=== PATIENT | female | born 1985 | race Caucasian/White ===

== ENCOUNTER 2017-12-04 23:39 | Emergency (ER) | payer OTHER ==
[2017-12-04 23:50] VITALS: PULSE 82; TEMP 98.1; BMI 34.3
[2017-12-05] MEDS ORDERED: ACETAMINOPHEN 500 MG TABLET (FP) PO ONE (00:28)
--- NOTE | 2017-12-05 00:33 | PDOC ---
History of Present Illness - General Chief Complaint: Vaginal Bleeding Stated Complaint: , BLEEDING History Source: Patient Exam Limitations: No Limitations - History of Present Illness Initial Comments: 12/05/17 00:29 Patient is a 15-year-old female LMP 10/05/17 ectopic 2 complaining off lower abdominal pain mostly on the left side radiating to the back with vaginal bleeding CONFIGURATION MANAGEMENT SPECIALIST. Patient states that she had a little bit of cramping in her back tonight but when the bleeding started decided to come to the emergency room for evaluation. States she has been having 48 hour beta check last beta on 12/02/17 was 237. PMD: [facility] DESPATCH CLERK: Dr Mcmullen at [facility] PMHX: as above PSOCHX: neg etoh, drug, cig ALL: NKDA GENERAL/CONSTITUTIONAL: [No fever or chills. No weakness. No weight change.] HEAD, EYES, EARS, NOSE AND THROAT: [No change in vision. No ear pain or discharge. No sore throat.] CARDIOVASCULAR: [No chest pain or shortness of breath.] RESPIRATORY: [No cough, wheezing, or hemoptysis.] GASTROINTESTINAL: [No nausea, vomiting, diarrhea or constipation. No rectal bleeding.] GENITOURINARY: [No dysuria, frequency, or change in urination.] MUSCULOSKELETAL: [No joint or muscle swelling or pain. No neck or back pain.] SKIN AND BREASTS: [No rash or easy bruising.] NEUROLOGIC: [No headache, vertigo, loss of consciousness, or loss of sensation.] PSYCHIATRIC: [No depression or anxiety.] ENDOCRINE: [No increased thirst. No abnormal weight change.] HEMATOLOGIC/LYMPHATIC: [No anemia, easy bleeding, or history of blood clots.] ALLERGIC/IMMUNOLOGIC: [No hives or skin allergy. No latex allergy.] GENERAL: [The patient is awake, alert, and fully oriented, in mild distress.] HEAD: [Normal with no signs of trauma.] EYES: [Pupils equal, round and reactive to light, extraocular movements intact, sclera anicteric, conjunctiva clear.] ENT: [Ears normal, nares patent, oropharynx clear without exudates. Moist mucous membranes.] NECK: [Normal range of motion, supple without lymphadenopathy, JVD, or masses.] LUNGS: [Breath sounds equal, clear to auscultation bilaterally. No wheezes, and no crackles.] HEART: [Regular rate and rhythm, normal S1 and S2 without murmur, rub.] ABDOMEN: [Soft, (+) mild tenderness to the lower abd, normoactive bowel sounds. No guarding, no rebound. No masses.] EXTREMITIES: [Normal range of motion, no edema. No clubbing or cyanosis. No cords, erythema, or tenderness.] PELVIC: drak blood in the vault, no bleeding external os finger tip, NEUROLOGICAL: [Cranial nerves II through XII grossly intact. Normal speech, normal gait.] PSYCH: [Normal mood, normal affect.] SKIN: [Warm, Dry, normal turgor, no rashes or lesions noted.] Past History - Past Medical History Allergies/Adverse Reactions: Allergies Allergy/AdvReac Type Severity Reaction Status Date / Time No Known Allergies Allergy Verified 12/04/17 23:50 Home Medications: Ambulatory Orders Pnv,Calcium 72/Iron/Folic Acid [ Plus Tablet] 1 each PO DAILY 12/18/13 Montelukast Na [Singulair -] 10 mg PO HS 03/08/14 Albuterol Sulfate Inhaler - [Ventolin HFA Inhaler -] 1 - 2 inh PO DAILY Asthma: Yes Cancer: No Cardiac Disorders: No COPD: No Diabetes: No GI Disorders: Yes (GASTRITIS) HTN: No Seizures: No Thyroid Disease: No - Immunization History Immunization Up to Date: Yes - Suicide/Smoking/Psychosocial Hx Smoking History: Never smoked Have you smoked in the past 12 months: No Hx Alcohol Use: No Drug/Substance Use Hx: No Substance Use Type: None Hx Substance Use Treatment: No *Physical Exam - Vital Signs Last Vital Signs Temp Pulse Resp BP Pulse Ox 98.1 F 82 18 116/68 98 12/04/17 23:48 12/04/17 23:48 12/04/17 23:48 12/04/17 23:48 12/04/17 23:48 ED Treatment Course - LABORATORY CBC & Chemistry Diagram: 12/05/17 00:00 12/05/17 00:00 - RADIOLOGY Radiology Studies Ordered: Category Date Time Status <14WKS US [US] Stat Ultrasound 12/05/17 00:27 Ordered Medical Decision Making - Medical Decision Making 12/05/17 00:29 Patient is a 32-year-old female LMP 10/05/17 ectopic 2 complaining off lower abdominal pain mostly on the left side radiating to the back with vaginal bleeding CONFIGURATION MANAGEMENT SPECIALIST. Laboratory Tests 12/05/17 00:00 Blood Type O POSITIVE No acute findings on lab work HCG Quant 260 INTERPRETING RADIOLOGIST: Flora Riley MD Electronically Signed: Dec 05, 2017 01:35AM EDT 12/05/17 02:46 Patient Full Name: CLYDE KRUGER Patient Accession No: [id number] Patient : 1985 Reason for Exam: vag bleeding r/o ectopic Referring Physician: Patient Name: SASKIA TANG THIS IS A PRELIMINARY REPORT FROM IMAGING BUILDING SERVICE WORKER DATE OF SERVICE: 2017-12-05 00:46:08 IMAGES: 28 EXAM: OB Ultrasound < 14 wks single fetus and Duplex scan pelvis, complete No visible intrauterine gestational sac, possibly due to early gestation or spontaneous . Endometrial stripe thickness 10 mm. No adnexal masses appreciated. Advise correlation with quantitative serial beta-hCG and follow-up ultrasound as clinically indicated to exclude possibility of nonvisualized ectopic . No ovarian torsion. Color flow on the left and bilateral arterial and venous waveforms. 1.8 cm corpus luteum left ovary. No free fluid. THIS DOCUMENT HAS BEEN ELECTRONICALLY SIGNED Flora Riley M.D. 12/05/2017 01:34 HUGH Bacon Please call Imaging Automotive Diagnostic Technician [phone] ([phone]) with questions. INTERPRETING RADIOLOGIST: Flora Riley MD Electronically Signed: Dec 05, 2017 01:35AM EDT 12/05/17 03:02 Findings discussed with the patient she is aware that this could still be an ectopic . States she will follow-up with her DESPATCH CLERK today. 12/05/17 03:07 *DC/Admit/Observation/Transfer Diagnosis at time of Disposition: Vaginal bleeding during - Discharge Dispostion Disposition: HOME Condition at time of disposition: Stable - Referrals Referrals: Collette Friedman MD [Primary Care Provider] - - Patient Instructions Printed Discharge Instructions: DI for Vaginal Bleeding During , DI for Ectopic Additional Instructions: Your Discharge Instructions: You must call primary care physician within 24 hours to arrange follow-up. Return to the Emergency Department with any new, persistent or worsening symptoms, for fever, chills, SOB, dizziness or any other concerning changes that may occur. You must follow-up with her DESPATCH CLERK today for repeat blood testing and further evaluation. - Post Discharge Activity
[2017-12-05 01:09] LABS: BASO % 0.6 % (0-2.0); EOS % 2.8 % (0-4.5); HEMATOCRIT 36.2 % (32.4-45.2); HEMOGLOBIN 12.2 GM/dL (10.7-15.3); LYMPH % 31.3 % (8-40); MCHC 33.6 g/dl (32.0-36.0); MEAN CELL VOLUME 86.5 fl (80-96); MEAN PLT VOLUME 8.6 fl (7.5-11.1); MONO % 5.1 % (3.8-10.2); NEUT % 60.2 % (42.8-82.8); PLATELET COUNT 319 K/MM3 (134-434); RBC 4.19 M/mm3 (3.60-5.2); RDW 13.9 % (11.6-15.6)
[2017-12-05] MEDS ORDERED: ACETAMINOPHEN 325 MG TABLET (FP) ONE (01:25)
[2017-12-05 01:33] LABS: ALBUMIN 3.9 g/dl (3.4-5.0); ALK PHOS 76 U/L (45-117); ANION GAP 6 MMOL/L (8-16); BILIRUBIN,TOTAL 0.2 mg/dL (0.2-1); BLOOD UREA NITROGEN 8 mg/dL (7-18); CALCIUM 8.9 mg/dL (8.5-10.1); CHLORIDE 104 mmol/L (98-107); CO2 27 mmol/L (21-32); CREATININE 0.8 mg/dL (0.55-1.3); GLUCOSE,RANDOM 98 mg/dL (74-106); POTASSIUM 3.7 mmol/L (3.5-5.1); SGOT/AST 14 U/L (15-37); SGPT/ALT 25 U/L (13-61); SODIUM 138 mmol/L (136-145); TOT PROT 7.4 g/dl (6.4-8.2)
[2017-12-05 03:10] VITALS: BP 106/73
== END 2017-12-05 03:22 | disposition home or self-care (01) ==
LOC: JER 23:39
DX: O26.891 Other specified pregnancy related conditions, first trimester (principal); O20.8 Other hemorrhage in early pregnancy; Z3A.00 Weeks of gestation of pregnancy not specified
CPT/HCPCS: 36415; 76817-TC; 80053; 84702; 85025; 86850; 86900; 86901; 99282-25

== ENCOUNTER 2017-12-23 22:11 | Emergency (ER) | payer OTHER ==
[2017-12-23 22:19] VITALS: BP 108/66; PULSE 72; TEMP 97.9; BMI 35.2
--- NOTE | 2017-12-23 22:36 | PDOC ---
History of Present Illness - General History Source: Patient Exam Limitations: No Limitations - History of Present Illness Initial Comments: 12/23/17 23:49 The patient is a 32 year old female () with a significant PMH of asthma and gastritis who presents to the emergency department from her OB for evaluation of possible ectopic . The patient report sthat she has had a history of several ectopics in the past by which her right tube was removed. The patient reports some associated abdominal cramping , lightheadedness . the patient was concerned for possible rupture of left ectopic. The patient denies any other symptoms. She denies any fever, chills, nausea, vomiting, diarrhea, constipation or urinary symptoms. She denies any chest pain, shortness of breath , headache or dizziness. The patient denies any other complaints. <Nishant Zendejas - Last Filed: 12/23/17 23:49> <Maggy Lebron - Last Filed: 12/24/17 01:20> - General Chief Complaint: Vaginal Sxs Stated Complaint: ECTOPIC Time Seen by Provider: 12/23/17 22:24 Past History <Nishant Zendejas - Last Filed: 12/23/17 23:49> - Past Medical History Asthma: Yes Cancer: No Cardiac Disorders: No COPD: No Diabetes: No GI Disorders: Yes (GASTRITIS) HTN: No Seizures: No Thyroid Disease: No - Reproductive History (#): 4 Para: 1 Ectopic : Yes (X2) - Immunization History Immunization Up to Date: Yes - Suicide/Smoking/Psychosocial Hx Smoking History: Never smoked Have you smoked in the past 12 months: No Hx Alcohol Use: No Drug/Substance Use Hx: No Substance Use Type: None Hx Substance Use Treatment: No <Maggy Lebron - Last Filed: 12/24/17 01:20> - Past Medical History Allergies/Adverse Reactions: Allergies Allergy/AdvReac Type Severity Reaction Status Date / Time No Known Allergies Allergy Verified 12/23/17 22:19 Home Medications: Ambulatory Orders Montelukast Na [Singulair -] 10 mg PO HS 03/08/14 Albuterol Sulfate Inhaler - [Ventolin HFA Inhaler -] 1 - 2 inh PO DAILY PRN 12/12 metFORMIN HCL [Metformin HCl] 500 mg PO BID 12/05/17 Review of Systems - Review of Systems Able to Perform ROS?: Yes Comments:: 12/23/17 23:49 GENERAL/CONSTITUTIONAL: No fever or chills. No weakness. HEAD, EYES, EARS, NOSE AND THROAT: No change in vision. No ear pain or discharge. No sore throat. CARDIOVASCULAR: No chest pain or shortness of breath. RESPIRATORY: No cough, wheezing, or hemoptysis. GASTROINTESTINAL: No nausea, vomiting, diarrhea or constipation. GENITOURINARY: (+)abdominal cramping. No dysuria, frequency, or change in urination. MUSCULOSKELETAL: No joint or muscle swelling or pain. No neck or back pain. SKIN: No rash NEUROLOGIC: (+)lightheaded. No headache, vertigo, loss of consciousness, or change in strength/sensation. ENDOCRINE: No increased thirst. No abnormal weight change. HEMATOLOGIC/LYMPHATIC: No anemia, easy bleeding, or history of blood clots. ALLERGIC/IMMUNOLOGIC: No hives or skin allergy. <Nishant Zendejas - Last Filed: 12/23/17 23:49> *Physical Exam - Vital Signs Last Vital Signs Temp Pulse Resp BP Pulse Ox 97.9 F 72 18 108/66 98 12/23/17 22:17 12/23/17 22:17 12/23/17 22:17 12/23/17 22:17 12/23/17 22:17 - Physical Exam Comments: 12/23/17 23:49 GENERAL: Awake, alert, and fully oriented, in no acute distress HEAD: No signs of trauma EYES: PERRLA, EOMI, sclera anicteric, conjunctiva clear ENT: Auricles normal inspection, hearing grossly normal, nares patent, oropharynx clear without exudates. Moist mucosa NECK: Normal ROM, supple, no lymphadenopathy, JVD, or masses LUNGS: Breath sounds equal, clear to auscultation bilaterally. No wheezes, and no crackles HEART: Regular rate and rhythm, normal S1 and S2, no murmurs, rubs or gallops ABDOMEN: Soft, nontender, normoactive bowel sounds. No guarding, no rebound. No masses. No free fluid on bedside US. EXTREMITIES: Normal range of motion, no edema. No clubbing or cyanosis. No cords, erythema, or tenderness NEUROLOGICAL: Cranial nerves II through XII grossly intact. Normal speech, normal gait SKIN: Warm, Dry, normal turgor, no rashes or lesions noted. <Nishant Zendejas - Last Filed: 12/23/17 23:49> - Vital Signs Last Vital Signs Temp Pulse Resp BP Pulse Ox 97.9 F 72 18 108/66 98 12/23/17 22:17 12/23/17 22:17 12/23/17 22:17 12/23/17 22:17 12/23/17 22:17 <Maggy Lebron - Last Filed: 12/24/17 01:20> ED Treatment Course - LABORATORY CBC & Chemistry Diagram: 12/23/17 22:52 12/23/17 22:52 - ADDITIONAL ORDERS Additional order review: Laboratory Results 12/23/17 12/23/17 22:52 22:52 Sodium 141 Potassium 3.8 Chloride 107 Carbon Dioxide 24 Anion Gap 10 BUN 10 Creatinine 0.7 Creat Clearance w eGFR > 60 Random Glucose 105 Calcium 8.5 Total Bilirubin 0.3 AST 13 L ALT 33 Alkaline Phosphatase 80 Total Protein 7.0 Albumin 3.5 Beta HCG, Quant 742.6 Urine Color Yellow Urine Appearance Slcloudy Urine pH 5.0 Ur Specific [place] 1.013 Urine Protein Negative Urine Glucose (UA) Negative Urine Ketones Negative Urine Blood 3+ H Urine Nitrite Negative Urine Bilirubin Negative Urine Urobilinogen Negative Ur Leukocyte Esterase 1+ H Urine WBC (Auto) 10 Urine RBC (Auto) 1 Ur Epithelial Cells Few Urine Bacteria Rare Urine Mucus Rare 12/23/17 22:52 RBC 4.17 MCV 86.9 MCHC 33.4 RDW 14.1 MPV 8.1 Neutrophils % 57.1 Lymphocytes % 30.1 Monocytes % 5.9 D Eosinophils % 6.4 H Basophils % 0.5 <Nishant Zendejas - Last Filed: 12/23/17 23:49> - LABORATORY CBC & Chemistry Diagram: 12/23/17 22:52 12/23/17 22:52 <Maggy Lebron - Last Filed: 12/24/17 01:20> Medical Decision Making - Medical Decision Making 12/23/17 22:44 a/p: 32yo with 2 prior ectopic pregnancies - one with ruptured R fallopian tube presents with concern for poss rupture of her L ectopic -known ectopic - given methotrexate x two doses -pt states she is concerned she has ruptured -pt walks in NAD -abd is soft, nt, nd -bedside ultrasound is negative for FF -will send labs, beta, type and screen, and TVUS -case discussed with Dr. Chantelle Carroll [phone] who agrees with the plan and requests call with results 12/24/17 00:06 outpt beta 880 yesterday beta 742 today 12/24/17 00:07 12/24/17 01:10 pt without adnexal mass, no ff, no iup on ultrasound case again discussed with Dr. Carroll beta is decreasing stable for d/c to home 12/24/17 01:11 O+ on labs <Maggy Lebron - Last Filed: 12/24/17 01:20> *DC/Admit/Observation/Transfer - Attestations Scribe Attestion: 12/23/17 23:51 Documentation prepared by Nishant Zendejas, acting as medical radiation therapist for Maggy Lebron MD. <Nishant Zendejas - Last Filed: 12/23/17 23:49> - Discharge Dispostion Decision to Admit order: No - Attestations Physician Attestion: 12/24/17 01:19 I, Dr. Maggy Lebron, DO, attest that this document has been prepared under my direction and personally reviewed by me in its entirety. I further attest, that it accurately reflects all work, treatment, procedures and medical decision -making performed by me. <Maggy Lebron - Last Filed: 12/24/17 01:20> Diagnosis at time of Disposition: Ectopic - Discharge Dispostion Disposition: HOME Condition at time of disposition: Stable - Referrals Referrals: Collette Friedman MD [Primary Care Provider] - Yousif Sagastume MD [Staff Physician] - - Patient Instructions Printed Discharge Instructions: DI for Ectopic Additional Instructions: Please follow up with your SOFTWARE SALES REPRESENTATIVE as discussed. Please drink plenty of fluids. Please return to the ED with any further concerns or complaints.
[2017-12-23 23:13] LABS: BASO % 0.5 % (0-2.0); EOS % 6.4 % (0-4.5); HEMATOCRIT 36.3 % (32.4-45.2); HEMOGLOBIN 12.1 GM/dL (10.7-15.3); LYMPH % 30.1 % (8-40); MCHC 33.4 g/dl (32.0-36.0); MEAN CELL VOLUME 86.9 fl (80-96); MEAN PLT VOLUME 8.1 fl (7.5-11.1); MONO % 5.9 % (3.8-10.2); NEUT % 57.1 % (42.8-82.8); PLATELET COUNT 302 K/MM3 (134-434); RBC 4.17 M/mm3 (3.60-5.2); RDW 14.1 % (11.6-15.6); URINE APPEARANCE SLCLOUDY; URINE BILIRUBIN NEGATIVE (<2.0 mg/dL); URINE COLOR YELLOW; URINE GLUCOSE (UA) NEGATIVE (NEGATIVE); URINE KETONE NEGATIVE (NEGATIVE); URINE LEUK ESTERASE 1+ (NEGATIVE); URINE NITRITE NEGATIVE (NEGATIVE); URINE PROTEIN NEGATIVE (NEGATIVE); URINE UROBILINOGEN NEGATIVE mg/dL (0.2-1.0); WHITE BLOOD COUNT 9.2 K/mm3 (4.0-10.0)
[2017-12-23 23:18] LABS: EPI CELLS FEW /HPF (FEW); URINE BACTERIA RARE /hpf (NONE SEEN); URINE MUCUS RARE
[2017-12-23] MEDS ORDERED: SODIUM CHLORIDE 0.9% 1000 ML INFUS.BAG IV ONE (23:36)
[2017-12-23 23:47] LABS: ALBUMIN 3.5 g/dl (3.4-5.0); ALK PHOS 80 U/L (45-117); ANION GAP 10 MMOL/L (8-16); BILIRUBIN,TOTAL 0.3 mg/dL (0.2-1); BLOOD UREA NITROGEN 10 mg/dL (7-18); CALCIUM 8.5 mg/dL (8.5-10.1); CHLORIDE 107 mmol/L (98-107); CO2 24 mmol/L (21-32); CREATININE 0.7 mg/dL (0.55-1.3); GLUCOSE,RANDOM 105 mg/dL (74-106); POTASSIUM 3.8 mmol/L (3.5-5.1); SGOT/AST 13 U/L (15-37); SGPT/ALT 33 U/L (13-61); SODIUM 141 mmol/L (136-145)
[2017-12-23] MEDS ORDERED: ONDANSETRON 4 MG/2 ML VIAL ONE (23:58)
[2017-12-24] MEDS ORDERED: ONDANSETRON 4 MG/2 ML VIAL IVPUSH ONE (00:02)
[2017-12-24] MEDS ORDERED: METOCLOPRAMIDE HCL INJECTION 10 MG/2 ML VIAL IVPUSH ONE (01:11)
[2017-12-24] MEDS ORDERED: METOCLOPRAMIDE HCL INJECTION 10 MG/2 ML VIAL ONE (01:21)
== END 2017-12-24 01:57 | disposition home or self-care (01) ==
LOC: JER 22:11
PROC: 3E033GC Introduction of Other Therapeutic Substance into Peripheral Vein, Percutaneous Approach (ICD-10-PCS; principal; 2017-12-23)
PROC: 3E033GC Introduction of Other Therapeutic Substance into Peripheral Vein, Percutaneous Approach (ICD-10-PCS; 2017-12-23)
DX: O00.90 Unspecified ectopic pregnancy without intrauterine pregnancy (principal); Z3A.00 Weeks of gestation of pregnancy not specified
CPT/HCPCS: 36415; 76817-TC; 80053; 81003; 81015; 84702; 85025; 86850; 86900; 86901; 87086; 99281-25; J7030

== ENCOUNTER 2017-12-31 07:29 | Day surgery (SDC) | payer OTHER ==
[2017-12-31 07:32] VITALS: BMI 35.2
--- NOTE | 2017-12-31 07:34 | PDOC ---
Attending Attestation - Resident Resident Name: Arben Josue - HPI HPI: 12/31/17 12:26 Pt presents to the ED complaining of the acute onset of severe left lower abdominal pain that started last night. History of known ectopic in the L adnexa--treated with methotrexate. Followed by Dr. Dale. Patient was refusing surgery and bHCG was declining after surgery, but today complains of severely worsening pain. Patient is extremely uncomfortable and unable to give complete history. - Physicial Exam PE: 12/31/17 12:31 Agree with resident exam. Patient is extremly uncomfortable, tearful and writhing on the stretcher. Abdomen is soft, non distended and without localizing tenderness. Normotensive. - Critical Care Time Total Critical Care Time: 30 Critical Care Statement: The care of this patient involved high complexity decision making to prevent further life threatening deterioration of the patient 's condition and/or to evaluate & treat vital organ system(s) failure or risk of failure. - Medical Decision Making 12/31/17 12:32 Pt presents to the ED complaining of severe pain. Pt has known history of ectopic. Concern for ruptured ectopic. Bedside FAST negative. patient requiring multiple doses of fentynyl for pain control. Official US shows persistent ectopic. Dr. Dale at the bedside, will take patient to the OR.
[2017-12-31 07:52] LABS: BASO % 1.3 % (0-2.0); EOS % 7.9 % (0-4.5); HEMOGLOBIN 13.1 GM/dL (10.7-15.3); LYMPH % 39.8 % (8-40); MCH 29.9 pg (25.7-33.7); MCHC 34.4 g/dl (32.0-36.0); MEAN CELL VOLUME 86.8 fl (80-96); MEAN PLT VOLUME 8.2 fl (7.5-11.1); MONO % 5.9 % (3.8-10.2); NEUT % 45.1 % (42.8-82.8); PLATELET COUNT 363 K/MM3 (134-434); RBC 4.38 M/mm3 (3.60-5.2); RDW 14.3 % (11.6-15.6); WHITE BLOOD COUNT 7.2 K/mm3 (4.0-10.0)
[2017-12-31 08:06] LABS: INR 0.97 (0.83-1.09); PROTHROMBIN TIME (PATIENT) 11.4 SEC (9.7-13.0)
[2017-12-31 08:09] LABS: ACTIVATED PTT 29.1 SECONDS (25.2-36.5)
[2017-12-31 08:18] LABS: ALBUMIN 3.7 g/dl (3.4-5.0); ALK PHOS 90 U/L (45-117); ANION GAP 7 MMOL/L (8-16); BILIRUBIN,TOTAL 0.2 mg/dL (0.2-1); BLOOD UREA NITROGEN 10 mg/dL (7-18); CALCIUM 8.8 mg/dL (8.5-10.1); CHLORIDE 104 mmol/L (98-107); CO2 26 mmol/L (21-32); CREATININE 0.8 mg/dL (0.55-1.3); GLUCOSE,RANDOM 107 mg/dL (74-106); POTASSIUM 4.1 mmol/L (3.5-5.1); SGOT/AST 12 U/L (15-37); SGPT/ALT 22 U/L (13-61); SODIUM 137 mmol/L (136-145); TOT PROT 7.3 g/dl (6.4-8.2)
--- NOTE | 2017-12-31 09:53 | PDOC ---
History of Present Illness - General Chief Complaint: Pain, Acute Stated Complaint: PAIN Time Seen by Provider: 12/31/17 07:34 History Source: Patient Exam Limitations: No Limitations - History of Present Illness Initial Comments: 12/31/17 09:44 32 yo female PMH of ectopic and also current known ectopic non responsive to methotrexate presents to the ED with severe abdominal pain. States the pain started 10:30 pm last night and has progressively worsened over the course of the night. Dr. Dale (OB drafter electronic) is aware of the patient and is on route to the hospital. Past History - Past Medical History Allergies/Adverse Reactions: Allergies Allergy/AdvReac Type Severity Reaction Status Date / Time No Known Allergies Allergy Verified 12/23/17 22:19 Home Medications: Ambulatory Orders Montelukast Na [Singulair -] 10 mg PO HS 03/08/14 Albuterol Sulfate Inhaler - [Ventolin HFA Inhaler -] 1 - 2 inh PO DAILY PRN 12/12 metFORMIN HCL [Metformin HCl] 500 mg PO BID 12/05/17 Asthma: Yes Cancer: No Cardiac Disorders: No COPD: No Diabetes: No GI Disorders: Yes (GASTRITIS) HTN: No Seizures: No Thyroid Disease: No Other medical history: ectopic 01/15 - Reproductive History (#): 4 Para: 1 Ectopic : Yes (X2) - Immunization History Immunization Up to Date: Yes - Suicide/Smoking/Psychosocial Hx Smoking History: Unknown if ever smoked Have you smoked in the past 12 months: No Hx Alcohol Use: No Drug/Substance Use Hx: No Substance Use Type: None Hx Substance Use Treatment: No *Physical Exam - Vital Signs Last Vital Signs Temp Pulse Resp BP Pulse Ox 105 H 22 H 111/88 98 12/31/17 07:29 12/31/17 07:29 12/31/17 07:29 12/31/17 07:29 ED Treatment Course - LABORATORY CBC & Chemistry Diagram: 12/31/17 07:40 12/31/17 07:40 - ADDITIONAL ORDERS Additional order review: Laboratory Results 12/31/17 12/31/17 12/31/17 07:42 07:40 07:40 PT with INR 11.40 INR 0.97 PTT (Actin FS) 29.1 Sodium 137 Potassium 4.1 Chloride 104 Carbon Dioxide 26 Anion Gap 7 L BUN 10 Creatinine 0.8 Creat Clearance w eGFR > 60 Random Glucose 107 H Calcium 8.8 Total Bilirubin 0.2 AST 12 L ALT 22 Alkaline Phosphatase 90 Total Protein 7.3 Albumin 3.7 Beta HCG, Quant 417.7 12/31/17 07:40 RBC 4.38 MCV 86.8 MCHC 34.4 RDW 14.3 MPV 8.2 Neutrophils % 45.1 D Lymphocytes % 39.8 D Monocytes % 5.9 Eosinophils % 7.9 H Basophils % 1.3 - RADIOLOGY Radiology Studies Ordered: Category Date Time Status TRANSVAGINAL US PREG [US] Stat Ultrasound 12/31/17 07:44 Taken - Medications Given in the ED: ED Medications Discontinued Medications Generic Name Dose Route Start Last Admin Trade Name Freq PRN Reason Stop Dose Admin Fentanyl 50 mcg 12/31/17 07:35 12/31/17 07:34 Sublimaze Injection - IVPUSH 12/31/17 07:36 50 mcg ONCE ONE Administration Fentanyl 50 mcg 12/31/17 08:44 12/31/17 08:53 Sublimaze Injection - IVPUSH 12/31/17 08:45 50 mcg ONCE ONE Administration *DC/Admit/Observation/Transfer Diagnosis at time of Disposition: Ectopic , tubal Qualifiers: Intrauterine status: unspecified Laterality: unspecified laterality Qualified Code(s): O00.109 - Unspecified tubal without intrauterine - Discharge Dispostion Condition at time of disposition: Stable - Referrals - Patient Instructions - Post Discharge Activity
[2017-12-31] MEDS ORDERED: BUPIVACAINE HCL/PF 0.5% (5MG/ML) 10 ML VIAL ONE (11:09)
[2017-12-31] MEDS ORDERED: ONDANSETRON 4 MG/2 ML VIAL IVPUSH PRN (11:37)
[2017-12-31] MEDS ORDERED: PROMETHAZINE HCL 25 MG/1 ML VIAL IVPUSH PRN (11:37)
[2017-12-31] MEDS ORDERED: LACTATED RINGERS SOLUTION 1,000 ML IV SCH ×2 (11:45→13:45)
[2017-12-31] MEDS ORDERED: GLYCOPYRROLATE 0.2 MG/1 ML VIAL ONE (11:49)
[2017-12-31] MEDS ORDERED: fentaNYL CITRATE 250 MCG/5 ML VIAL ONE (11:49)
[2017-12-31] MEDS ORDERED: DEXAMETHASONE SOD PHOSPHATE 4 MG/1 ML VIAL ONE (11:49)
[2017-12-31] MEDS ORDERED: KETOROLAC TROMETHAMINE 30 MG/1 ML VIAL ONE (11:49)
[2017-12-31] MEDS ORDERED: ceFAZolin SODIUM 1 GM VIAL ONE (11:49)
[2017-12-31] MEDS ORDERED: ROCURONIUM BROMIDE 50 MG/5 ML VIAL ONE (11:50)
[2017-12-31] MEDS ORDERED: PROPOFOL 20 ML ONE ×2 (11:50)
[2017-12-31] MEDS ORDERED: LIDOCAINE HCL/PF 2% SDV 5ML VIAL ONE (11:50)
[2017-12-31] MEDS ORDERED: MIDAZOLAM HCL 2 MG/2 ML SINGLE DOSE VIAL ONE ×2 (11:50→12:22)
[2017-12-31] MEDS ORDERED: SUCCINYLCHOLINE CHLORIDE 200 MG/10 ML VIAL ONE (11:50)
[2017-12-31] MEDS ORDERED: NEOSTIGMINE METHYLSULFATE 0.5 MG/ML - 10 ML MDV ONE (11:50)
[2017-12-31] MEDS ORDERED: ALBUTEROL SO4 8 GM HFA INHALER IH ONE (11:57)
[2017-12-31] MEDS ORDERED: ACETAMINOPHEN INJECTION 100 ML IVPB ONE (12:13)
[2017-12-31] MEDS ORDERED: methylPREDNISolone ACET (DEPO) 80 MG/1 ML VIAL ONE (12:13)
[2017-12-31] MEDS ORDERED: KETAMINE HCL 200 MG/20 ML VIAL ONE (12:19)
--- NOTE | 2017-12-31 12:30 | EKG ---
Test Reason : Blood Pressure : / mmHG Vent. Rate : 080 BPM Atrial Rate : 080 BPM P-R Int : 136 ms QRS Dur : 076 ms QT Int : 382 ms P-R-T Axes : 058 083 039 degrees QTc Int : 440 ms NORMAL SINUS RHYTHM NORMAL ECG WHEN COMPARED WITH ECG OF 18-DEC-2017 17:55, NO SIGNIFICANT CHANGE WAS FOUND Confirmed by JE HUMMEL MD ([id number]) on 12/31/2017 12:29:30 PM Referred By: Confirmed By:JE HUMMEL MD
[2017-12-31] MEDS ORDERED: ceFAZolin SODIUM 1 GM VIAL IVPB ONE (12:37)
[2017-12-31] MEDS ORDERED: LIDOCAINE HCL 2% JELLY (5 ML/TUBE) ONE (13:07)
[2017-12-31] MEDS ORDERED: BUPIVACAINE HCL/PF (5 MG/ML) 30 ML VIAL IJ ONE (13:14)
--- NOTE | 2017-12-31 13:36 | HP ---
Admitting History and Physical - Admission History of Present Illness: 32 yo with hx/o known ectopic s/p methotrexate x 2, declining bHCGs in severe pain she was counseled previously regarding sugical intervention in the past, but declined surgery. She presents with chief complaint of severe abdominal and back pain, feeling "like the last time my tube ruptured" course of treatment: 11/28 bHCG 45.4 11/30 bHCG 102.1 12/02 bHCG 237.30 12/05 bHCG 179.6 12/07 bHCG 273.80 12/08 bHCG 335; MTX [facility] 12/16 MTX 100mg given 12/19 [facility] 927.6 12/26 bHCG 740.40 12/29 [facility] 496.30 Limitations to Obtaining History: No Limitations - Past Medical History Pulmonary: Yes: Asthma Gastrointestinal: Yes: GERD, Other (Fatty Liver Disease) ...LMP: 10/05/17 Psych: Yes: Other (nervous tic) - Past Surgical History Additional Past Surgical History: Sinus surgery LS Right salpingectomy - Smoking History Smoking history: Unknown if ever smoked Have you smoked in the past 12 months: No - Alcohol/Substance Use Hx Alcohol Use: No Home Medications - Allergies Allergies/Adverse Reactions: Allergies Allergy/AdvReac Type Severity Reaction Status Date / Time No Known Allergies Allergy Verified 12/23/17 22:19 - Home Medications Home Medications: Ambulatory Orders Montelukast Na [Singulair -] 10 mg PO HS 03/08/14 Albuterol Sulfate Inhaler - [Ventolin HFA Inhaler -] 1 - 2 inh PO DAILY PRN 12/12 metFORMIN HCL [Metformin HCl] 500 mg PO BID 12/05/17 Acetaminophen W/ Codeine #3 [Tylenol # 3 -] 1 tab PO Q6H #10 tablet MDD 4 Review of Systems - Review of Systems Constitutional: reports: No Symptoms Cardiovascular: reports: No Symptoms Respiratory: reports: No Symptoms Gastrointestinal: reports: No Symptoms Genitourinary: reports: No Symptoms Integumentary: reports: No Symptoms Endocrine: reports: No Symptoms Psychiatric: reports: No Symptoms Physical Examination Vital Signs: Vital Signs Temperature 99.5 F 12/31/17 11:05 Pulse Rate 98 H 12/31/17 11:05 Respiratory Rate 16 11/03/18 11:05 Blood Pressure 110/71 12/31/17 11:05 O2 Sat by Pulse Oximetry (%) 96 12/31/17 11:05 Constitutional: Yes: Well Nourished, No Distress, Calm Cardiovascular: Yes: Regular Rate and Rhythm Respiratory: Yes: Regular, CTA Bilaterally Gastrointestinal: Yes: Normal Bowel Sounds, Soft Neurological: Yes: Alert, Oriented Psychiatric: Yes: Alert, Oriented Labs: CBC, BMP 12/31/17 07:40 12/31/17 07:40 Assessment/Plan 32 yo with known left ectopic pregnacy, s/p MTX x 2, withs evere pain, complex fluid in cul de sac, suspect rupture 1. Patient counseled regarding medical and surgical management, plan for laparoscopic left salpingostomy, possible salpingectomy. She desires to retain fertility if possible. Reviewed risk of infection, bleeding, damage to surrounding organs such as bowel, bladder, need for laprotomy She expressed understanding, written consent obtained 2. Notiied anesthesia nd OR staff 3. Will proceed to OR
--- NOTE | 2017-12-31 13:39 | OP ---
Operative Note - Note: Operative Date: 12/31/17 Pre-Operative Diagnosis: left ectopic Operation: laparoscopic left salpingectomy Findings: ruptured left ectopic , approximately 100 cc hemoperitoneum, normal ovaries bilaterally, partial right tube Surgeon: Joslyn Dale Office Nurse: Moncho Mcmullen Anesthesiologist/ETCHER ELECTROLYTIC: Leonel Page Anesthesia: General Specimens Removed: left fallopian tube and Estimated Blood Loss (mls): 5 Drains, Volume Out (mls): 250 Fluid Volume Replaced (mls): 1,500 Operative Report Dictated: Yes
[2017-12-31] MEDS ORDERED: IBUPROFEN 600 MG TABLET (FP) PO PRN (13:43)
[2017-12-31] MEDS ORDERED: oxyCODONE HCL 5 MG TABLET PO PRN (13:44)
[2017-12-31] MEDS: IBUPROFEN 800 MG/8 ML IJ IVPB PRN ×2 (16:30→23:39)
[2017-12-31] MEDS: ACETAMINOPHEN 325 MG TABLET (FP) PO PRN (17:13)
[2018-01-01] MEDS: ACETAMINOPHEN 325 MG TABLET (FP) PO PRN ×2 (01:20→08:37)
--- NOTE | 2018-01-01 08:00 | PN ---
Progress Note (SOAP) - Subjective History of Present Illness: Patient without acute complaitns Reports pain, moderately controlled with PO meds No N/V Tolerating PO No fevers or chils No Chest pain or shortness of breath - Current Medications Current Medications: Active Medications Acetaminophen (Tylenol -) 650 mg PO Q4H PRN PRN Reason: PAIN Last Admin: 01/01/18 01:20 EST Dose: 650 mg Lactated Ringer's (Lactated Ringers Solution) 1,000 mls @ 125 mls/hr IV ASDIR GILDA Last Admin: 12/31/17 15:35 Dose: 0 mls Lactated Ringer's (Lactated Ringers Solution) 1,000 mls @ 125 mls/hr IV ASDIR GILDA Ibuprofen (Motrin -) 600 mg PO Q6H PRN PRN Reason: FEVER Ibuprofen (Caldolor Injection -) 800 mg IVPB Q8H PRN PRN Reason: Fever - If PO not effective Last Admin: 12/31/17 23:39 Dose: 800 mg Ondansetron HCl (Zofran Injection) 4 mg IVPUSH Q6H PRN PRN Reason: NAUSEA AND/OR VOMITING Oxycodone HCl (Roxicodone -) 5 mg PO Q4H PRN PRN Reason: PAIN - Objective Vital Signs: Vital Signs Temperature 97.8 F 01/01/18 06:25 Pulse Rate 90 01/01/18 06:25 Respiratory Rate 20 01/01/18 06:25 Blood Pressure 108/63 01/01/18 06:25 O2 Sat by Pulse Oximetry (%) 98 01/01/18 06:25 Constitutional: Yes: Well Nourished, No Distress Respiratory: Yes: Regular, CTA Bilaterally Gastrointestinal: Yes: Normal Bowel Sounds, Soft Extremities: Yes: WNL Edema: No Wound/Incision: Yes: Clean/Dry, Well Approximated ...Motor Strength: Yes: WNL Psychiatric: Yes: Alert, Oriented Labs Lab Results: CBC, BMP 12/31/17 07:40 12/31/17 07:40 Assessment/Plan 32 yo POD # 1 s/p LS left salpingectomy, afebrile, vital signs stable, stable for discharge home today. 1. Patient stable for discharge home today. 2. Patient encouraged to contact MD for: - Severe pain not controlled by oral pain medication - Fevers or chills - Nausea or vomiting, intolerance of oral intake - Incision redness, tenderness or discharge 3. Patient to follow up in office in 1-2 weeks for incision check
--- NOTE | 2018-01-01 08:01 | PN ---
Progress Note (short form) - Note Progress Note: ANESTHESIOLOGY POST-OP CHECK 32F s/p laparoscopic left salpingectomy under general anesthesia, POD #1: No acute complaints. Denies N/V. Pain 12/07 to 7 with pain meds and tolerable. Vital Signs Temperature 97.8 F 01/01/18 06:25 Pulse Rate 90 01/01/18 06:25 Respiratory Rate 20 01/01/18 06:25 Blood Pressure 108/63 01/01/18 06:25 O2 Sat by Pulse Oximetry (%) 98 01/01/18 06:25 Active Medications Acetaminophen (Tylenol -) 650 mg PO Q4H PRN PRN Reason: PAIN Last Admin: 01/01/18 01:20 EST Dose: 650 mg Lactated Ringer's (Lactated Ringers Solution) 1,000 mls @ 125 mls/hr IV ASDIR GILDA Last Admin: 12/31/17 15:35 Dose: 0 mls Lactated Ringer's (Lactated Ringers Solution) 1,000 mls @ 125 mls/hr IV ASDIR GILDA Ibuprofen (Motrin -) 600 mg PO Q6H PRN PRN Reason: FEVER Ibuprofen (Caldolor Injection -) 800 mg IVPB Q8H PRN PRN Reason: Fever - If PO not effective Last Admin: 12/31/17 23:39 Dose: 800 mg Ondansetron HCl (Zofran Injection) 4 mg IVPUSH Q6H PRN PRN Reason: NAUSEA AND/OR VOMITING Oxycodone HCl (Roxicodone -) 5 mg PO Q4H PRN PRN Reason: PAIN Gen: awake, alert, NAD, smiling while conversing No apparent anesthesia complications. Pain controlled. Continue management as per primary team.
[2018-01-01 08:08] VITALS: BP 106/67; PULSE 78; TEMP 98.7
--- NOTE | 2018-01-01 17:08 | OP ---
DATE OF OPERATION: 12/31/2017 PREOPERATIVE DIAGNOSIS: Left ectopic . POSTOPERATIVE DIAGNOSIS: Ruptured left ectopic . SURGEON: Meli Mcgee MD ELECTROMEDICAL EQUIPMENT REPAIRER: Moncho Mcmuleln MD ANESTHESIA: Dr. Page; general anesthesia. SPECIMENS REMOVED: Left fallopian tube and . SURGERY: Laparoscopic left salpingectomy. FINDINGS: Ruptured left ectopic with approximately 100 mL of hemoperitoneum. Normal ovaries bilaterally. Partial right tube remnant noted. ESTIMATED BLOOD LOSS: 5 from the procedure. FLUIDS GIVEN: 1500. URINE OUTPUT: 250. INDICATION: The patient is a 32-year-old with known history of ectopic which failed medical management of methotrexate, presenting with severe abdominal pain. Ultrasound showed a left adnexal mass with possible complex fluid in the cul-de-sac with suspicion of blood. She was counseled regarding medical and surgical management. She was counseled regarding risks, benefits, alternatives, complications of the procedure, including infection, bleeding, damage to surrounding organs, removal of the tube, possible laparotomy. She expressed understanding and was brought to the operating room. When anesthesia was found to be adequate, the patient was prepped and draped in normal sterile fashion in the dorsal lithotomy position using Gustavo stirrups. A weighted speculum was placed in the patient's vagina, a HUMI uterine manipulator placed in the uterus, and a Matthew was placed to gravity. Attention was brought to the abdomen. A 5-mm incision made in the umbilicus and a Veress needle was used to insufflate the abdomen to an operative pressure of 16 mmHg of carbon dioxide gas. A 5-mm laparoscope was placed under direct visualization. Evaluation of the abdominal cavity revealed a hemoperitoneum and a left fallopian tube mass. A 5-mm trocar was placed in the right lower quadrant and a 10-mm trocar was placed in the left lower quadrant under direct visualization. The left fallopian tube was identified, was followed out to fimbriated end. A ruptured ectopic was noted and the decision was made to proceed with salpingectomy. A Harmonic electrosurgical scalpel was used to ligate the fallopian tube and the specimen was removed and sent to pathology. Copious irrigation was performed. Good hemostasis was noted. The 10-mm trocar was closed using the Matty-Sharp inlet closure device with a 0 Vicryl and pneumoperitoneum was released and all instruments removed from the patient's abdomen. The skin was reapproximated using 4-0 Monocryl and the patient was awoken from anesthesia, brought to the recovery room in stable condition. MELI MCGEE M.D. ALMA [id number]
--- NOTE | 2018-01-03 17:38 | PATH ---
Surgical Pathology Report Patient Name: SASKIA COKER [facility]. Rec. #: [id number] /Age/Gender: 1985 (Age: 32) / F Account: [id number] Location: AMBULATORY SURG Taken: 12/31/2017 Received: 01/02/2018 Reported: 01/03/2018 Physicians: Joslyn Dale PHYSICIAN EMERGENCY DEPT Specimen(s) Received LEFT FALLOPIAN TUBE Clinical History Ectopic Final Diagnosis FALLOPIAN TUBE, LEFT, LAPAROSCOPIC SALPINGECTOMY: CHORIONIC VILLI IN A BACKGROUND OF HEMORRHAGE PRESENT WITHIN THE FALLOPIAN TUBE, CONSISTENT WITH ECTOPIC . Electronically Signed Ruma Sharma M.D. Gross Description Received in formalin labeled "left fallopian tube," is a 4 cm in length dilated appearing portion of fallopian tube. The outer surface is green victoria with focal defects. Sectioning reveals a dilated lumen containing red-brown blood clot. The fimbria are separately received within the same container. No definite villous tissue or somatic tissue is identified. Also received within the same container is a 2.3 x 2.0 x 0.4 cm aggregate of red brown blood clot. Sales Promoter sections are submitted in 4 cassettes as follows: 1-fimbria; 2-3-cross sections of fallopian tube; 4-separately received blood clot. 01/02/201801/02/2018
== END 2018-01-01 10:15 | disposition home or self-care (01) ==
LOC: JER 07:29 → JASUSAT 09:51 → J3W 15:52 → JASUSAT 01-01 10:15
PROVIDERS: ATTEND Obstetrics & Gynecology
PROC: 0UT64ZZ Resection of Left Fallopian Tube, Percutaneous Endoscopic Approach (ICD-10-PCS; 2017-12-31)
PROC: 10T24ZZ Resection of Products of Conception, Ectopic, Percutaneous Endoscopic Approach (ICD-10-PCS; principal; 2017-12-31 12:00)
DX: O00.102 Left tubal pregnancy without intrauterine pregnancy (principal)
CPT/HCPCS: 36415; 76817-TC; 80053; 84702; 85025; 85610; 85730; 86850; 86900; 86901; 88305-TC; 93005; 93010; 94760; 99285-25; J0131

== ENCOUNTER 2018-07-29 02:16 | Emergency (ER) | payer OTHER | END 2018-07-29 07:07 | disposition home or self-care (01) | LOC: JER 02:16 ==

== ENCOUNTER 2018-09-09 19:57 | Emergency (ER) | payer OTHER ==
[2018-09-09 20:16] VITALS: BP 104/79; PULSE 68; TEMP 98.1; BMI 34.3
--- NOTE | 2018-09-09 20:25 | PDOC ---
History of Present Illness <NatashaSanketRegina - Last Filed: 09/09/18 23:30> - General History Source: Patient Exam Limitations: No Limitations <CarolcalixtoOrin mastersecca - Last Filed: 09/10/18 14:30> - General Chief Complaint: Pain Stated Complaint: SENT BY URGENT CARE Time Seen by Provider: 09/09/18 20:24 Past History <JohnsonWillRegina - Last Filed: 09/09/18 23:30> - Travel Traveled outside of the country in the last 30 days: No Close contact w/someone who was outside of country & ill: No - Past Medical History Anemia: No Asthma: Yes Cancer: No Cardiac Disorders: No COPD: No Diabetes: No GI Disorders: Yes (GASTRITIS) HTN: No Seizures: No Thyroid Disease: No - Reproductive History (#): 4 Para: 1 Ectopic : Yes (X2) - Immunization History Td Vaccination: Yes TDAP Vaccination: Yes Immunization Up to Date: Yes - Suicide/Smoking/Psychosocial Hx Smoking History: Never smoked Have you smoked in the past 12 months: No Hx Alcohol Use: No Drug/Substance Use Hx: No Substance Use Type: None Hx Substance Use Treatment: No <CarolcalixtoOrin mastersecca - Last Filed: 09/10/18 14:30> - Past Medical History Allergies/Adverse Reactions: Allergies Allergy/AdvReac Type Severity Reaction Status Date / Time No Known Allergies Allergy Verified 07/29/18 02:30 Home Medications: Ambulatory Orders Montelukast Na [Singulair -] 10 mg PO HS 03/08/14 Albuterol Sulfate Inhaler - [Ventolin HFA Inhaler -] 1 - 2 inh PO DAILY PRN 12/12 metFORMIN HCL [Metformin HCl] 1,000 mg PO BID 12/05/17 Budesonide/Formeterol Fumarate [SYMBICORT 160/4.5mcg -] 1 inh IH DAILY 07/29/18 Cyclobenzaprine HCl [Flexeril -] 10 mg PO HS #10 tablet 09/09/18 Ondansetron [Zofran Odt -] 4 mg SL TID #10 od.tablet 09/09/18 Oxycodone HCl/Acetaminophen [Percocet 5-325 mg Tablet] 1 tab PO Q6H #12 tablet MDD 4 09/09/18 Review of Systems - Review of Systems Able to Perform ROS?: Yes Comments:: 09/09/18 22:32 CONSTITUTIONAL: Absent: fever, chills, diaphoresis, generalized weakness, malaise, loss of appetite HEENT: Absent: rhinorrhea, nasal congestion, throat pain, throat swelling, difficulty swallowing, mouth swelling, ear pain, eye pain, visual Changes CARDIOVASCULAR: Absent: chest pain, loss of consciousness, palpitations, irregular heart rate, peripheral edema RESPIRATORY: Absent: cough, shortness of breath, dyspnea with exertion, orthopnea, wheezing, stridor, hemoptysis GASTROINTESTINAL: Absent: abdominal pain, abdominal distension, nausea, vomiting, diarrhea, constipation, melena, hematochezia GENITOURINARY: Absent: dysuria, frequency, urgency, hesitancy, hematuria, flank pain, genital pain MUSCULOSKELETAL: Present: L arm pain, back pain Absent: myalgia, arthralgia, joint swelling SKIN: Absent: rash, itching, pallor NEUROLOGIC: Absent: headache, focal weakness or paresthesias, dizziness, unsteady gait, seizure, mental status changes, bladder or bowel incontinence PSYCHIATRIC: Absent: anxiety, depression, suicidal or homicidal ideation, hallucinations. Is the patient limited Guatemalan proficient: No <Bethany Sosa - Last Filed: 09/10/18 14:30> *Physical Exam - Vital Signs Last Vital Signs Temp Pulse Resp BP Pulse Ox 98.1 F 68 20 104/79 97 09/09/18 20:14 09/09/18 20:14 09/09/18 20:14 09/09/18 20:14 09/09/18 20:14 <Regina Krishnan - Last Filed: 09/09/18 23:30> - Vital Signs Last Vital Signs Temp Pulse Resp BP Pulse Ox 98.1 F 68 20 104/79 97 09/09/18 20:14 09/09/18 20:14 09/09/18 20:14 09/09/18 20:14 09/09/18 20:14 - Physical Exam Comments: 09/09/18 22:36 GENERAL: Well developed, well nourished. Awake and alert. No acute distress. HEENT: Normocephalic, atraumatic. PERRLA, EOMI. No conjunctival pallor. Sclera are non- icteric. Moist mucous membranes. Oropharynx is clear. NECK: Supple. Full ROM. No JVD. Carotid pulses 2+ and symmetric, without bruits. No thyromegaly. No lymphadenopathy. MUSCULOSKELETAL TTP of the L paraspinsous muscles L1-L4 and T4-T10. No midline tenderness. (-) straight leg raise testing Normal range of motion at all joints. No bony deformities or tenderness. No CVA tenderness. EXTREMITIES: PMS intact in the LUE. Pt in soft volar long splint to the LUE. No cyanosis. No clubbing. No edema. No calf tenderness. SKIN: Warm and dry. Normal capillary refill. No rashes. No jaundice. NEUROLOGICAL: Alert, awake, appropriate. Cranial nerves 2-12 intact. No deficits to light touch and temperature in face, upper extremities and lower extremities. No motor deficits in the in face, upper extremities and lower extremities. Normoreflexic in the upper and lower extremities. Normal speech. Toes are down- going bilaterally. Gait is normal without ataxia. PSYCHIATRIC: Cooperative. Good eye contact. Appropriate mood and affect. <Bethany Sosa - Last Filed: 09/10/18 14:30> ED Treatment Course - Medications Given in the ED: ED Medications Discontinued Medications Generic Name Dose Route Start Last Admin Trade Name Freq PRN Reason Stop Dose Admin Cyclobenzaprine HCl 10 mg 09/09/18 20:40 09/09/18 20:53 Flexeril - PO 09/09/18 20:41 10 mg ONCE ONE Administration Ketorolac Tromethamine 60 mg 09/09/18 20:40 09/09/18 20:53 Toradol Injection - IM 09/09/18 20:41 60 mg ONCE ONE Administration Ondansetron HCl 4 mg 09/09/18 22:53 09/09/18 23:06 Zofran Odt - SL 09/09/18 22:54 4 mg ONCE ONE Administration Oxycodone/Acetaminophen 1 combo 09/09/18 22:53 09/09/18 23:05 Percocet 5/325 - PO 09/09/18 22:54 1 combo ONCE ONE Administration <Regina Krishnan - Last Filed: 09/09/18 23:30> Medical Decision Making - Medical Decision Making 09/09/18 22:40 patient is a 33-year-old female who presents here today for evaluation of her left upper extremity injury. She states that she was seen in urgent care earlier today. Yesterday she fell down 10 stairs on her left arm. She denies hitting her head or losing consciousness. She was diagnosed with a radial head fracture at Urgent care today. she was placed in a volar long-arm splint and told to come to the ER for a CAT scan of her elbow to see if she may need surgery. Patient is also complaining of low back pain at this time and muscle spasm. Denies numbness and tingling to the affected extremity, saddle anesthesia, bladder or bowel incontinence, gait changes. A/P: Left arm injury On exam patient in a volar long-arm splint and sling. PMS is currently intact. arm is not removed from the the sling or splint at this time. Tender to palpation of the paraspinous muscles L1-L5, T4-T10 Given mechanism of injury we will also order a CAT scan of the thoracic and lumbar spine. Patient has no head injury, no neck pain Flexeril, Toradol given for pain Patient returns from CAT scan, complaining of more pain now asking for Percocet. 1 tab with Zofran given Patient signed out to ELIOT Johnson, pending CT reads. Anticipate discharge <Bethany Sosa - Last Filed: 09/10/18 14:30> *DC/Admit/Observation/Transfer <Regina Krishnan - Last Filed: 09/09/18 23:30> - Discharge Dispostion Decision to Admit order: No <Bethany Sosa - Last Filed: 09/10/18 14:30> Diagnosis at time of Disposition: Elbow fracture Qualifiers: Encounter type: initial encounter Fracture type: closed Laterality: left Qualified Code(s): S42.402A - Unspecified fracture of lower end of left humerus , initial encounter for closed fracture Low back pain Qualifiers: Chronicity: acute Back pain laterality: left Sciatica presence: without sciatica Qualified Code(s): M54.5 - Low back pain - Discharge Dispostion Disposition: HOME Condition at time of disposition: Stable - Prescriptions Prescriptions: Cyclobenzaprine HCl [Flexeril -] 10 mg PO HS #10 tablet Ondansetron [Zofran Odt -] 4 mg SL TID #10 od.tablet Oxycodone HCl/Acetaminophen [Percocet 5-325 mg Tablet] 1 tab PO Q6H #12 tablet MDD 4 - Referrals Referrals: Amanuel Mcdonald MD [Staff Physician] - Elliot Ruiz MD [Staff Physician] - Cesar Baeza DO [Staff Physician] - - Patient Instructions Printed Discharge Instructions: DI for Elbow Fracture Additional Instructions: You have an elbow fracture as seen on both x-ray and CT Take the Percocet as directed for pain; do not drink or drive after taking this medication as it may make you sleepy You may take the zofran every 8 hours for nausea You may also take Ibuprofen 800mg every 6 hours to help with inflammation You have back spasms as well Take the flexeril at night before bed Please call orthopedics on Tuesday. Three referrals have been provided to you Return to the ER for worsening pain, fever, numbness, or if you have any changes in your symptoms - Post Discharge Activity Forms/Work/School Notes: Back to Work
[2018-09-09] MEDS ORDERED: KETOROLAC TROMETHAMINE 60 MG/2 ML VIAL IM ONE (20:40)
[2018-09-09] MEDS ORDERED: CYCLOBENZAPRINE HCL 10 MG TABLET (FP) PO ONE (20:40)
[2018-09-09] MEDS ORDERED: CYCLOBENZAPRINE HCL 10 MG TABLET (FP) ONE (20:47)
[2018-09-09] MEDS ORDERED: KETOROLAC TROMETHAMINE 60 MG/2 ML VIAL ONE (20:47)
[2018-09-09] MEDS ORDERED: ONDANSETRON *ODT* 4 MG TABLET SL ONE (22:53)
[2018-09-09] MEDS ORDERED: ONDANSETRON *ODT* 4 MG TABLET ONE (23:00)
--- NOTE | 2018-09-09 23:05 | PDOC ---
*Physical Exam - Vital Signs Last Vital Signs Temp Pulse Resp BP Pulse Ox 98.1 F 68 20 104/79 97 09/09/18 20:14 09/09/18 20:14 09/09/18 20:14 09/09/18 20:14 09/09/18 20:14 ED Treatment Course - Medications Given in the ED: ED Medications Discontinued Medications Generic Name Dose Route Start Last Admin Trade Name Freq PRN Reason Stop Dose Admin Cyclobenzaprine HCl 10 mg 09/09/18 20:40 09/09/18 20:53 Flexeril - PO 09/09/18 20:41 10 mg ONCE ONE Administration Ketorolac Tromethamine 60 mg 09/09/18 20:40 09/09/18 20:53 Toradol Injection - IM 09/09/18 20:41 60 mg ONCE ONE Administration Medical Decision Making - Medical Decision Making 09/09/18 23:03 Endorsed to me to review CT scan and disposition patient Patient Full Name: SHEELA KRUGER Patient Accession No: [id number] Patient : 1985 Reason for Exam: s/p fall Referring Physician: JENNIFER OSPINA Patient Name: SASKIA COKER THIS IS A PRELIMINARY REPORT FROM [facility] DATE OF SERVICE: 2018-09-09 21:29:45 IMAGES: [id number] EXAM: Exam: CT thoracolumbar spine without IV contrast. Clinical indication: Status post fall. Technique: Axial unenhanced CT images through the thoracic and lumbar spines were obtained followed by coronal and sagittal reformats. There are no prior studies available for comparison. Findings: The alignment of the thoracic spine is within normal limits. There is no evidence of thoracic spinal fracture. There is some minimal degenerative changes. The visualized portions of the ribs are intact. There is no spinal stenosis or neural foraminal narrowing throughout the thoracic spine. The visualized portions of the pulmonary parenchyma and mediastinal structures are unremarkable. There are 5 [id number] lumbar vertebra. The alignment of the lumbar vertebra are within normal limits. There is no evidence of lumbar vertebral body fracture. Visualized portions of the bony pelvis are intact. There is no evidence of spinal stenosis or neural foraminal narrowing throughout the lumbar spine. Visualized soft tissues of the abdomen are grossly unremarkable. Impression: Unremarkable CT of the thoracic and lumbar spines. One or more of the following dose reduction techniques were used: automated exposure control, adjustment of the mA and/or kV according to patient size, use of iterative reconstructive technique. THIS DOCUMENT HAS BEEN ELECTRONICALLY SIGNED Joaquim Liz MD 09/09/2018 21:51 SOCIAL SCIENTIST Ana. Please call [facility] Manager [phone] with questions. INTERPRETING RADIOLOGIST: Joaquim Liz MD Electronically Signed: Sep 09, 2018 10:53PM EDT 09/09/18 23:27 Patient Full Name: SHEELA KRUGER Patient Accession No: [id number] Patient : 1985 Reason for Exam: evaluate LT ELBOW FX Referring Physician: JENNIFER OSPINA Patient Name: SASKIA COKER THIS IS A PRELIMINARY REPORT FROM [facility] DATE OF SERVICE: 2018-09-09 21:44:10 IMAGES: [id number] EXAM: CT left upper extremity without IV contrast. Clinical indication: Evaluate left elbow fracture. There are no prior studies available for comparison. Technique: Axial unenhanced CT images from the proximal left humerus through to the mid left radius and ulna followed by coronal and sagittal reformats. Findings: The visualized portions of the distal left humerus are intact. There is no definite left elbow effusion. There is some slight overhang lipping on the radial head which is likely degenerative, but a very subtle undisplaced radial head fracture cannot be excluded. There is an olecranon fracture, but the fracture ends are well corticated consistent with a chronic nonunion. The remainder of the ulna is unremarkable. Impression: 1. Slight overhanging lip on the radial head which is likely degenerative, but a very subtle undisplaced radial head fracture cannot be excluded. 2. Chronic nonunion of olecranon fracture. One or more of the following dose reduction techniques were used: automated exposure control, adjustment of the mA and/or kV according to patient size, use of iterative reconstructive technique. THIS DOCUMENT HAS BEEN ELECTRONICALLY SIGNED Joaquim Liz MD 09/09/2018 22:18 SOCIAL SCIENTIST Ana. Please call [facility] [phone] with questions. INTERPRETING RADIOLOGIST: Joaquim Liz MD Electronically Signed: Sep 09, 2018 11:19PM EDT *DC/Admit/Observation/Transfer Diagnosis at time of Disposition: Elbow fracture Qualifiers: Encounter type: initial encounter Fracture type: closed Laterality: left Qualified Code(s): S42.402A - Unspecified fracture of lower end of left humerus , initial encounter for closed fracture Low back pain Qualifiers: Chronicity: acute Back pain laterality: left Sciatica presence: without sciatica Qualified Code(s): M54.5 - Low back pain - Discharge Dispostion Disposition: HOME Condition at time of disposition: Stable - Prescriptions Prescriptions: Cyclobenzaprine HCl [Flexeril -] 10 mg PO HS #10 tablet Ondansetron [Zofran Odt -] 4 mg SL TID #10 od.tablet Oxycodone HCl/Acetaminophen [Percocet 5-325 mg Tablet] 1 tab PO Q6H #12 tablet MDD 4 - Referrals Referrals: Elliot Ruiz MD [Staff Physician] - Cesar Baeza DO [Staff Physician] - Amanuel Mcdonald MD [Staff Physician] - - Patient Instructions Printed Discharge Instructions: DI for Elbow Fracture Additional Instructions: You have an elbow fracture as seen on both x-ray and CT Take the Percocet as directed for pain; do not drink or drive after taking this medication as it may make you sleepy You may take the zofran every 8 hours for nausea You may also take Ibuprofen 800mg every 6 hours to help with inflammation You have back spasms as well Take the flexeril at night before bed Please call orthopedics on Tuesday. Three referrals have been provided to you Return to the ER for worsening pain, fever, numbness, or if you have any changes in your symptoms - Post Discharge Activity Forms/Work/School Notes: Back to Work
== END 2018-09-10 00:35 | disposition home or self-care (01) ==
LOC: JER 19:57 → JERFT 19:57 → JER 09-10 00:35
DX: W10.8XXD Fall (on) (from) other stairs and steps, subsequent encounter (principal); S42.402D Unspecified fracture of lower end of left humerus, subsequent encounter for fracture with routine healing; Y93.89 Activity, other specified; Y92.89 Other specified places as the place of occurrence of the external cause; Y99.8 Other external cause status
CPT/HCPCS: 72128-TC; 72131-TC; 73200-TC-RT; 99281-25; Q0162

== ENCOUNTER 2019-01-03 09:38 | Day surgery (SDC) | payer OTHER ==
[2019-01-01 11:05] VITALS: BMI 33.7
[2019-01-03] MEDS ORDERED: ROPIVACAINE HCL 0.5% 30ML VIAL ONE (11:08)
[2019-01-03] MEDS ORDERED: MIDAZOLAM HCL 2 MG/2 ML SINGLE DOSE VIAL ONE ×2 (11:10)
[2019-01-03] MEDS ORDERED: BUPIVACAINE HCL/PF 0.5% (5 MG/ML) 30 ML VIAL IJ ONE (11:16)
[2019-01-03] MEDS ORDERED: SCOPOLAMINE HYDROBROMIDE 1 PATCH PATCH.TD72 ONE (11:16)
[2019-01-03] MEDS ORDERED: LIDOCAINE HCL 2% (20ML MULTI-DOSE VIAL) NR ONE (11:17)
[2019-01-03] MEDS ORDERED: ALBUTEROL SO4 8 GM HFA INHALER IH ONE (11:26)
[2019-01-03] MEDS ORDERED: MIDAZOLAM HCL 5 MG/1 ML Single Dose Vial ONE (11:27)
--- NOTE | 2019-01-03 11:50 | HP ---
Satellite [facility] - Chief Complaint Chief Complaint: left shoulder pain History of Present Illness: left shoulder impingement syndrome, labral tear History Source: Patient Limitations to Obtaining History: No Limitations - Past Medical History Allergies/Adverse Reactions: Allergies Allergy/AdvReac Type Severity Reaction Status Date / Time No Known Allergies Allergy Verified 01/03/19 10:36 Pulmonary: Yes: Asthma Gastrointestinal: Yes: GERD, Other (Fatty Liver Disease) ...LMP: 12/30/18 - Current Medications Current Medications: Home Medications Medication Instructions Recorded Montelukast Na [Singulair -] 10 mg PO HS 03/08/14 Albuterol Sulfate Inhaler - 1 - 2 inh PO DAILY PRN 03/09/14 [Ventolin HFA Inhaler -] metFORMIN HCL [Metformin HCl] 1,000 mg PO BID 12/05/17 Budesonide/Formeterol Fumarate 1 inh PO DAILY 01/01/19 [SYMBICORT 160/4.5mcg -] Satellite Physical Exam - Physical Examination Vital Signs: Vital Signs Period Temp Pulse Resp BP Sys/Stokes Pulse Ox Last 24 Hr 97.7 F-97.7 F 75-75 20-20 100-100/69-69 98 General Appearance: Well Nourished ENT: Clear Lung: Clear to auscultation Heart: Regular rate & rhythm Breasts: Soft Abdomen: Soft Extremities: No edema Satellite Impression/Plan - Impression/Plan Impression: left shoulder impingement syndrome, labral tear Operative Procedure: left shoulder arthroscopy, subacromial decompression, manipulation under anesthesia, mini open RTC repair Date to be Performed: 01/03/19
[2019-01-03] MEDS ORDERED: ceFAZolin SODIUM 1 GM VIAL IVPB ONE (12:42)
[2019-01-03] MEDS ORDERED: PROPOFOL 20 ML ONE ×2 (12:58→15:41)
--- NOTE | 2019-01-03 13:49 | OP ---
Operative Note - Note: Operative Date: 01/03/19 Pre-Operative Diagnosis: left shoulder pain, impingement syndrome, possible labral tear Operation: left shoulder arthroscopy, subacromial decompression, manipulation under anesthesia Post-Operative Diagnosis: Same as Pre-op Surgeon: Amanuel Mcdonald Analytical Chemist: Jabari Santa Anesthesiologist/PACKING SUPERVISOR: Cici Mendosa Anesthesia: General, Local Specimens Removed: shavings Estimated Blood Loss (mls): 100 Drains, Volume Out (mls): 0 Blood Volume Replaced (mls): 0 Fluid Volume Replaced (mls): 1,000 Operative Report Dictated: Yes
[2019-01-03] MEDS ORDERED: ONDANSETRON 4 MG/2 ML VIAL IVPUSH PRN (14:11)
[2019-01-03] MEDS ORDERED: PROMETHAZINE HCL 25 MG/1 ML VIAL IVPB PRN (14:11)
[2019-01-03] MEDS ORDERED: LACTATED RINGERS SOLUTION 1,000 ML IV SCH (14:15)
[2019-01-03] MEDS ORDERED: oxyCODONE HCL 5 MG TABLET ONE (15:58)
[2019-01-03] MEDS ORDERED: oxyCODONE HCL 5 MG TABLET PO PRN ×2 (17:12)
[2019-01-03 17:21] VITALS: TEMP 97.8
[2019-01-03 17:50] VITALS: BP 105/65; PULSE 100
--- NOTE | 2019-01-04 12:03 | OP ---
DATE OF OPERATION: 01/03/2019 PREOPERATIVE DIAGNOSES: Left shoulder stiffness, subacromial impingement, possible labral tear. POSTOPERATIVE DIAGNOSES: Left shoulder stiffness and subacromial impingement. PROCEDURE: Left shoulder arthroscopy, subacromial decompression, and manipulation under anesthesia. ANESTHESIA: A left interscalene block with LMA anesthesia, Cicijamar Lynn, REF-CRN. SURGEON: Yuliana Jacobson MD BREWERY TECHNICIAN: ELIOT Conner BLOOD LOSS: 100 mL. BLOOD GIVEN: None. SPECIMENS: Arthroscopic shavings. FLUID REPLACEMENT: Plasma-Lyte 1000 mL. INDICATION FOR PROCEDURE: This patient is a 33-year-old female with the preoperative diagnosis of recurrent left shoulder pain, subacromial impingement, stiffness, and a possible labral tear. After understanding the potential risks, complications, alternatives, and benefits of surgery versus nonsurgical treatment, the patient elected to undergo this procedure. The patient understands she may not get complete relief of her symptoms. DESCRIPTION OF PROCEDURE: The patient was brought to the operating room. Peripheral IV placed. IV sedation given. Two grams of IV Ancef were given. Left interscalene block was performed. LMA anesthesia was induced. She was placed in the beach chair position with ample padding throughout. Once she was in the beach chair position, I did a manipulation under anesthesia, and actually, I was able to stretch her and regain about 30 degrees of forward flexion and abduction. I did at 1 point feel a gentle stretch going into full forward flexion. The left upper extremity was prepped and draped in sterile fashion. The bony landmarks were marked out with a marking pen. A posterior portal was established, and a diagnostic arthroscopy was performed. Inside the patient's shoulder joint, everything looked pristine. There was no osteoarthritis of the glenohumeral head. The biceps tendon looked good. The biceps anchor looked good. The labrum looked absolutely perfect circumferentially. The patient had a normal undersurface of her rotator cuff. There was no synovitis. No blood. There were no signs of any acute trauma. The patient did have a drive-through sign, however, and I was able to easily push the arthroscope between the glenoid and the humerus, but there was absolutely no intraarticular pathology. I did a full inspection of the labrum, and it all looked perfect and intact. Next, our attention was turned to the subacromial space. The patient had a tremendous amount of inflammatory bursitis. A lateral portal was established under direct visualization using a spinal needle. Portal was made with a number-15 scalpel blade. A green cannula was introduced into this area, and an ArthroCare wand used to do a soft tissue bursectomy/extensive soft tissue debridement. The patient did have a tremendous amount of inflammatory bursitis. This revealed a moderate-size subacromial spur and a very small distal clavicular spur. Both were taken down with a 5.5-mm oval karlene and fine tuned in reverse and with a straight shaver. The bursa was removed from the top of the rotator cuff. The arm was put through a full range of motion. There were no points of impingement. The top of the rotator cuff was directly visualized and the arm put through a full range of motion. There were no points of impingement, compression, or tear. The top surface of the rotator cuff looked excellent. The rest of the examination was normal. The area was copiously irrigated and washed out. All instrumentation, debris, and excess saline removed. The arthroscopy portals closed with 3-0 nylon sutures. The area was then washed and dried, covered with Aquacel dressing. Patient was placed just into a sling. Total operative time was about 40 minutes. There were no complications during the case. The patient tolerated the procedure quite well and was brought to the ambulatory recovery room in stable condition. YULIANA JACOBSON M.D. [id number]
--- NOTE | 2019-01-05 18:33 | PATH ---
Surgical Pathology Report Patient Name: SASKIA COKER [facility]. Rec. #: [id number] /Age/Gender: 1985 (Age: 33) / F Account: [id number] Location: [facility] Taken: 01/03/2019 Received: 01/04/2019 Reported: 01/05/2019 Physicians: Amanuel Mcdonald M.D. Specimen(s) Received SHAVINGS Clinical History Left shoulder impingement syndrome Final Diagnosis LEFT SHOULDER SHAVINGS: FRAGMENTS OF FIBROSYNOVIAL TISSUE WITH FOCAL FIBROSIS. SEPARATE FRAGMENTS OF BONE AND SKELETAL MUSCLE WITH NO SIGNIFICANT PATHOLOGIC CHANGE. Electronically Signed Le Solorio M.D. Gross Description Received in formalin, labeled "left shoulder shavings," is a 4.0 x 4.0 x 0.5 cm. aggregate of green-yellow soft tissue fragments. A manufacturing sales representative portion is submitted in one cassette. /01/04/201901/04/2019
== END 2019-01-03 17:20 | disposition home or self-care (01) ==
LOC: JASU-SURG 09:38
PROVIDERS: ATTEND Orthopaedic Surgery
PROC: 0RNK4ZZ Release Left Shoulder Joint, Percutaneous Endoscopic Approach (ICD-10-PCS; principal; 2019-01-03 11:00)
DX: M75.42 Impingement syndrome of left shoulder (principal); M25.612 Stiffness of left shoulder, not elsewhere classified
CPT/HCPCS: 84703; 88304-TC; 94760

== ENCOUNTER 2019-01-12 14:38 | Emergency (ER) | payer OTHER ==
--- NOTE | 2019-01-12 14:56 | PDOC ---
Rapid Medical Evaluation Chief Complaint: Lightheaded Time Seen by Provider: 01/12/19 14:50 Medical Evaluation: Allergies Allergy/AdvReac Type Severity Reaction Status Date / Time No Known Allergies Allergy Verified 01/12/19 14:46 01/12/19 14:50 33 year old female c/o dizziness and weakness x 3 days, cold symptoms. seen at urgent care 5 days ago given Augmentin for sinusitis, patient reports that she stopped augmentin after taking it for 2 days when the dizziness started./ . s/p left shoulder surgery (01/03/2019) patient seen by ortho dr. Mcdonald today sent to the ER for evaluation . Patient reports negative flu in urgent care. A: dizziness likely viral illness P: Influenza swab cbc cmp ua urine Discharge Disposition - Diagnosis Dizziness and giddiness - Referrals - Patient Instructions - Post Discharge Activity
[2019-01-12 14:58] VITALS: TEMP 97.3; BMI 34.5
[2019-01-12 16:00] LABS: BASO % 0.5 % (0-2.0); EOS % 4.6 % (0-4.5); HEMOGLOBIN 12.9 GM/dL (10.7-15.3); LYMPH % 27.5 % (8-40); MCH 28.9 pg (25.7-33.7); MCHC 33.2 g/dl (32.0-36.0); MEAN CELL VOLUME 86.8 fl (80-96); MEAN PLT VOLUME 8.1 fl (7.5-11.1); MONO % 5.3 % (3.8-10.2); NEUT % 62.1 % (42.8-82.8); PLATELET COUNT 288 K/MM3 (134-434); RBC 4.49 M/mm3 (3.60-5.2); RDW 13.8 % (11.6-15.6); WHITE BLOOD COUNT 8.5 K/mm3 (4.0-10.0)
[2019-01-12 16:28] LABS: EPI CELLS 6.6 /HPF (0-5/HPF); HYALINE CASTS 9 /lpf (0-8); URINE APPEARANCE CLEAR; URINE BACTERIA 150.9 /hpf (NEGATIVE); URINE BILIRUBIN NEGATIVE (NEGATIVE); URINE COLOR YELLOW; URINE GLUCOSE (UA) NEGATIVE (NEGATIVE); URINE KETONE TRACE (NEGATIVE); URINE LEUK ESTERASE 1+ (NEGATIVE); URINE NITRITE NEGATIVE (NEGATIVE); URINE PROTEIN NEGATIVE (NEGATIVE); URINE UROBILINOGEN 0.2 mg/dL (0.2-1.0); URINE WBC 10 /hpf (0-5)
[2019-01-12 16:29] LABS: ALBUMIN 3.5 g/dl (3.4-5.0); BILIRUBIN,TOTAL 0.2 mg/dL (0.2-1); BLOOD UREA NITROGEN 10.2 mg/dL (7-18); CALCIUM 8.7 mg/dL (8.5-10.1); CREATININE 0.8 mg/dL (0.55-1.3); POTASSIUM 3.7 mmol/L (3.5-5.1); TOT PROT 6.8 g/dl (6.4-8.2)
[2019-01-12] MEDS ORDERED: ACETAMINOPHEN 1000 MG/100 ML VIAL (NON FORMULARY) IVPB ONE (16:30)
[2019-01-12] MEDS ORDERED: SODIUM CHLORIDE 1,000 ML IV STA (16:30)
[2019-01-12] MEDS ORDERED: PSEUDOEPHEDRINE HCL 60 MG TABLET PO ONE (16:45)
[2019-01-12] MEDS ORDERED: ACETAMINOPHEN INJECTION 100 ML IVPB ONE (16:48)
[2019-01-12] MEDS ORDERED: PSEUDOEPHEDRINE HCL 60 MG TABLET ONE (16:48)
[2019-01-12 18:16] LABS: URINE RBC 3.7 /hpf (0-4)
--- NOTE | 2019-01-12 18:44 | PDOC ---
History of Present Illness - General Chief Complaint: Lightheaded Stated Complaint: WEAKNESS Time Seen by Provider: 01/12/19 14:50 History Source: Patient Exam Limitations: No Limitations Past History - Past Medical History Allergies/Adverse Reactions: Allergies Allergy/AdvReac Type Severity Reaction Status Date / Time No Known Allergies Allergy Verified 01/12/19 14:46 Home Medications: Ambulatory Orders Montelukast Na [Singulair -] 10 mg PO HS 03/08/14 Albuterol Sulfate Inhaler - [Ventolin HFA Inhaler -] 1 - 2 inh PO DAILY PRN 12/12 metFORMIN HCL [Metformin HCl] 1,000 mg PO BID 12/05/17 Budesonide/Formeterol Fumarate [SYMBICORT 160/4.5mcg -] 1 inh PO DAILY 01/01/19 Hydrocodone/Acetaminophen [Hydrocodone-Acetamin 5-325 mg] 1 each PO Q6H #20 tablet MDD 4 01/03/19 Anemia: No Asthma: Yes Cancer: No Cardiac Disorders: No CVA: No COPD: No CHF: No Dementia: No Diabetes: No GI Disorders: Yes (GASTRITIS) Disorders: No HTN: No Hypercholesterolemia: No Liver Disease: No Seizures: No Thyroid Disease: No - Reproductive History (#): 4 Para: 1 Ectopic : Yes (X2) - Immunization History Td Vaccination: Yes TDAP Vaccination: Yes Immunization Up to Date: Yes - Psycho Social/Smoking Cessation Hx Smoking History: Never smoked Have you smoked in the past 12 months: No Hx Alcohol Use: No Drug/Substance Use Hx: No Substance Use Type: None Hx Substance Use Treatment: No *Physical Exam - Vital Signs Last Vital Signs Temp Pulse Resp BP Pulse Ox 97.3 F L 95 H 18 132/71 96 01/12/19 14:47 01/12/19 14:47 01/12/19 14:47 01/12/19 14:47 01/12/19 14:47 - Physical Exam General Appearance: No: Apparent Distress HEENT: positive: Normal Voice, Pharynx Normal, Nasal Congestion. negative: Muffled/Hoarse voice, Rhinorrhea, Sinus Tenderness Respiratory/Chest: positive: Lungs Clear, Normal Breath Sounds. negative: Respiratory Distress Cardiovascular: positive: Regular Rhythm, Regular Rate, S1, S2. negative: Murmur Gastrointestinal/Abdominal: positive: Normal Bowel Sounds, Soft. negative: Tender, Distended, Guarding, Rebound Musculoskeletal: negative: CVA Tenderness Integumentary: positive: Normal Color Neurologic: positive: Alert, Normal Mood/Affect ED Treatment Course - LABORATORY CBC & Chemistry Diagram: 01/12/19 15:38 01/12/19 15:38 - ADDITIONAL ORDERS Additional order review: Laboratory Results 01/12/19 01/12/19 11 15:38 15:35 15:35 Sodium 140 Potassium 3.7 Chloride 109 H Carbon Dioxide 27 Anion Gap 5 L BUN 10.2 Creatinine 0.8 Est GFR (CKD-EPI)AfAm 113.86 Est GFR (CKD-EPI)NonAf 98.24 Random Glucose 100 Calcium 8.7 Total Bilirubin 0.2 AST 12 L ALT 29 Alkaline Phosphatase 86 Total Protein 6.8 Albumin 3.5 Urine Color Yellow Urine Appearance Clear Urine pH 5.0 Ur Specific [place] 1.026 Urine Protein Negative Urine Glucose (UA) Negative Urine Ketones Trace H Urine Blood Negative Urine Nitrite Negative Urine Bilirubin Negative Urine Urobilinogen 0.2 Ur Leukocyte Esterase 1+ H Urine WBC (Auto) 10 Urine RBC (Auto) 3.7 Urine Casts (Auto) 9 U Epithel Cells (Auto) 6.6 Urine Bacteria (Auto) 150.9 Urine HCG, Qual Negative 01/12/19 15:38 RBC 4.49 MCV 86.8 MCHC 33.2 RDW 13.8 MPV 8.1 Neutrophils % 62.1 D Lymphocytes % 27.5 D Monocytes % 5.3 Eosinophils % 4.6 H Basophils % 0.5 - Medications Given in the ED: ED Medications Discontinued Medications Generic Name Dose Route Start Last Admin Trade Name Eve PRN Reason Stop Dose Admin Acetaminophen 1,000 mg 01/12/19 16:30 01/12/19 16:55 Ofirmev Injection - IVPB 01/12/19 16:31 1,000 mg ONCE ONE Administration Sodium Chloride 1,000 mls @ 1,000 mls/hr 01/12/19 16:30 01/12/19 16:55 Normal Saline - IV 01/12/19 17:29 1,000 mls/hr ASDIR STA Administration Pseudoephedrine HCl 60 mg 01/12/19 16:45 01/12/19 16:55 Sudafed - PO 01/12/19 16:46 60 mg ONCE ONE Administration Medical Decision Making - Medical Decision Making 33 y/o F hx of asthma presents with URI sxs from the day after her L shoulder surgery done on 01/03 (done for labral tear by Dr. Mcdonald). States had congestion, cough, rhinorrhea and some throat pain. Was taking theraflu but not feeling better, so went to 4 days ago, was tested negative for flu and prescribed Nasonex and Augmentin for sinusitis. Initially felt better, but 2 days ago, started feeling more lightheaded and weak. Also mentions having slight loose stools since surgery. Patient stopped the abx 2 days ago and also stopped the Percocet for pain. Denies fever, sob, cp, vomiting, urinary symptoms. Patient was seen by Dr. Mcdonald in office today and advised to come to ED; he wrote in note that sxs are not related to surgery. Labs reviewed and unremarkable Flu negative Patient given IVF, Tylenol and sudafed and feeling much better Patient tolerating PO Likely viral syndrome Stable for d/c 01/12/19 18:39 Discharge - Discharge Information Problems reviewed: Yes Clinical Impression/Diagnosis: Viral syndrome Condition: Improved Disposition: HOME - Admission No - Additional Discharge Information Prescription Drug Monitoring Program (I-STOP) results: I-STOP not reviewed - Follow up/Referral Referrals: Amanuel Mcdonald MD [Primary Care Provider] - 2 Days - Patient Discharge Instructions Patient Printed Discharge Instructions: DI for Viral Syndrome Additional Instructions: Thank you for choosing [facility]. It was a pleasure taking care of you. Your labs were unremarkable You were tested negative for flu Drink at least 2-3L of water daily Continue using the Nasonex You may also use Sudafed as needed for nasal congestion Follow-up with your doctor in 2 days Return to the Emergency Department if your symptoms worsen or persist or have other concerning symptoms. - Post Discharge Activity
[2019-01-12 20:10] VITALS: BP 111/77; PULSE 92
== END 2019-01-12 20:11 | disposition home or self-care (01) ==
LOC: JER 14:38
PROC: 3E033NZ Introduction of Analgesics, Hypnotics, Sedatives into Peripheral Vein, Percutaneous Approach (ICD-10-PCS; principal; 2019-01-12)
DX: B34.9 Viral infection, unspecified (principal); J01.90 Acute sinusitis, unspecified; Z98.890 Other specified postprocedural states
CPT/HCPCS: 36415; 80053; 81003; 84703; 85025; 87804; 99282-25; J0131; J7030

== ENCOUNTER 2019-03-22 14:10 | Inpatient (IN) | payer OTHER ==
[2019-03-22] MEDS ORDERED: methylPREDNISolone NA SUCC 125 MG/2 ML VIAL IVPUSH ONE (14:19)
[2019-03-22] MEDS ORDERED: MAGNESIUM SULF 50% (8.12 MEQ/2 ML-1 GM VIAL) IVPB ONE (14:19)
[2019-03-22] MEDS ORDERED: SODIUM CHLORIDE 1,000 ML IV STA (14:19)
--- NOTE | 2019-03-22 14:19 | PDOC ---
Rapid Medical Evaluation Time Seen by Provider: 03/22/19 14:17 Medical Evaluation: Allergies Allergy/AdvReac Type Severity Reaction Status Date / Time No Known Allergies Allergy Verified 01/12/19 14:46 03/22/19 14:17 CC: SOB PE: audible wheezes Orders: nebs, methylprednisone, IVF Patient will proceed to ER for complete evaluation. Discharge Disposition - Diagnosis Asthma - Referrals - Patient Instructions - Post Discharge Activity
[2019-03-22] MEDS ORDERED: methylPREDNISolone NA SUCC 125 MG/2 ML VIAL ONE (14:29)
[2019-03-22] MEDS ORDERED: MAGNESIUM SULF 50% (8.12 MEQ/2 ML-1 GM VIAL) ONE (14:29)
[2019-03-22] MEDS ORDERED: ALBUTEROL SO4 2.5/IPRATROPIUM 0.5 INH SOL 3 ML VIAL.NEB. NEB ONE ×3 (14:29→20:47)
[2019-03-22] MEDS: ALBUTEROL SO4 2.5/IPRATROPIUM 0.5 INH SOL 3 ML VIAL.NEB. NEB SCH ×2 (14:50→15:48)
[2019-03-22] MEDS ORDERED: IBUPROFEN 600 MG TABLET (FP) PO ONE ×2 (15:19→15:49)
--- NOTE | 2019-03-22 15:21 | PDOC ---
History of Present Illness <Linh Williamson - Last Filed: 03/22/19 17:50> - General History Source: Patient Exam Limitations: No Limitations - History of Present Illness Initial Comments: 03/22/19 15:37 33-year-old female presents to ED with complaints of worsening shortness of breath coughing and wheezing for the past day. Patient states has been using her inhaler with no improvement. Patient states went to urgent care clinic where she was given 2 treatments with minimal improvement. Patient was sent here to the ED for further management. Patient denies chest pain but states generalized rib pains bilaterally. Patient denies fever, recent travel, or recent illness. Patient denies smoking history. No intubations or hospitalizations r/t asthma exac. Is this a multiple visit Asthma Patient?: No Timing/Duration: reports: getting worse Severity: reports: moderate Possible Cause: Yes: occasional episodes Modifying Factors: improves with: albuterol inhaler, coughing Associated Symptoms: reports: cough, shortness of breath, wheezing <Tawnya Uribe - Last Filed: 03/23/19 13:29> - General Chief Complaint: Asthma Stated Complaint: SENT BY PCP/ASTHMA Time Seen by Provider: 03/22/19 14:17 Past History <Linh Williamson - Last Filed: 03/22/19 17:50> - Travel Traveled outside of the country in the last 30 days: No - Past Medical History Anemia: No Asthma: Yes Cancer: No Cardiac Disorders: No CVA: No COPD: No CHF: No Dementia: No Diabetes: No GI Disorders: Yes (GASTRITIS) Disorders: No HTN: No Hypercholesterolemia: No Liver Disease: No Seizures: No Thyroid Disease: No - Reproductive History (#): 4 Para: 1 Ectopic : Yes (X2) - Immunization History Td Vaccination: Yes TDAP Vaccination: Yes Immunization Up to Date: Yes - Psycho Social/Smoking Cessation Hx Smoking History: Never smoked Have you smoked in the past 12 months: No Information on smoking cessation initiated: No Hx Alcohol Use: No Drug/Substance Use Hx: No Substance Use Type: None Hx Substance Use Treatment: No Patient Lives Alone: No Lives with/in: spouse/SO <Tawnya Uribe - Last Filed: 03/23/19 13:29> - Past Medical History Allergies/Adverse Reactions: Allergies Allergy/AdvReac Type Severity Reaction Status Date / Time No Known Allergies Allergy Verified 03/22/19 14:20 Home Medications: Ambulatory Orders Montelukast Na [Singulair -] 10 mg PO HS 03/08/14 Albuterol Sulfate Inhaler - [Ventolin HFA Inhaler -] 1 - 2 inh PO DAILY PRN 12/12 metFORMIN HCL [Metformin HCl] 1,000 mg PO BID 12/05/17 Budesonide/Formeterol Fumarate [SYMBICORT 160/4.5mcg -] 1 inh PO DAILY 01/01/19 Hydrocodone/Acetaminophen [Hydrocodone-Acetamin 5-325 mg] 1 each PO Q6H #20 tablet MDD 4 01/03/19 Review of Systems - Review of Systems Able to Perform ROS?: Yes Constitutional: No: Symptoms Reported HEENTM: No: Symptoms Reported Respiratory: Yes: Cough, Shortness of Breath, Wheezing Cardiac (ROS): No: Symptoms Reported Musculoskeletal: Yes: Joint Pain, Muscle Pain Integumentary: No: Symptoms Reported Neurological: No: Symptoms reported <Tawnya Uribe - Last Filed: 03/23/19 13:29> *Physical Exam - Vital Signs Last Vital Signs Temp Pulse Resp BP Pulse Ox 97.4 F L 113 H 22 H 116/77 98 03/22/19 14:17 03/22/19 14:17 03/22/19 14:17 03/22/19 14:17 03/22/19 14:20 <Linh Williamson - Last Filed: 03/22/19 17:50> - Vital Signs Last Vital Signs Temp Pulse Resp BP Pulse Ox 97.4 F L 113 H 22 H 116/77 98 03/22/19 14:17 03/22/19 14:17 03/22/19 14:17 03/22/19 14:17 03/22/19 14:20 - Physical Exam General Appearance: Yes: Nourished, Appropriately Dressed. No: Apparent Distress HEENT: positive: TMs Normal, Pharynx Normal. negative: Pale Conjunctivae Neck: positive: Normal Thyroid Respiratory/Chest: positive: Accessory Muscle Use ( mild intercostal), Wheezing (Expiratory bilaterally) Cardiovascular: positive: Regular Rhythm, Tachycardia. negative: Murmur Gastrointestinal/Abdominal: positive: Soft. negative: Tenderness Musculoskeletal: positive: Other (Thoracic paraspinous bilaterally) Extremity: positive: Normal Inspection Integumentary: positive: Normal Color, Warm, Moist Neurologic: positive: Motor Strength 5/5 (Ambulatory) <Tawnya Uribe - Last Filed: 03/23/19 13:29> ED Treatment Course - LABORATORY CBC & Chemistry Diagram: 03/22/19 17:30 03/22/19 17:30 - Medications Given in the ED: ED Medications Discontinued Medications Generic Name Dose Route Start Last Admin Trade Name Freq PRN Reason Stop Dose Admin Albuterol/Ipratropium 1 amp 03/22/19 14:30 03/22/19 15:48 Duoneb - NEB 03/22/19 15:16 1 amp Q15M GILDA Administration Albuterol/Ipratropium 1 amp 03/22/19 15:56 03/22/19 15:58 Duoneb - NEB 03/22/19 15:57 1 amp ONCE ONE Administration Sodium Chloride 1,000 mls @ 1,000 mls/hr 03/22/19 14:19 03/22/19 14:50 Normal Saline - IV 03/22/19 15:18 1,000 mls/hr ASDIR STA Administration Ibuprofen 600 mg 03/22/19 15:19 03/22/19 15:58 Motrin - PO 03/22/19 15:20 Not Given ONCE ONE Ketorolac Tromethamine 30 mg 03/22/19 15:26 03/22/19 15:58 Toradol Injection - IVPUSH 03/22/19 15:27 30 mg ONCE ONE Administration Magnesium Sulfate 2 gm 03/22/19 14:19 03/22/19 14:50 Magnesium Sulfate IVPB 03/22/19 14:20 2 gm ONCE ONE Administration Methylprednisolone Sodium Succinate 125 mg 03/22/19 14:19 03/22/19 14:50 Solu-Medrol - IVPUSH 03/22/19 14:20 125 mg ONCE ONE Administration <Linh Williamson - Last Filed: 03/22/19 17:50> - LABORATORY CBC & Chemistry Diagram: 03/23/19 09:20 03/23/19 09:20 - Medications Given in the ED: ED Medications Discontinued Medications Generic Name Dose Route Start Last Admin Trade Name Freq PRN Reason Stop Dose Admin Albuterol/Ipratropium 1 amp 03/22/19 14:30 03/22/19 14:50 Duoneb - NEB 03/22/19 15:16 1 amp Q15M GILDA Administration Sodium Chloride 1,000 mls @ 1,000 mls/hr 03/22/19 14:19 03/22/19 14:50 Normal Saline - IV 03/22/19 15:18 1,000 mls/hr ASDIR STA Administration Magnesium Sulfate 2 gm 03/22/19 14:19 03/22/19 14:50 Magnesium Sulfate IVPB 03/22/19 14:20 2 gm ONCE ONE Administration Methylprednisolone Sodium Succinate 125 mg 03/22/19 14:19 03/22/19 14:50 Solu-Medrol - IVPUSH 03/22/19 14:20 125 mg ONCE ONE Administration <Tawnya Uribe - Last Filed: 03/23/19 13:29> Medical Decision Making - Medical Decision Making The patient was seen and evaluated in conjunction with midlevel provider under my direct supervision, ancillary studies were reviewed. I agree with the plan as outlined with KIMBERLEY Uribe. HPI, workup/dispo as outlined. VS reviewed, tachy likely from asthma exacerbation EKG sinus tachycardia at 124 bpm, otherwise wnl admitted for asthma flare persistent tachy, continued medical management.. 03/22/19 17:50 <Linh Williamson - Last Filed: 03/22/19 17:50> - Medical Decision Making 03/22/19 15:08 Chief complaint: Worsening cough shortness of breath and wheezing over the past day unrelieved with albuterol inhaler. Patient given 2 treatments in urgent care clinic with minimal improvement so sent here for further management. Patient has no other complaints except for bilateral rib pain Exam: Patient with expiratory wheeze bilaterally tachycardic and using intercostal muscles bilaterally Plan: Patient ordered for IV fluids, steroids treatments and chest x-ray from E. Patient ordered for Toradol for discomfort 03/22/19 15:28 CXR - for acute pathology. pt with noted diffuse exp wheezing. speaking full sentences and amb throughout the ED. Ordered and administered an addit douneb. Will endorse for re evaluation <Tawnya Uribe - Last Filed: 03/23/19 13:29> Discharge - Discharge Information Problems reviewed: Yes - Admission Yes <Linh Williamson - Last Filed: 03/22/19 17:50> <Tawnya Uribe - Last Filed: 03/23/19 13:29> - Discharge Information Clinical Impression/Diagnosis: Asthma Qualifiers: Asthma severity: moderate Asthma persistence: unspecified Asthma complication type: with acute exacerbation Qualified Code(s): J45.901 - Unspecified asthma with (acute) exacerbation Condition: Guarded
[2019-03-22] MEDS ORDERED: KETOROLAC TROMETHAMINE 60 MG/2 ML VIAL IM ONE (15:22)
[2019-03-22] MEDS ORDERED: KETOROLAC TROMETHAMINE 30 MG/1 ML VIAL IVPUSH ONE (15:26)
[2019-03-22] MEDS ORDERED: IBUPROFEN 400 MG TABLET (FP) PO ONE (15:39)
[2019-03-22] MEDS ORDERED: KETOROLAC TROMETHAMINE 30 MG/1 ML VIAL ONE (15:49)
--- NOTE | 2019-03-22 17:20 | PDOC ---
*Physical Exam - Vital Signs Last Vital Signs Temp Pulse Resp BP Pulse Ox 97.4 F L 113 H 22 H 116/77 98 03/22/19 14:17 03/22/19 14:17 03/22/19 14:17 03/22/19 14:17 03/22/19 14:20 <Shayla Marina - Last Filed: 03/22/19 17:21> - Vital Signs Last Vital Signs Temp Pulse Resp BP Pulse Ox 98 F 84 20 112/74 95 03/25/19 06:08 03/25/19 06:08 03/25/19 06:08 03/25/19 06:08 03/24/19 21:00 <Linh Williamson - Last Filed: 03/25/19 14:16> ED Treatment Course - Medications Given in the ED: ED Medications Discontinued Medications Generic Name Dose Route Start Last Admin Trade Name Freq PRN Reason Stop Dose Admin Albuterol/Ipratropium 1 amp 03/22/19 14:30 03/22/19 15:48 Duoneb - NEB 03/22/19 15:16 1 amp Q15M GILDA Administration Albuterol/Ipratropium 1 amp 03/22/19 15:56 03/22/19 15:58 Duoneb - NEB 03/22/19 15:57 1 amp ONCE ONE Administration Sodium Chloride 1,000 mls @ 1,000 mls/hr 03/22/19 14:19 03/22/19 14:50 Normal Saline - IV 03/22/19 15:18 1,000 mls/hr ASDIR STA Administration Ibuprofen 600 mg 03/22/19 15:19 03/22/19 15:58 Motrin - PO 03/22/19 15:20 Not Given ONCE ONE Ketorolac Tromethamine 30 mg 03/22/19 15:26 03/22/19 15:58 Toradol Injection - IVPUSH 03/22/19 15:27 30 mg ONCE ONE Administration Magnesium Sulfate 2 gm 03/22/19 14:19 03/22/19 14:50 Magnesium Sulfate IVPB 03/22/19 14:20 2 gm ONCE ONE Administration Methylprednisolone Sodium Succinate 125 mg 03/22/19 14:19 03/22/19 14:50 Solu-Medrol - IVPUSH 03/22/19 14:20 125 mg ONCE ONE Administration <Shayla Marina - Last Filed: 03/22/19 17:21> - LABORATORY CBC & Chemistry Diagram: 03/25/19 08:25 03/25/19 08:25 - Medications Given in the ED: ED Medications Discontinued Medications Generic Name Dose Route Start Last Admin Trade Name Freq PRN Reason Stop Dose Admin Acetaminophen 1,000 mg 03/22/19 23:34 03/22/19 23:43 Ofirmev Injection - IVPB 03/22/19 23:35 1,000 mg ONCE ONE Administration Albuterol/Ipratropium 1 amp 03/22/19 14:30 03/22/19 15:48 Duoneb - NEB 03/22/19 15:16 1 amp Q15M GILDA Administration Albuterol/Ipratropium 1 amp 03/22/19 15:56 03/22/19 15:58 Duoneb - NEB 03/22/19 15:57 1 amp ONCE ONE Administration Albuterol/Ipratropium 1 amp 03/22/19 20:43 03/23/19 03:20 Duoneb - NEB 1 amp Q4H PRN Administration SHORTNESS OF BREATH Enoxaparin Sodium 40 mg 03/23/19 10:00 03/23/19 09:59 Lovenox - SQ Not Given DAILY [facility] Sodium Chloride 1,000 mls @ 1,000 mls/hr 03/22/19 14:19 03/22/19 14:50 Normal Saline - IV 03/22/19 15:18 1,000 mls/hr ASDIR STA Administration Ibuprofen 600 mg 03/22/19 15:19 03/22/19 15:58 Motrin - PO 03/22/19 15:20 Not Given ONCE ONE Ipratropium [place] 1 amp 03/22/19 20:43 03/22/19 22:31 Atrovent 0.02% Nebulizer - NEB 03/22/19 20:44 1 amp ONCE ONE Administration Ipratropium [place] 1 amp 03/23/19 08:00 03/23/19 07:51 Atrovent 0.02% Nebulizer - NEB 1 amp RQID GILDA Administration Ipratropium [place] 1 amp 03/23/19 09:15 03/23/19 10:43 Atrovent 0.02% Nebulizer - NEB Not Given Q3H GILDA Ketorolac Tromethamine 30 mg 03/22/19 15:26 03/22/19 15:58 Toradol Injection - IVPUSH 03/22/19 15:27 30 mg ONCE ONE Administration Magnesium Sulfate 2 gm 03/22/19 14:19 03/22/19 14:50 Magnesium Sulfate IVPB 03/22/19 14:20 2 gm ONCE ONE Administration Methylprednisolone Sodium Succinate 125 mg 03/22/19 14:19 03/22/19 14:50 Solu-Medrol - IVPUSH 03/22/19 14:20 125 mg ONCE ONE Administration Methylprednisolone Sodium Succinate 40 mg 03/22/19 21:00 03/24/19 10:51 Solu-Medrol - IVPUSH 40 mg Q6H-IV GILDA Administration <Linh Williamson - Last Filed: 03/25/19 14:16> Medical Decision Making - Medical Decision Making Patient signed out to me by DATA LEAD Tawnya Urieb Patient has received duonebs x4, solumedrol, Mg sulfate and Toradol (given for pain) Patient still with tightness despite all the meds given On exam, still with diffuse tightness Patient in no respiratory distress Will be admitted for further management 03/22/19 17:20 \ <Shayla Marina - Last Filed: 03/22/19 17:21> - Medical Decision Making The patient was seen and evaluated in conjunction with midlevel provider under my direct supervision, ancillary studies were reviewed. I agree with the plan as outlined ELIOT Marina. HPI, workup/dispo as outlined. VS reviewed, as documented tachy and tachypneic no fever treating as asthma exacerbation, refractory to tx, admission 03/25/19 14:16 03/25/19 14:16 03/25/19 14:16 <Linh Williamson - Last Filed: 03/25/19 14:16> Discharge - Discharge Information Problems reviewed: Yes - Admission Yes <Shayla Marina - Last Filed: 03/22/19 17:21> <Linh Williamson - Last Filed: 03/25/19 14:16> - Discharge Information Clinical Impression/Diagnosis: Asthma Qualifiers: Asthma severity: moderate Asthma persistence: unspecified Asthma complication type: with acute exacerbation Qualified Code(s): J45.901 - Unspecified asthma with (acute) exacerbation Condition: Guarded
[2019-03-22 17:59] LABS: BASO % 0.3 % (0-2.0); EOS % 0.7 % (0-4.5); HEMATOCRIT 38.5 % (32.4-45.2); HEMOGLOBIN 12.7 GM/dL (10.7-15.3); MCH 28.2 pg (25.7-33.7); MCHC 32.9 g/dl (32.0-36.0); MEAN CELL VOLUME 85.6 fl (80-96); MEAN PLT VOLUME 8.2 fl (7.5-11.1); MONO % 1.1 % (3.8-10.2); NEUT % 91.9 % (42.8-82.8); PLATELET COUNT 306 K/MM3 (134-434); RDW 13.7 % (11.6-15.6); WHITE BLOOD COUNT 12.4 K/mm3 (4.0-10.0)
[2019-03-22 18:18] LABS: ALBUMIN 3.9 g/dl (3.4-5.0); ALK PHOS 98 U/L (45-117); ANION GAP 13 MMOL/L (8-16); BILIRUBIN,TOTAL 0.2 mg/dL (0.2-1); BLOOD UREA NITROGEN 6.8 mg/dL (7-18); CALCIUM 8.5 mg/dL (8.5-10.1); CHLORIDE 106 mmol/L (98-107); CO2 21 mmol/L (21-32); CREATININE 0.9 mg/dL (0.55-1.3); GLUCOSE,RANDOM 146 mg/dL (74-106); POTASSIUM 3.6 mmol/L (3.5-5.1); SGOT/AST 22 U/L (15-37); SGPT/ALT 41 U/L (13-61); SODIUM 140 mmol/L (136-145); TOT PROT 7.3 g/dl (6.4-8.2)
--- NOTE | 2019-03-22 20:36 | HP ---
CHIEF COMPLAINT: 33 F h/o moderate persistent asthma, L shoulder impingement, seasonal allergies , presents with SOB, wheezing, productive mucus since Tuesday. Patient endorses recently being exposed to a dog at a friends house on Tuesday and noticed her asthma acted up after. Her daughter also suffered from URI during this time where she thinks she was exposed. Patient tried 1/2 round of nebs at home (used her daughters nebulizer mahcine) without improvement so went to urgent care where they told her to go to ED d/t LORI. In ED pt. received round of nebs/Mg/IV steroids w/ some improvement of SOB, but then pt. received NSAID (Toradol/ Ibuprofen) for intercoastal rib pain and her wheezing persisted. Patient sitting in chair in ED, speaking in full sentences, not showing signs of respiratory compromise. Recent Travel: Denies PAST MEDICAL HISTORY: as above PAST SURGICAL HISTORY: L shoulder impingement release Social History: denies Smoking:denies Alcohol:denies Drugs: denies Allergies No Known Allergies Allergy (Verified 03/22/19 14:20) HOME MEDICATIONS: Home Medications Medication Instructions Recorded Montelukast Na [Singulair -] 10 mg PO HS 03/08/14 Albuterol Sulfate Inhaler - 1 - 2 inh PO DAILY PRN 03/09/14 [Ventolin HFA Inhaler -] metFORMIN HCL [Metformin HCl] 1,000 mg PO BID 12/05/17 Budesonide/Formeterol Fumarate 1 inh PO DAILY 01/01/19 [SYMBICORT 160/4.5mcg -] Hydrocodone/Acetaminophen 1 each PO Q6H #20 tablet MDD 4 01/03/19 [Hydrocodone-Acetamin 5-325 mg] REVIEW OF SYSTEMS CONSTITUTIONAL: Absent: fever, chills, diaphoresis, generalized weakness, malaise, loss of appetite, weight change HEENT: Absent: rhinorrhea, nasal congestion, throat pain, throat swelling, difficulty swallowing, mouth swelling, ear pain, eye pain, visual changes CARDIOVASCULAR: Absent: chest pain, syncope, palpitations, irregular heart rate, lightheadedness , peripheral edema RESPIRATORY: wheezing, SOB, cough GASTROINTESTINAL: Absent: abdominal pain, abdominal distension, nausea, vomiting, diarrhea, constipation, melena, hematochezia GENITOURINARY: Absent: dysuria, frequency, urgency, hesitancy, hematuria, flank pain, genital pain MUSCULOSKELETAL: Absent: myalgia, arthralgia, joint swelling, back pain, neck pain SKIN: Absent: rash, itching, pallor HEMATOLOGIC/IMMUNOLOGIC: Absent: easy bleeding, easy bruising, lymphadenopathy, frequent infections ENDOCRINE: Absent: unexplained weight gain, unexplained weight loss, heat intolerance, cold intolerance NEUROLOGIC: Absent: headache, focal weakness or paresthesias, dizziness, unsteady gait, seizure, mental status changes, bladder or bowel incontinence PSYCHIATRIC: Absent: anxiety, depression, suicidal or homicidal ideation, hallucinations. PHYSICAL EXAMINATION Vital Signs - 24 hr 03/22/19 03/22/19 03/22/19 14:17 14:20 18:55 Temperature 97.4 F L Pulse Rate 113 H Pulse Rate [ 128 H Right Radial] Respiratory 22 H 20 Rate Blood Pressure 116/77 Blood Pressure 106/61 [Left Arm] O2 Sat by Pulse 97 97 95 Oximetry (%) 03/22/19 19:23 Temperature Pulse Rate Pulse Rate [ 120 H Right Radial] Respiratory 22 H Rate Blood Pressure Blood Pressure 112/60 [Left Arm] O2 Sat by Pulse 99 Oximetry (%) GENERAL: Awake, alert, and fully oriented, in no acute distress. HEAD: Normal with no signs of trauma. EYES: Pupils equal, round and reactive to light, extraocular movements intact, sclera anicteric, conjunctiva clear. No lid lag. EARS, NOSE, THROAT: Ears normal, nares patent, oropharynx clear without exudates. Moist mucous membranes. NECK: Normal range of motion, supple without lymphadenopathy, JVD, or masses. LUNGS: inspiratory and expiratory scattered wheezing, air movement in both lungs present , no increased WOB HEART: Sinus tachycardia, normal S1 and S2 without murmur, rub or gallop. ABDOMEN: Soft, nontender, not distended, normoactive bowel sounds, no guarding, no rebound, no masses. No hepatomegaly or splenomegaly. MUSCULOSKELETAL: Normal range of motion at all joints. No bony deformities or tenderness. No CVA tenderness. UPPER EXTREMITIES: 2+ pulses, warm, well-perfused. No cyanosis. No clubbing. No peripheral edema. LOWER EXTREMITIES: 2+ pulses, warm, well-perfused. No calf tenderness. No peripheral edema. NEUROLOGICAL: Cranial nerves II-XII intact. Normal speech. Normal gait. PSYCHIATRIC: Cooperative. Good eye contact. Appropriate mood and affect. SKIN: Warm, dry, normal turgor, no rashes or lesions noted, normal capillary refill. Laboratory Results - last 24 hr 03/22/19 03/22/19 03/22/19 15:20 17:12 17:30 WBC 12.4 H RBC 4.50 Hgb 12.7 Hct 38.5 MCV 85.6 MCH 28.2 MCHC 32.9 RDW 13.7 Plt Count 306 MPV 8.2 Absolute Neuts (auto) 11.4 H Neutrophils % 91.9 H D Neutrophils % (Manual) 96.1 H Band Neutrophils % 0.0 Lymphocytes % 6.0 L D Lymphocytes % (Manual) 2.9 L Monocytes % 1.1 L Monocytes % (Manual) 0 L Eosinophils % 0.7 D Eosinophils % (Manual) 1.0 Basophils % 0.3 Basophils % (Manual) 0.0 Myelocytes % (Man) 0 Promyelocytes % (Man) 0 Blast Cells % (Manual) 0 Nucleated RBC % 0 Metamyelocytes 0 Sodium Potassium Chloride Carbon Dioxide Anion Gap BUN Creatinine Est GFR (CKD-EPI)AfAm Est GFR (CKD-EPI)NonAf Random Glucose Calcium Total Bilirubin AST ALT Alkaline Phosphatase Troponin I Total Protein Albumin Influenza A (Rapid) Negative Influenza B (Rapid) Negative RSV Rapid Negative 03/22/19 17:30 WBC RBC Hgb Hct MCV MCH MCHC RDW Plt Count MPV Absolute Neuts (auto) Neutrophils % Neutrophils % (Manual) Band Neutrophils % Lymphocytes % Lymphocytes % (Manual) Monocytes % Monocytes % (Manual) Eosinophils % Eosinophils % (Manual) Basophils % Basophils % (Manual) Myelocytes % (Man) Promyelocytes % (Man) Blast Cells % (Manual) Nucleated RBC % Metamyelocytes Sodium 140 Potassium 3.6 Chloride 106 Carbon Dioxide 21 Anion Gap 13 BUN 6.8 L Creatinine 0.9 Est GFR (CKD-EPI)AfAm 98.75 Est GFR (CKD-EPI)NonAf 85.20 Random Glucose 146 H Calcium 8.5 Total Bilirubin 0.2 AST 22 ALT 41 Alkaline Phosphatase 98 Troponin I < 0.02 Total Protein 7.3 Albumin 3.9 Influenza A (Rapid) Influenza B (Rapid) RSV Rapid ASSESSMENT/PLAN: 33 F h/o moderate persistent asthma (never intubated) poorly controlled d/t medicaiton non-compliance, presents with LORI 2/2 ?URI. Patient moving air, however still having persistent wheezing. Bronchial asthma exacerbation Cont. nebs around the clock, IV steroids, Singulair 10mg QHS, obtain ABG if breathing deteriorates Trops neg x1, obtain EKG, low suspicion for PE however if persistently tachycardic/breathless obtain D-dimer/CTA although tachycardia likely driven by nebs and anxiety Pulmonary evaluation for optimization of asthma meds : Dr Nolasco Obesity counseled on diet, exercise, weight loss ?T2DM on Metformin 1000mg BID send A1c, lipid panel, TSH DVT ppx: Lovenox [place] Visit type - Emergency Visit Emergency Visit: Yes ED Registration Date: 03/22/19 Care time: The patient presented to the Emergency Department on the above date and was hospitalized for further evaluation of their emergent condition. - New Patient This patient is new to me today: Yes Date on this admission: 03/22/19 - Critical Care Critical Care patient: No
[2019-03-22] MEDS ORDERED: ALBUTEROL SO4 2.5/IPRATROPIUM 0.5 INH SOL 3 ML VIAL.NEB. NEB PRN (20:43)
[2019-03-22] MEDS ORDERED: IPRATROPIUM BR 0.02% 0.5 MG/2.5 ML VIAL.NEB. NEB ONE (20:43)
[2019-03-22] MEDS: methylPREDNISolone NA SUCC 40 MG/1 ML VIAL IVPUSH SCH (21:09)
[2019-03-22] MEDS: MONTELUKAST NA 10 MG TABLET PO SCH (21:09)
--- NOTE | 2019-03-22 21:25 | HOSP ---
Subjective - Review of Symptoms Events since last encounter: Hospitalist Encounter Notified by the RN that the patient reports having chest tightness and increased SOB/wheezing after being placed in her room. Was asked to assess. Arrived to [address], patient received sitting in wheelchair, awake, alert and oriented. Patient reports having difficulty breathing with chest tightness. States" I feel like I'm going to ".Patient is on 2LNC spo2 99%, P- 136. PE performed-coarse scattered wheeze/rhonchi. No accessory use. Assessment: This is a 33 y/o woman with a PMHx of Asthma, Gastritis. Admitted for Asthma Exacerbation. Plan: EKG- stat Ipratropium neb- stat Pulmonary: Yes: Dyspnea, Cough, Pleuritic Chest Pain Cardiovascular: Yes: Orthopnea Physical Examination Vital Signs: Vital Signs Temperature 97.4 F L 03/22/19 14:17 Pulse Rate 120 H 03/22/19 19:23 Respiratory Rate 22 H 03/22/19 19:23 Blood Pressure 112/60 03/22/19 19:23 O2 Sat by Pulse Oximetry (%) 99 03/22/19 19:23 Constitutional: Yes: Anxious, Moderate Distress, Obese Eyes: Yes: WNL, Conjunctiva Clear, EOM Intact, PERRL HENT: Yes: WNL, Atraumatic, Normocephalic Neck: Yes: WNL, Supple, Trachea Midline Cardiovascular: Yes: Tachycardia, S1, S2 Respiratory: Yes: Cough, On Nasal O2, Rhonchi, SOB, SOB on Exertion, Wheezes Gastrointestinal: Yes: WNL, Normal Bowel Sounds, Soft, Abdomen, Obese ...Rectal Exam: Yes: Deferred Renal/: Yes: WNL Breast(s): Yes: WNL Musculoskeletal: Yes: WNL Extremities: Yes: WNL Edema: No Peripheral Pulses WNL: Yes Neurological: Yes: WNL, Alert, Oriented, Cran Nerves II-XII Intact ...Motor Strength: WNL Psychiatric: Yes: Alert, Oriented Labs: CBC, BMP 03/22/19 17:30 03/22/19 17:30 Laboratory Results - last 24 hr 03/22/19 03/22/19 03/22/19 15:20 17:12 17:30 WBC 12.4 H RBC 4.50 Hgb 12.7 Hct 38.5 MCV 85.6 MCH 28.2 MCHC 32.9 RDW 13.7 Plt Count 306 MPV 8.2 Absolute Neuts (auto) 11.4 H Neutrophils % 91.9 H D Neutrophils % (Manual) 96.1 H Band Neutrophils % 0.0 Lymphocytes % 6.0 L D Lymphocytes % (Manual) 2.9 L Monocytes % 1.1 L Monocytes % (Manual) 0 L Eosinophils % 0.7 D Eosinophils % (Manual) 1.0 Basophils % 0.3 Basophils % (Manual) 0.0 Myelocytes % (Man) 0 Promyelocytes % (Man) 0 Blast Cells % (Manual) 0 Nucleated RBC % 0 Metamyelocytes 0 Sodium Potassium Chloride Carbon Dioxide Anion Gap BUN Creatinine Est GFR (CKD-EPI)AfAm Est GFR (CKD-EPI)NonAf Random Glucose Calcium Total Bilirubin AST ALT Alkaline Phosphatase Troponin I Total Protein Albumin Influenza A (Rapid) Negative Influenza B (Rapid) Negative RSV Rapid Negative 03/22/19 17:30 WBC RBC Hgb Hct MCV MCH MCHC RDW Plt Count MPV Absolute Neuts (auto) Neutrophils % Neutrophils % (Manual) Band Neutrophils % Lymphocytes % Lymphocytes % (Manual) Monocytes % Monocytes % (Manual) Eosinophils % Eosinophils % (Manual) Basophils % Basophils % (Manual) Myelocytes % (Man) Promyelocytes % (Man) Blast Cells % (Manual) Nucleated RBC % Metamyelocytes Sodium 140 Potassium 3.6 Chloride 106 Carbon Dioxide 21 Anion Gap 13 BUN 6.8 L Creatinine 0.9 Est GFR (CKD-EPI)AfAm 98.75 Est GFR (CKD-EPI)NonAf 85.20 Random Glucose 146 H Calcium 8.5 Total Bilirubin 0.2 AST 22 ALT 41 Alkaline Phosphatase 98 Troponin I < 0.02 Total Protein 7.3 Albumin 3.9 Influenza A (Rapid) Influenza B (Rapid) RSV Rapid Intake & Output 03/19/19 03/20/19 03/21/19 03/22/19 23:59 23:59 23:59 23:59 Weight 92.136 kg Current Medications Generic Name Dose Route Start Last Admin Trade Name Freq PRN Reason Stop Dose Admin Acetaminophen 650 mg 03/22/19 20:46 Tylenol - PO Q6H PRN PAIN LEVEL 4 - 6 Albuterol/Ipratropium 1 amp 03/22/19 20:43 Duoneb - NEB Q4H PRN SHORTNESS OF BREATH Enoxaparin Sodium 40 mg 03/23/19 10:00 Lovenox - SQ DAILY GILDA Ipratropium [place] 1 amp 03/23/19 08:00 Atrovent 0.02% Nebulizer - NEB RQID GILDA Methylprednisolone Sodium Succinate 40 mg 03/22/19 21:00 03/22/19 21:09 Solu-Medrol - IVPUSH 40 mg Q6H-IV GILDA Administration Montelukast Sodium 10 mg 03/22/19 22:00 03/22/19 21:09 Singulair - PO 10 mg HS GILDA Administration Hospitalist Encounter Outcome: EKG reviewed ST 134 bpm, no ST or TWI abnormalities, no change compared to prior study Patient reports breathing improvement post medication Wells Score- 1.5 low risk probability for PE PERC-1 Addendum 23:25- was notified by the RN that the patient is reporting wheezing and increased SOB. PE: AAOx3, Speaking in full sentences. Lungs- diffuse, coarse scattered wheeze, rhonchi. Heart- tachycardia, S1S2. Plan ABG ordered Discussed case with Dr. Dasilva ICU Resident for eval Post ABG- spo2 98% on 3LNC ABG- 7.4/36.2/85.2/21.8/96.1 0630: Per RN this am, patient slept for several hrs without reports of worsening respiratory distress Recommendations/Interventions: Chest CTA r/o Pneumonia if respiratory condition worsens Critical Care Total Critical Care Time (in minutes): 75 Critical Care Statement: The care of this patient involved high complexity decision making to prevent further life threatening deterioration of the patient 's condition and/or to evaluate & treat vital organ system(s) failure or risk of failure.
[2019-03-22] MEDS ORDERED: ACETAMINOPHEN 1000 MG/100 ML VIAL (NON FORMULARY) IVPB ONE (23:34)
[2019-03-22 23:48] LABS: ARTERIAL BLD GAS O2 SATURATION 96.1 % (95-98); ARTERIAL BLOOD GAS PCO2 36.2 mmHg (35-45); ARTERIAL BLOOD GAS PO2 85.2 mmHg (80-100)
[2019-03-22 23:50] LABS: ALLENS TEST POSITIVE
--- NOTE | 2019-03-23 00:59 | CONSULT ---
Consultation: REQUESTING PROVIDER: Olya Campuzano NP CONSULT REQUEST: We have been asked to medically evaluate this patient for asthm a exacerbation. HISTORY OF PRESENT ILLNESS: 33F w/ pmhx of asthma exacerbation presented to the ED for progressively worsening shortness of breath over the past several days. States her symptoms started when she was exposed to a friend's dog on Tuesday. Upon arrival in the ED, she was admitted for asthma exacerbation and was started on duonebs, Solumedrol, IV Mag and Singulair. We were called to assess patient for persistent tachycardia and shortness of breath while patient remained on med- surg floor after admission. Upon arrival, pt stated that her roommate's family had brought carolina into the room after which her asthma symptoms were triggered and her breathing worsened. She was subsequently given a nebulizer treatment with some short term symptomatic relief, but soon became short of breath afterwards. Pt appeared anxious as a result of the carolina she was previously exposed to as it is a known trigger for her asthma. Throughout this episode, pt remained satting at 97% on 3L NC with no apparent respiratory distress, speaking in full sentences with no accessory muscle use. By the end of encounter, pt stated she felt much better, less anxious and less short of breath. She did, however state that she had back pain that has persisted since the onset of her asthma exacerbation. REVIEW OF SYSTEMS: CONSTITUTIONAL: Absent: fever, chills, diaphoresis, generalized weakness, malaise, loss of appetite, weight change HEENT: Absent: rhinorrhea, nasal congestion, throat pain, throat swelling, difficulty swallowing, mouth swelling, ear pain, eye pain, visual changes CARDIOVASCULAR: Absent: chest pain, syncope, palpitations, irregular heart rate, lightheadedness, peripheral edema RESPIRATORY: cough with productive sputum, shortness of breath, dyspnea with exertion, orthopnea, wheezing Absent: stridor, hemoptysis GASTROINTESTINAL: Absent: abdominal pain, abdominal distension, nausea, vomiting, diarrhea, constipation, melena, hematochezia GENITOURINARY: Absent: dysuria, frequency, urgency, hesitancy, hematuria, flank pain, genital pain MUSCULOSKELETAL: Absent: myalgia, arthralgia, joint swelling, back pain, neck pain SKIN: Absent: rash, itching, pallor HEMATOLOGIC/IMMUNOLOGIC: Absent: easy bleeding, easy bruising, lymphadenopathy, frequent infections ENDOCRINE: Absent: unexplained weight gain, unexplained weight loss, heat intolerance, cold intolerance NEUROLOGIC: Absent: headache, focal weakness or paresthesias, dizziness, unsteady gait, seizure, mental status changes, bladder or bowel incontinence PSYCHIATRIC: anxiety Absent: depression, suicidal or homicidal ideation, hallucinations. PHYSICAL EXAMINATION Vital Signs - 24 hr 03/22/19 03/22/19 03/22/19 14:17 14:20 18:55 Temperature 97.4 F L Pulse Rate 113 H Pulse Rate [ 128 H Right Radial] Respiratory 22 H 20 Rate Blood Pressure 116/77 Blood Pressure 106/61 [Left Arm] O2 Sat by Pulse 97 97 95 Oximetry (%) 03/22/19 03/22/19 03/22/19 19:23 22:39 23:08 Temperature 98.0 F Pulse Rate 140 H Pulse Rate [ 120 H Right Radial] Respiratory 22 H 26 H Rate Blood Pressure 115/56 L Blood Pressure 112/60 [Left Arm] O2 Sat by Pulse 99 98 Oximetry (%) 03/22/19 23:14 Temperature Pulse Rate Pulse Rate [ Right Radial] Respiratory 26 H Rate Blood Pressure Blood Pressure [Left Arm] O2 Sat by Pulse 98 Oximetry (%) GENERAL: AAOx3. NAD. Resting comfortably in bed. HEENT: AT/NC. EOMI. MMM. NECK: Normal range of motion, supple without lymphadenopathy, JVD, or masses. LUNGS: Significant scattered wheezes throughout b/l lung [place]. Symmetric chest rise. On 3L O2 NC. No accessory muscle use noted. Speaks in complete sentences. HEART: Tachycardic. Normal S1, S2. ABDOMEN: Soft, NT/ND. Normoactive bowel sounds. No guarding/masses. MUSCULOSKELETAL: Normal range of motion at all joints. No bony deformities or tenderness. No CVA tenderness. EXTREMITIES: Moves all extremities. NEUROLOGICAL: Cranial nerves II-XII intact. Normal speech. SKIN: Warm, dry, normal turgor, no rashes or lesions noted. CBCD WBC 12.4 K/mm3 (4.0-10.0) H 03/22/19 17:30 RBC 4.50 M/mm3 (3.60-5.2) 03/22/19 17:30 Hgb 12.7 GM/dL (10.7-15.3) 03/22/19 17:30 Hct 38.5 % (32.4-45.2) 03/22/19 17:30 MCV 85.6 fl (80-96) 03/22/19 17:30 MCHC 32.9 g/dl (32.0-36.0) 03/22/19 17:30 RDW 13.7 % (11.6-15.6) 03/22/19 17:30 Plt Count 306 K/MM3 (134-434) 03/22/19 17:30 MPV 8.2 fl (7.5-11.1) 03/22/19 17:30 CMP Sodium 140 mmol/L (136-145) 03/22/19 17:30 Potassium 3.6 mmol/L (3.5-5.1) 03/22/19 17:30 Chloride 106 mmol/L (98-107) 03/22/19 17:30 Carbon Dioxide 21 mmol/L (21-32) 03/22/19 17:30 Anion Gap 13 MMOL/L (8-16) 03/22/19 17:30 BUN 6.8 mg/dL (7-18) L 03/22/19 17:30 Creatinine 0.9 mg/dL (0.55-1.3) 03/22/19 17:30 Calcium 8.5 mg/dL (8.5-10.1) 03/22/19 17:30 Total Bilirubin 0.2 mg/dL (0.2-1) 03/22/19 17:30 AST 22 U/L (15-37) 03/22/19 17:30 ALT 41 U/L (13-61) 03/22/19 17:30 Alkaline Phosphatase 98 U/L (45-117) 03/22/19 17:30 Total Protein 7.3 g/dl (6.4-8.2) 03/22/19 17:30 Albumin 3.9 g/dl (3.4-5.0) 03/22/19 17:30 Active Medications Acetaminophen (Tylenol -) 650 mg PO Q6H PRN PRN Reason: PAIN LEVEL 4 - 6 Albuterol/Ipratropium (Duoneb -) 1 amp NEB Q4H PRN PRN Reason: SHORTNESS OF BREATH Enoxaparin Sodium (Lovenox -) 40 mg SQ DAILY GILDA Ipratropium Beason (Atrovent 0.02% Nebulizer -) 1 amp NEB RQID GILDA Melatonin (Melatonin) 10 mg PO HS GILDA Methylprednisolone Sodium Succinate (Solu-Medrol -) 40 mg IVPUSH Q6H-IV GILDA Last Admin: 03/22/19 21:09 Dose: 40 mg Montelukast Sodium (Singulair -) 10 mg PO HS GILDA Last Admin: 03/22/19 21:09 Dose: 10 mg ASSESSMENT/PLAN: 33F w/ pmhx of asthma exacerbation presented to the ED for progressively worsening shortness of breath admitted for asthma exacerbation. We were consulted to evaluate patient for persistent shortness of breath and tachycardia. Upon evaluation, pt was found to be satting well on 3L NC, in no acute distress, speaking in complete sentences. She was given Duonebs, Singulair, IV Mag, and IV Solumedrol for treatment of her asthma exacerbation. Prior to speaking with her, she had just received Atrovent via nebs and stated the treatment had helped with her breathing. Pt likely has a component of anxiety contributing to her shortness of breath in addition to her asthma. She stated she felt much better after verbalizing her earlier issue of being inappropriately exposed to car[place] while in the hospital. We advised avoiding known triggers. Due to significant scattered wheezes heard on lung exam can continue current management, but hold albuterol treatments for now given persistent tachycardia. Melatonin PRN to help sleep, and Tylenol PRN for pain. Dispo: Pt does not currently need ICU level of care at this time. Please re- consult if patient has worsening respiratory status requiring intubtaion or hemodynamic instability requiring pressor support. Thank you for this consultative opportunity. Visit type - Emergency Visit Emergency Visit: Yes ED Registration Date: 03/22/19 Care time: The patient presented to the Emergency Department on the above date and was hospitalized for further evaluation of their emergent condition. - New Patient This patient is new to me today: No - Critical Care Critical Care patient: No ATTENDING PHYSICIAN STATEMENT I saw and evaluated the patient. I reviewed the resident's note and discussed the case with the resident. I agree with the resident's findings and plan as documented. SUBJECTIVE: OBJECTIVE: ASSESSMENT AND PLAN:
[2019-03-23] MEDS: MELATONIN 5 MG TABLETS PO SCH ×2 (01:26→21:27)
[2019-03-23] MEDS: methylPREDNISolone NA SUCC 40 MG/1 ML VIAL IVPUSH SCH ×4 (02:03→21:28)
[2019-03-23] MEDS ORDERED: IPRATROPIUM BR 0.02% 0.5 MG/2.5 ML VIAL.NEB. NEB SCH ×2 (08:00→09:15)
[2019-03-23] MEDS: ACETAMINOPHEN 325 MG TABLET (FP) PO PRN (08:10)
[2019-03-23] MEDS: SODIUM CHLORIDE 1,000 ML IV SCH (08:12)
--- NOTE | 2019-03-23 09:15 | PN ---
Physical Exam: SUBJECTIVE: Patient seen and examined at the bedside. in no acute distress, examined in the hallway as she felt her asthma will worsen in her assigned room secondary to scents in the room. She denies any chest pain, denies nausea or vomiting. OBJECTIVE: Patient is a 33 year old female with a significant past medical history moderate persistent asthma, left shoulder impingement, seasonal allergies, and PCOS. Patient presents to [facility] with shortness of breath, wheezing, productive mucus since Tuesday. She was sent to urgent care and referred to the ED for further management. She is being admitted for acute asthma exacerbation. On exam patient sitting up in bed, speaking in full sentences, not showing signs of respiratory compromise. Not a diabetic, on metformin for PCOS. Vital Signs Period Temp Pulse Resp BP Sys/Stokes Pulse Ox Last 24 Hr 97.4 F-98.0 F 100-140 20-26 106-117/55-77 95-99 GENERAL: The patient is awake, alert, and fully oriented, in no acute distress. HEAD: Normal with no signs of trauma. EYES: PERRL, extraocular movements intact, sclera anicteric, conjunctiva clear. No ptosis. ENT: Ears normal, nares patent, oropharynx clear without exudates, moist mucous membranes. NECK: Trachea midline, full range of motion, supple. LUNGS: mild expiratory wheezing mostly of right lung, upper left lobe with mild wheezing. tolerating room air. HEART: Regular rate and rhythm ABDOMEN: Soft, nontender, nondistended, normoactive bowel sounds EXTREMITIES: no edema. NEUROLOGICAL: Normal speech, gait not observed. Laboratory Results - last 24 hr 03/22/19 03/22/19 03/22/19 15:20 17:12 17:30 WBC 12.4 H RBC 4.50 Hgb 12.7 Hct 38.5 MCV 85.6 MCH 28.2 MCHC 32.9 RDW 13.7 Plt Count 306 MPV 8.2 Absolute Neuts (auto) 11.4 H Neutrophils % 91.9 H D Neutrophils % (Manual) 96.1 H Band Neutrophils % 0.0 Lymphocytes % 6.0 L D Lymphocytes % (Manual) 2.9 L Monocytes % 1.1 L Monocytes % (Manual) 0 L Eosinophils % 0.7 D Eosinophils % (Manual) 1.0 Basophils % 0.3 Basophils % (Manual) 0.0 Myelocytes % (Man) 0 Promyelocytes % (Man) 0 Blast Cells % (Manual) 0 Nucleated RBC % 0 Metamyelocytes 0 Anticoagulation Therapy Puncture Site ABG pH ABG pCO2 at Pt Temp ABG pO2 at Pt Temp ABG HCO3 ABG O2 Sat (Measured) ABG O2 Content ABG Base Excess Gustavo Test O2 Delivery Device Oxygen Flow Rate Vent Mode Vent Rate Mechanical Rate Pressure Support Vent Sodium Potassium Chloride Carbon Dioxide Anion Gap BUN Creatinine Est GFR (CKD-EPI)AfAm Est GFR (CKD-EPI)NonAf Random Glucose Calcium Total Bilirubin AST ALT Alkaline Phosphatase Troponin I Total Protein Albumin Influenza A (Rapid) Negative Influenza B (Rapid) Negative RSV Rapid Negative 03/22/19 03/22/19 17:30 23:40 WBC RBC Hgb Hct MCV MCH MCHC RDW Plt Count MPV Absolute Neuts (auto) Neutrophils % Neutrophils % (Manual) Band Neutrophils % Lymphocytes % Lymphocytes % (Manual) Monocytes % Monocytes % (Manual) Eosinophils % Eosinophils % (Manual) Basophils % Basophils % (Manual) Myelocytes % (Man) Promyelocytes % (Man) Blast Cells % (Manual) Nucleated RBC % Metamyelocytes Anticoagulation Therapy No Result Required. Puncture Site Right radial ABG pH 7.40 ABG pCO2 at Pt Temp 36.2 ABG pO2 at Pt Temp 85.2 ABG HCO3 21.8 L ABG O2 Sat (Measured) 96.1 ABG O2 Content 16.7 ABG Base Excess -2.0 Gustavo Test Positive O2 Delivery Device No Result Required. Oxygen Flow Rate Yes Vent Mode No Result Required. Vent Rate No Result Required. Mechanical Rate No Result Required. Pressure Support Vent No Result Required. Sodium 140 Potassium 3.6 Chloride 106 Carbon Dioxide 21 Anion Gap 13 BUN 6.8 L Creatinine 0.9 Est GFR (CKD-EPI)AfAm 98.75 Est GFR (CKD-EPI)NonAf 85.20 Random Glucose 146 H Calcium 8.5 Total Bilirubin 0.2 AST 22 ALT 41 Alkaline Phosphatase 98 Troponin I < 0.02 Total Protein 7.3 Albumin 3.9 Influenza A (Rapid) Influenza B (Rapid) RSV Rapid Active Medications Generic Name Dose Route Start Last Admin Trade Name Freq PRN Reason Stop Dose Admin Acetaminophen 650 mg 03/22/19 20:46 03/23/19 08:10 Tylenol - PO 650 mg Q6H PRN Administration PAIN LEVEL 4 - 6 Albuterol/Ipratropium 1 amp 03/22/19 20:43 03/23/19 03:20 Duoneb - NEB 1 amp Q4H PRN Administration SHORTNESS OF BREATH Enoxaparin Sodium 40 mg 03/23/19 10:00 Lovenox - SQ DAILY GILDA Fluticasone Propionate 1 spray 03/23/19 10:00 Flonase - NS BID GILDA Sodium Chloride 1,000 mls @ 75 mls/hr 03/23/19 08:15 03/23/19 08:12 Normal Saline - IV 75 mls/hr ASDIR GILDA Administration Ipratropium Parsons 1 amp 03/23/19 09:15 Atrovent 0.02% Nebulizer - NEB Q3H GILDA Melatonin 10 mg 03/23/19 01:30 03/23/19 01:26 Melatonin PO 10 mg HS GILDA Administration Methylprednisolone Sodium Succinate 40 mg 03/22/19 21:00 03/23/19 02:03 Solu-Medrol - IVPUSH 40 mg Q6H-IV GILDA Administration Montelukast Sodium 10 mg 03/22/19 22:00 03/22/19 21:09 Singulair - PO 10 mg HS IGLDA Administration ASSESSMENT/PLAN: Problem List - Problems (1) Asthma Assessment/Plan: Bronchial asthma exacerbation. on nebs, xopenex, solumedrol taper tolerating room air pulmonary evaluation appreciated Code(s): J45.909 - UNSPECIFIED ASTHMA, UNCOMPLICATED Qualifiers: Asthma severity: moderate Asthma persistence: unspecified Asthma complication type: with acute exacerbation Qualified Code(s): J45.901 - Unspecified asthma with (acute) exacerbation (2) Obesity (BMI 30-39.9) Assessment/Plan: weight loss encouraged Code(s): E66.9 - OBESITY, UNSPECIFIED (3) Prophylactic measure Assessment/Plan: ns at 75cc monitor electrolytes full code ambulation encouraged Code(s): Z29.9 - ENCOUNTER FOR PROPHYLACTIC MEASURES, UNSPECIFIED Visit type - Emergency Visit Emergency Visit: Yes ED Registration Date: 03/22/19 Care time: The patient presented to the Emergency Department on the above date and was hospitalized for further evaluation of their emergent condition. - New Patient This patient is new to me today: Yes Date on this admission: 03/23/19 - Critical Care Critical Care patient: No - Discharge Referral Referred to [facility] No
[2019-03-23 09:28] LABS: COCAINE, UR NEGATIVE ng/ml (CUTOFF=300); METHADONE, UR NEGATIVE ng/ml (CUTOFF=300); OPIATES, URI NEGATIVE ng/ml (CUTOFF=300); PHENCYCLIDINE,URINE NEGATIVE ng/ml (CUTOFF=25); URINE AMPHETAMINES NEGATIVE ng/ml (CUTOFF=500); URINE BARBITURATES NEGATIVE ng/ml (CUTOFF=200); URINE BENZODIAZEPINES NEGATIVE ng/ml (CUTOFF=200)
[2019-03-23] MEDS: PANTOPRAZOLE 40 MG TABLET PO SCH ×2 (09:50→09:57)
[2019-03-23] MEDS: ENOXAPARIN NA (PORCINE) 40 MG/0.4 ML DISP.SYRIN SQ SCH ×2 (09:51→09:59)
--- NOTE | 2019-03-23 10:01 | CON.ID ---
Consult Consult Specialty:: infectious diseases Referred by:: jackie Reason for Consultation:: pneumonia,sob - History of Present Illness Chief Complaint: sob,sinuses,leukocytosis History of Present Illness: 33 F h/o asthma, L shoulder impingement, seasonal allergies, admitted with SOB , wheezing, productive mucus since Tuesday. Patient endorses recently being exposed to a dog at a friends house on Tuesday and noticed her asthma acted up after. Her daughter also suffered from URI during this time where she thinks she was exposed. Patient tried 1/2 round of nebs at home (used her daughters nebulizer mahcine) without improvement so went to urgent care where they told her to go to ED d/t LORI. In ED pt. received round of nebs/Mg/IV steroids w/ some improvement of SOB, but then pt. received NSAID (Toradol/Ibuprofen) for intercoastal rib pain and her wheezing persisted. patient currently feels better still with pressure on the sinuses - History Source History Provided By: Patient Limitations to Obtaining History: No Limitations - Past Medical History Pulmonary: Yes: Asthma Gastrointestinal: Yes: GERD, Other (Fatty Liver Disease) ...LMP: 12/30/18 Psych: Yes: Other (nervous tic) - Alcohol/Substance Use Hx Alcohol Use: No - Smoking History Smoking history: Never smoked Have you smoked in the past 12 months: No Home Medications - Allergies Allergies/Adverse Reactions: Allergies Allergy/AdvReac Type Severity Reaction Status Date / Time No Known Allergies Allergy Verified 03/22/19 14:20 - Home Medications Home Medications: Ambulatory Orders Montelukast Na [Singulair -] 10 mg PO HS 03/08/14 Albuterol Sulfate Inhaler - [Ventolin HFA Inhaler -] 1 - 2 inh PO DAILY PRN 12/12 metFORMIN HCL [Metformin HCl] 1,000 mg PO BID 12/05/17 Budesonide/Formeterol Fumarate [SYMBICORT 160/4.5mcg -] 1 inh PO DAILY 01/01/19 Hydrocodone/Acetaminophen [Hydrocodone-Acetamin 5-325 mg] 1 each PO Q6H #20 tablet MDD 4 01/03/19 Review of Systems - Review of Systems Constitutional: reports: No Symptoms Eyes: reports: No Symptoms HENT: reports: No Symptoms Neck: reports: No Symptoms Cardiovascular: reports: No Symptoms Respiratory: reports: SOB, SOB on Exertion, Wheezing Gastrointestinal: reports: No Symptoms Genitourinary: reports: No Symptoms Musculoskeletal: reports: No Symptoms Integumentary: reports: No Symptoms Neurological: reports: No Symptoms Endocrine: reports: No Symptoms Hematology/Lymphatic: reports: No Symptoms Psychiatric: reports: No Symptoms Physical Exam Vital Signs: Vital Signs Temperature 98.0 F 03/23/19 06:00 Pulse Rate 100 H 03/23/19 06:00 Respiratory Rate 20 03/23/19 06:00 Blood Pressure 110/55 L 03/23/19 06:00 O2 Sat by Pulse Oximetry (%) 98 03/22/19 23:14 Constitutional: Yes: Well Nourished, Calm, Mild Distress, Obese Eyes: Yes: Conjunctiva Clear HENT: Yes: Atraumatic, Normocephalic Neck: Yes: Supple, Trachea Midline Cardiovascular: Yes: Regular Rate and Rhythm Respiratory: Yes: Regular, Wheezes Gastrointestinal: Yes: Normal Bowel Sounds, Soft Musculoskeletal: Yes: WNL Extremities: Yes: WNL Neurological: Yes: Alert, Oriented Psychiatric: Yes: Alert, Oriented Imaging - Results Chest X-ray: Report Reviewed, Image Reviewed Assessment/Plan 33 F h/o moderate persistent asthma poorly controlled d/t medicaiton non- compliance, presents with LORI 2/2 ?URI. Patient moving air, however still having persistent wheezing. exacerbation of asthma sob resp difficulty obesity plan continue current mgmt no abx incentive slim rest as per the team
[2019-03-23 10:07] LABS: BASO % 0.1 % (0-2.0); HEMATOCRIT 39.7 % (32.4-45.2); HEMOGLOBIN 13.1 GM/dL (10.7-15.3); LYMPH % 5.6 % (8-40); MCH 28.5 pg (25.7-33.7); MEAN CELL VOLUME 86.3 fl (80-96); MEAN PLT VOLUME 8.5 fl (7.5-11.1); MONO % 1.2 % (3.8-10.2); NEUT % 93.1 % (42.8-82.8); PLATELET COUNT 334 K/MM3 (134-434); RDW 13.9 % (11.6-15.6); WHITE BLOOD COUNT 17.9 K/mm3 (4.0-10.0)
[2019-03-23 10:33] LABS: ALBUMIN 3.9 g/dl (3.4-5.0); BILIRUBIN,TOTAL 0.3 mg/dL (0.2-1); BLOOD UREA NITROGEN 9.6 mg/dL (7-18); CALCIUM 9.6 mg/dL (8.5-10.1); CREATININE 0.8 mg/dL (0.55-1.3); MAGNESIUM 2.8 mg/dL (1.8-2.4); POTASSIUM 4.2 mmol/L (3.5-5.1); TOT PROT 7.7 g/dl (6.4-8.2)
[2019-03-23] MEDS: FLUTICASONE PROP 0.05% 16 GM NASAL SPRAY NS SCH ×2 (10:45→23:39)
--- NOTE | 2019-03-23 11:15 | CON.PULM ---
Consult Consult Specialty:: PULMONARY Referred by:: NABIL Reason for Consultation:: B.ASTHMA - History of Present Illness Chief Complaint: SOB/COUGH/WHEEZE History of Present Illness: 33-year-old anxious female presents to ED with complaints of worsening shortness of breath coughing and wheezing for the past day. Patient states has been using her inhaler with no improvement. Patient states went to urgent care clinic where she was given 2 treatments with minimal improvement. Patient was sent here to the ED for further management. Patient denies chest pain but states generalized rib pains bilaterally. Patient denies fever, recent travel, or recent illness. Patient denies smoking history. Never hospitalized for asthma. - History Source History Provided By: Patient, Medical Record Limitations to Obtaining History: No Limitations - Past Medical History REGISTERED SAFETY ENGINEER: No: Alzheimer's Cardio/Vascular: No: AFIB Pulmonary: Yes: Asthma Gastrointestinal: Yes: GERD, Other (Fatty Liver Disease) Hepatobiliary: No: Cirrhosis Renal/: No: Renal Failure ...LMP: 12/30/18 Heme/Onc: No: Anemia Psych: Yes: Other (nervous tic) - Alcohol/Substance Use Hx Alcohol Use: No History of Substance Use: reports: None - Smoking History Smoking history: Never smoked Have you smoked in the past 12 months: No - Social History ADL: Independent Place of : [facility] Home Medications - Allergies Allergies/Adverse Reactions: Allergies Allergy/AdvReac Type Severity Reaction Status Date / Time No Known Allergies Allergy Verified 03/22/19 14:20 - Home Medications Home Medications: Ambulatory Orders Montelukast Na [Singulair -] 10 mg PO HS 03/08/14 Albuterol Sulfate Inhaler - [Ventolin HFA Inhaler -] 1 - 2 inh PO DAILY PRN 12/12 metFORMIN HCL [Metformin HCl] 1,000 mg PO BID 12/05/17 Budesonide/Formeterol Fumarate [SYMBICORT 160/4.5mcg -] 1 inh PO DAILY 01/01/19 Hydrocodone/Acetaminophen [Hydrocodone-Acetamin 5-325 mg] 1 each PO Q6H #20 tablet MDD 4 01/03/19 Family Medical History Family History: Unremarkable Review of Systems - Review of Systems Constitutional: denies: Fever Eyes: denies: Blurred Vision HENT: denies: Ear Discharge Neck: denies: Lumps Cardiovascular: denies: Edema Respiratory: reports: Cough, Exercise Intolerance, SOB, SOB on Exertion, Wheezing. denies: Hemoptysis, Orthopnea Gastrointestinal: denies: Abdominal Pain Genitourinary: denies: Burning Physical Exam Vital Sings: Vital Signs Temperature 98.0 F 03/23/19 06:00 Pulse Rate 100 H 03/23/19 06:00 Respiratory Rate 20 03/23/19 06:00 Blood Pressure 110/55 L 03/23/19 06:00 O2 Sat by Pulse Oximetry (%) 98 03/22/19 23:14 Constitutional: Yes: Anxious Eyes: Yes: EOM Intact HENT: Yes: Normocephalic Neck: Yes: Trachea Midline Cardiovascular: Yes: Tachycardia, S1, S2 Respiratory: Yes: Wheezes Gastrointestinal: Yes: Normal Bowel Sounds Edema: No Neurological: Yes: Alert Psychiatric: Yes: Alert Labs: CBC, BMP 03/23/19 09:20 03/23/19 09:20 ABG Results ABG pH 7.40 (7.35-7.45) 03/22/19 23:40 ABG pCO2 at Pt Temp 36.2 mmHg (35-45) 03/22/19 23:40 ABG pO2 at Pt Temp 85.2 mmHg (80-100) 03/22/19 23:40 ABG HCO3 21.8 mmol/L (22-27) L 03/22/19 23:40 ABG O2 Sat (Measured) 96.1 % (95-98) 03/22/19 23:40 ABG O2 Content 16.7 % vol 03/22/19 23:40 ABG Base Excess -2.0 meq/l (-2-2) 03/22/19 23:40 reviewed Imaging - Results Chest X-ray: Report Reviewed, Image Reviewed Problem List - Problems (1) Asthma Code(s): J45.909 - UNSPECIFIED ASTHMA, UNCOMPLICATED Qualifiers: Asthma severity: moderate Asthma persistence: unspecified Asthma complication type: with acute exacerbation Qualified Code(s): J45.901 - Unspecified asthma with (acute) exacerbation Assessment/Plan A/E B.ASTHMA LIKLEY DUE TO ACUTE BRONCHITIS SOLUMEDROL 40MG Q6 XOPENEX Q1 PRN DUONEB QID STANDING/SINGULAIR O2 PRN/SUGGEST TRIAL OF ANTIBIOTICS DVT PROPHYLAXSIS DAILY PEAK FLOW WILL ADD ICS/LABA IN AM R CHRIS MD
[2019-03-23] MEDS: ALBUTEROL SO4 2.5/IPRATROPIUM 0.5 INH SOL 3 ML VIAL.NEB. NEB SCH ×3 (13:00→20:29)
--- NOTE | 2019-03-23 14:02 | EKG ---
Test Reason : Blood Pressure : / mmHG Vent. Rate : 134 BPM Atrial Rate : 134 BPM P-R Int : 134 ms QRS Dur : 082 ms QT Int : 290 ms P-R-T Axes : 060 073 012 degrees QTc Int : 433 ms POOR DATA QUALITY, INTERPRETATION MAY BE ADVERSELY AFFECTED SINUS TACHYCARDIA WHEN COMPARED WITH ECG OF 22-MAR-2019 17:46, INVERTED T WAVES HAVE REPLACED NONSPECIFIC T WAVE ABNORMALITY IN INFERIOR LEADS Confirmed by JE HUMMEL MD ([id number]) on 03/23/2019 2:02:16 PM Referred By: KIMBERLEY PETTY Confirmed By:JE HUMMEL MD
--- NOTE | 2019-03-23 14:04 | EKG ---
Test Reason : Blood Pressure : / mmHG Vent. Rate : 124 BPM Atrial Rate : 124 BPM P-R Int : 146 ms QRS Dur : 082 ms QT Int : 312 ms P-R-T Axes : 071 079 046 degrees QTc Int : 448 ms SINUS TACHYCARDIA OTHERWISE NORMAL ECG WHEN COMPARED WITH ECG OF 31-DEC-2017 10:52, VENT. RATE HAS INCREASED BY 44 BPM NONSPECIFIC T WAVE ABNORMALITY NOW EVIDENT IN ANTERIOR LEADS Confirmed by JE HUMMEL MD ([id number]) on 03/23/2019 2:03:38 PM Referred By: Confirmed By:JE HUMMEL MD
[2019-03-23 14:33] LABS: ANISOCYTOSIS 1+; MACROCYTOSIS 0; OVALOCYTE 1+; PLATELET ESTIMATE NORMAL
[2019-03-23 14:54] VITALS: BMI 36.1
[2019-03-23] MEDS: LORATADINE 10 MG TABLET PO SCH (17:19)
[2019-03-23] MEDS ORDERED: PT OWN MED DRAWER 7, Y5N ONE ×2 (21:24→21:42)
[2019-03-23] MEDS: MONTELUKAST NA 10 MG TABLET PO SCH (21:28)
[2019-03-23] MEDS ORDERED: MONTELUKAST NA 10 MG TABLET PO SCH (22:00)
[2019-03-24] MEDS: LEVALBUTEROL HCL 0.63 MG/3 ML VIAL.NEB. IH PRN (02:34)
[2019-03-24] MEDS: FLUTICASONE PROP 0.05% 16 GM NASAL SPRAY NS SCH ×3 (02:50→21:02)
[2019-03-24] MEDS: ACETAMINOPHEN 325 MG TABLET (FP) PO PRN (03:34)
[2019-03-24] MEDS: methylPREDNISolone NA SUCC 40 MG/1 ML VIAL IVPUSH SCH ×3 (03:38→18:06)
[2019-03-24] MEDS: ALBUTEROL SO4 2.5/IPRATROPIUM 0.5 INH SOL 3 ML VIAL.NEB. NEB SCH ×4 (07:30→20:00)
--- NOTE | 2019-03-24 08:53 | PN ---
Physical Exam: SUBJECTIVE: Patient seen and examined at the bedside. tells me she feels worse today, having dizziness. upset. reassured her that we are treating her asthma and keeping her safe. refusing lovenox OBJECTIVE: start mucinex and azithromycin Patient is a 33 year old female with a significant past medical history moderate persistent asthma, left shoulder impingement, seasonal allergies, and PCOS. Patient presents to [facility] with shortness of breath, wheezing, productive mucus since Tuesday. She was sent to urgent care and referred to the ED for further management. She is being admitted for acute asthma exacerbation. On exam patient sitting up in bed, speaking in full sentences, not showing signs of respiratory compromise. Not a diabetic, on metformin for PCOS. Vital Signs Period Temp Pulse Resp BP Sys/Stokes Pulse Ox Last 24 Hr 97.8 F-98.5 F 74-118 18-20 100-116/56-66 94-94 GENERAL: The patient is awake, alert, and fully oriented, in no acute distress. HEAD: Normal with no signs of trauma. EYES: PERRL, extraocular movements intact, sclera anicteric, conjunctiva clear. No ptosis. ENT: Ears normal, nares patent, oropharynx clear without exudates, moist mucous membranes. NECK: Trachea midline, full range of motion, supple. LUNGS: mild expiratory wheezing mostly of right lung, upper left lobe with mild wheezing. tolerating room air. HEART: Regular rate and rhythm ABDOMEN: Soft, nontender, nondistended, normoactive bowel sounds EXTREMITIES: no edema. NEUROLOGICAL: Normal speech, gait not observed. Laboratory Results - last 24 hr 03/22/19 03/23/19 03/23/19 07:15 09:20 09:20 WBC 17.9 H RBC 4.60 Hgb 13.1 Hct 39.7 MCV 86.3 MCH 28.5 MCHC 33.0 RDW 13.9 Plt Count 334 MPV 8.5 Absolute Neuts (auto) 16.6 H Neutrophils % 93.1 H Neutrophils % (Manual) 87.4 H Band Neutrophils % 4.9 Lymphocytes % 5.6 L Lymphocytes % (Manual) 4.8 L D Monocytes % 1.2 L Monocytes % (Manual) 1 L D Eosinophils % 0.0 D Eosinophils % (Manual) 0.0 D Basophils % 0.1 Basophils % (Manual) 0.0 Myelocytes % (Man) 0 Promyelocytes % (Man) 0 Blast Cells % (Manual) 0 Nucleated RBC % 0 Metamyelocytes 0 Hypochromia 0 Platelet Estimate Normal Polychromasia 1+ Poikilocytosis 1+ Anisocytosis 1+ Microcytosis 1+ Macrocytosis 0 Spherocytes 2+ Ovalocytes 1+ Sodium 139 Potassium 4.2 Chloride 108 H Carbon Dioxide 23 Anion Gap 8 BUN 9.6 Creatinine 0.8 Est GFR (CKD-EPI)AfAm 113.86 Est GFR (CKD-EPI)NonAf 98.24 Random Glucose 150 H Hemoglobin A1c % Calcium 9.6 Magnesium 2.8 H Total Bilirubin 0.3 AST 15 ALT 40 Alkaline Phosphatase 97 Total Protein 7.7 Albumin 3.9 Opiates Screen Negative Methadone Screen Negative Barbiturate Screen Negative Phencyclidine Screen Negative Ur Amphetamines Screen Negative MDMA (Ecstasy) Screen Negative Benzodiazepines Screen Negative Cocaine Screen Negative U Marijuana (THC) Screen Negative 03/23/19 09:20 WBC RBC Hgb Hct MCV MCH MCHC RDW Plt Count MPV Absolute Neuts (auto) Neutrophils % Neutrophils % (Manual) Band Neutrophils % Lymphocytes % Lymphocytes % (Manual) Monocytes % Monocytes % (Manual) Eosinophils % Eosinophils % (Manual) Basophils % Basophils % (Manual) Myelocytes % (Man) Promyelocytes % (Man) Blast Cells % (Manual) Nucleated RBC % Metamyelocytes Hypochromia Platelet Estimate Polychromasia Poikilocytosis Anisocytosis Microcytosis Macrocytosis Spherocytes Ovalocytes Sodium Potassium Chloride Carbon Dioxide Anion Gap BUN Creatinine Est GFR (CKD-EPI)AfAm Est GFR (CKD-EPI)NonAf Random Glucose Hemoglobin A1c % 5.6 Calcium Magnesium Total Bilirubin AST ALT Alkaline Phosphatase Total Protein Albumin Opiates Screen Methadone Screen Barbiturate Screen Phencyclidine Screen Ur Amphetamines Screen MDMA (Ecstasy) Screen Benzodiazepines Screen Cocaine Screen U Marijuana (THC) Screen Active Medications Generic Name Dose Route Start Last Admin Trade Name Freq PRN Reason Stop Dose Admin Acetaminophen 650 mg 03/22/19 20:46 03/24/19 03:34 Tylenol - PO 650 mg Q6H PRN Administration PAIN LEVEL 4 - 6 Albuterol/Ipratropium 1 amp 03/23/19 12:00 03/23/19 20:29 Duoneb - NEB 1 amp RQID GILDA Administration Enoxaparin Sodium 40 mg 03/23/19 10:00 03/23/19 09:59 Lovenox - SQ Not Given DAILY GILDA Fluticasone Propionate 1 spray 03/23/19 10:00 03/24/19 02:50 Flonase - NS 1 spray BID GILDA Administration Sodium Chloride 1,000 mls @ 75 mls/hr 03/23/19 08:15 03/23/19 08:12 Normal Saline - IV 75 mls/hr ASDIR GILDA Administration Levalbuterol HCl 0.63 mg 03/23/19 11:04 03/24/19 02:34 Xopenex IH 0.63 mg Q1H PRN Administration ASTHMA Loratadine 10 mg 03/23/19 16:45 03/23/19 17:19 Claritin - PO 10 mg DAILY GILDA Administration Melatonin 10 mg 03/23/19 01:30 03/23/19 21:27 Melatonin PO 10 mg HS GILDA Administration Methylprednisolone Sodium Succinate 40 mg 03/22/19 21:00 03/24/19 03:38 Solu-Medrol - IVPUSH 40 mg Q6H-IV GILDA Administration Montelukast Sodium 10 mg 03/22/19 22:00 03/23/19 21:28 Singulair - PO 10 mg HS GILDA Administration Pantoprazole Sodium 40 mg 03/23/19 10:00 03/23/19 09:57 Protonix - PO 40 mg DAILY GILDA Administration ASSESSMENT/PLAN: Problem List - Problems (1) Asthma Assessment/Plan: Bronchial asthma exacerbation. on nebs, xopenex, solumedrol taper tolerating room air, stable oxygen start on trial of azithromycin added mucinex pulmonary evaluation appreciated Code(s): J45.909 - UNSPECIFIED ASTHMA, UNCOMPLICATED Qualifiers: Asthma severity: moderate Asthma persistence: unspecified Asthma complication type: with acute exacerbation Qualified Code(s): J45.901 - Unspecified asthma with (acute) exacerbation (2) Obesity (BMI 30-39.9) Assessment/Plan: weight loss encouraged Code(s): E66.9 - OBESITY, UNSPECIFIED (3) Prophylactic measure Assessment/Plan: ns at 75cc monitor electrolytes full code ambulation encouraged Code(s): Z29.9 - ENCOUNTER FOR PROPHYLACTIC MEASURES, UNSPECIFIED Visit type - Emergency Visit Emergency Visit: Yes ED Registration Date: 03/22/19 Care time: The patient presented to the Emergency Department on the above date and was hospitalized for further evaluation of their emergent condition. - New Patient This patient is new to me today: No - Critical Care Critical Care patient: No - Discharge Referral Referred to [facility] Med P.[facility] No
[2019-03-24 08:57] LABS: BASO % 0.1 % (0-2.0); HEMATOCRIT 37.4 % (32.4-45.2); HEMOGLOBIN 12.4 GM/dL (10.7-15.3); LYMPH % 7.6 % (8-40); MCH 28.5 pg (25.7-33.7); MCHC 33.2 g/dl (32.0-36.0); MEAN CELL VOLUME 85.9 fl (80-96); MEAN PLT VOLUME 8.5 fl (7.5-11.1); MONO % 2.6 % (3.8-10.2); NEUT % 89.7 % (42.8-82.8); PLATELET COUNT 325 K/MM3 (134-434); RBC 4.35 M/mm3 (3.60-5.2); RDW 14.1 % (11.6-15.6); WHITE BLOOD COUNT 17.3 K/mm3 (4.0-10.0)
[2019-03-24 09:22] LABS: ALBUMIN 3.6 g/dl (3.4-5.0); BILIRUBIN,TOTAL 0.2 mg/dL (0.2-1); BLOOD UREA NITROGEN 15.5 mg/dL (7-18); CALCIUM 9.5 mg/dL (8.5-10.1); CREATININE 0.8 mg/dL (0.55-1.3); MAGNESIUM 2.6 mg/dL (1.8-2.4); POTASSIUM 4.7 mmol/L (3.5-5.1); TOT PROT 7.1 g/dl (6.4-8.2)
--- NOTE | 2019-03-24 10:01 | PN ---
Progress Note, Physician History of Present Illness: stable doing well no new issues - Current Medication List Current Medications: Active Medications Acetaminophen (Tylenol -) 650 mg PO Q6H PRN PRN Reason: PAIN LEVEL 4 - 6 Last Admin: 03/24/19 03:34 Dose: 650 mg Albuterol/Ipratropium (Duoneb -) 1 amp NEB RQID [facility] Last Admin: 03/24/19 07:30 Dose: 1 amp Azithromycin (Zithromax) 500 mg PO DAILY [facility] Stop: 03/26/19 10:01 Fluticasone Propionate (Flonase -) 1 spray NS BID [facility] Last Admin: 03/24/19 02:50 Dose: 1 spray Guaifenesin (Mucinex -) 600 mg PO BID [facility] Sodium Chloride (Normal Saline -) 1,000 mls @ 75 mls/hr IV ASDIR [facility] Last Admin: 03/23/19 08:12 Dose: 75 mls/hr Levalbuterol HCl (Xopenex) 0.63 mg IH Q1H PRN PRN Reason: ASTHMA Last Admin: 03/24/19 02:34 Dose: 0.63 mg Loratadine (Claritin -) 10 mg PO DAILY [facility] Last Admin: 03/23/19 17:19 Dose: 10 mg Melatonin (Melatonin) 10 mg PO HS [facility] Last Admin: 03/23/19 21:27 Dose: 10 mg Metformin HCl (Glucophage -) 500 mg PO HS [facility] Methylprednisolone Sodium Succinate (Solu-Medrol -) 40 mg IVPUSH Q6H-IV [facility] Last Admin: 03/24/19 03:38 Dose: 40 mg Montelukast Sodium (Singulair -) 10 mg PO HS [facility] Last Admin: 03/23/19 21:28 Dose: 10 mg Pantoprazole Sodium (Protonix -) 40 mg PO DAILY [facility] Last Admin: 03/23/19 09:57 Dose: 40 mg - Objective Vital Signs: Vital Signs Temperature 97.8 F 03/24/19 06:00 Pulse Rate 97 H 03/24/19 06:00 Respiratory Rate 20 03/24/19 06:00 Blood Pressure 113/66 03/24/19 06:00 O2 Sat by Pulse Oximetry (%) 94 L 03/23/19 21:00 Constitutional: Yes: No Distress, Calm Cardiovascular: Yes: S1, S2 Respiratory: Yes: Regular, CTA Bilaterally Gastrointestinal: Yes: Normal Bowel Sounds, Soft Musculoskeletal: Yes: WNL Extremities: Yes: WNL Neurological: Yes: Alert, Oriented Psychiatric: Yes: Alert, Oriented Labs: CBC, BMP 03/24/19 07:55 03/24/19 07:55 Assessment/Plan 33 F h/o moderate persistent asthma poorly controlled d/t medicaiton non- compliance, presents with LORI 2/2 ?URI. Patient moving air, however still having persistent wheezing. exacerbation of asthma sob resp difficulty obesity plan continue current mgmt incentive slim rest as per the team
[2019-03-24] MEDS: AZITHROMYCIN 500 MG TABLET PO SCH (10:51)
[2019-03-24] MEDS: PANTOPRAZOLE 40 MG TABLET PO SCH (10:51)
[2019-03-24] MEDS: LORATADINE 10 MG TABLET PO SCH (11:38)
--- NOTE | 2019-03-24 13:32 | PN ---
Progress Note (short form) - Note Progress Note: PULMONARY LYING SUPINE STATES SHE CAN'T WALK WAS WALKING EARLIER THEN HAD A NEB TREATMENT AND NOW IS LYING IN BED VSS/AFEBRILE ANICTERIC B/L WHEEZES PRESENT BUT IMPROVED S1S2 BS+ OBESE NO EDEMA LABS NOTED INFLU NEGATIVE CXR REVIEWED IMP B.ASTHMA/? ACUTE BRONCHITIS GERD FATTY LIVER ANXIETY DISORDER PLAN CHANGE SOLUMEDROL TO Q8 ADD SYMBICORT BID XOPENEX PRN DUONEB QID SINGULAIR/CHECK PEAK FLOW CONSIDER PSYCH CONSULT R CHRIS LUNDBERG Problem List - Problems (1) Asthma Code(s): J45.909 - UNSPECIFIED ASTHMA, UNCOMPLICATED Qualifiers: Asthma severity: moderate Asthma persistence: unspecified Asthma complication type: with acute exacerbation Qualified Code(s): J45.901 - Unspecified asthma with (acute) exacerbation
[2019-03-24] MEDS: guaiFENesin 600 MG TABLET.ER (FP) PO SCH ×2 (14:14→21:04)
--- NOTE | 2019-03-24 15:56 | CON.CARD ---
Consult Consult Specialty:: Cardiology Reason for Consultation:: Chest pain - History of Present Illness Chief Complaint: Chest Pain History of Present Illness: This is a 33 year old female with a PMH of moderate persistent asthma, multiple allergies, and Poly Cystic Ovary Syndrome. She presented with an acute asthma exacerbation triggered by dog dander exposure. She developed brief, sharp, mild sternal chest pain that was non radiating and not associated with exertion. Troponin negative x2 EKG 03/22/2019 Sinus tachycardia at 134 BPM with normal intervals, normal axis, RSR' in V1 and V2, and NSSTTW changes. No change from baseline. - Past Medical History PAINT DIPPER: No: Alzheimer's Cardio/Vascular: No: AFIB Pulmonary: Yes: Asthma Gastrointestinal: Yes: GERD, Other (Fatty Liver Disease) Hepatobiliary: No: Cirrhosis Renal/: No: Renal Failure ...LMP: 12/30/18 Psych: Yes: Other (nervous tic) - Alcohol/Substance Use Hx Alcohol Use: No History of Substance Use: reports: None - Smoking History Smoking history: Never smoked Have you smoked in the past 12 months: No - Social History ADL: Independent Home Medications - Allergies Allergies/Adverse Reactions: Allergies Allergy/AdvReac Type Severity Reaction Status Date / Time No Known Allergies Allergy Verified 03/22/19 14:20 - Home Medications Home Medications: Ambulatory Orders Montelukast Na [Singulair -] 10 mg PO HS 03/08/14 Albuterol Sulfate Inhaler - [Ventolin HFA Inhaler -] 1 - 2 inh PO DAILY PRN 12/12 metFORMIN HCL [Metformin HCl] 1,000 mg PO BID 12/05/17 Budesonide/Formeterol Fumarate [SYMBICORT 160/4.5mcg -] 1 inh PO DAILY 01/01/19 Hydrocodone/Acetaminophen [Hydrocodone-Acetamin 5-325 mg] 1 each PO Q6H #20 tablet MDD 4 01/03/19 Vital Signs: Vital Signs Temperature 98.4 F 03/24/19 14:47 Pulse Rate 94 H 03/24/19 14:47 Respiratory Rate 20 03/24/19 14:47 Blood Pressure 118/76 03/24/19 14:47 O2 Sat by Pulse Oximetry (%) 92 L 03/24/19 10:05 Constitutional: Yes: Well Nourished Eyes: Yes: WNL HENT: Yes: WNL Neck: Yes: WNL Respiratory: Yes: Wheezes (Bilateral) Gastrointestinal: Yes: Soft Cardiovascular: Yes: Regular Rate and Rhythm Heart Sounds: Yes: S1, S2 Edema: No Neurological: Yes: Alert, Oriented - Other Data Labs, Other Data: CBC, BMP 03/24/19 07:55 03/24/19 07:55 Troponin, BNP 03/24/19 12:05 Troponin I < 0.02 Troponin, BNP 03/24/19 12:05 Troponin I < 0.02 Assessment/Plan 33 year old female with a PMH of moderate persistent asthma, multiple allergies , and Poly Cystic Ovary Syndrome. She presented with an acute asthma exacerbation triggered by dog dander exposure. She developed brief, sharp, mild sternal chest pain that was non radiating and not associated with exertion. Troponin negative x2 EKG 03/22/2019 Sinus tachycardia at 134 BPM with normal intervals, normal axis, RSR' in V1 and V2, and NSSTTW changes. No change from baseline. Chest Pain Atypical No EKG of enzyme evidence for a coronary syndrome. Would obtain an echocardiogram to assess for pericardial involvement
[2019-03-24] MEDS: SODIUM CHLORIDE 1,000 ML IV SCH (18:06)
[2019-03-24] MEDS: BUDESONIDE/FORMETEROL FUMARATE 80/4.5 mcg INHALER IH SCH ×2 (18:06→21:02)
[2019-03-24] MEDS: MELATONIN 5 MG TABLETS PO SCH (21:03)
[2019-03-24] MEDS: MONTELUKAST NA 10 MG TABLET PO SCH (21:04)
[2019-03-24] MEDS: metFORMIN HCL 500 MG TABLET (FP) PO SCH (21:04)
[2019-03-25] MEDS: LEVALBUTEROL HCL 0.63 MG/3 ML VIAL.NEB. IH PRN ×3 (01:09→23:40)
[2019-03-25] MEDS: methylPREDNISolone NA SUCC 40 MG/1 ML VIAL IVPUSH SCH ×3 (01:21→17:40)
[2019-03-25] MEDS: ACETAMINOPHEN 325 MG TABLET (FP) PO PRN ×2 (02:52→23:18)
[2019-03-25] MEDS: ALBUTEROL SO4 2.5/IPRATROPIUM 0.5 INH SOL 3 ML VIAL.NEB. NEB SCH ×4 (07:30→20:05)
[2019-03-25 08:53] LABS: BASO % 0.2 % (0-2.0); EOS % 0.1 % (0-4.5); HEMATOCRIT 41.9 % (32.4-45.2); HEMOGLOBIN 13.9 GM/dL (10.7-15.3); MCH 28.9 pg (25.7-33.7); MCHC 33.2 g/dl (32.0-36.0); MEAN CELL VOLUME 86.9 fl (80-96); MEAN PLT VOLUME 8.4 fl (7.5-11.1); MONO % 3.1 % (3.8-10.2); NEUT % 85.6 % (42.8-82.8); PLATELET COUNT 364 K/MM3 (134-434); RBC 4.82 M/mm3 (3.60-5.2); RDW 14.2 % (11.6-15.6); WHITE BLOOD COUNT 17.4 K/mm3 (4.0-10.0)
[2019-03-25 09:21] LABS: ALBUMIN 3.9 g/dl (3.4-5.0); BILIRUBIN,TOTAL 0.3 mg/dL (0.2-1); BLOOD UREA NITROGEN 15.8 mg/dL (7-18); CALCIUM 9.4 mg/dL (8.5-10.1); CREATININE 0.8 mg/dL (0.55-1.3); POTASSIUM 4.3 mmol/L (3.5-5.1); TOT PROT 7.6 g/dl (6.4-8.2)
[2019-03-25] MEDS ORDERED: PT OWN MED DRAWER 7, Y5N ONE ×2 (09:51→14:31)
[2019-03-25 10:08] LABS: ANISOCYTOSIS 1+; MACROCYTOSIS 0; PLATELET ESTIMATE NORMAL
--- NOTE | 2019-03-25 10:26 | PN ---
Physical Exam: SUBJECTIVE: Patient seen and examined at the bedside. tells me that she feels better today. she is able to ambulate in the room without assistance from staff or without assistive devices. Patient told PT therapist that I asked her not to ambulate, however, I clarified this with patient. I want her to ambulate ad yuliya and participate with physical therapy yancy since I was the one that ordered PT for her. She denies any dizziness, denies shortness of breath. Yesterday she had right sided chest pain which is now resolved. She was evaluated by the mechanical project engineer who recommended an echo. Full exam done at the bedside. all questions answered. She offers no other complaints. Pre and post to be performed prior to discharge. OBJECTIVE: Patient is a 33 year old female with a significant past medical history moderate persistent asthma, left shoulder impingement, seasonal allergies, and PCOS. Patient presents to [facility] with shortness of breath, wheezing, productive mucus since Tuesday. She was sent to urgent care and referred to the ED for further management. She is being admitted for acute asthma exacerbation. On exam patient sitting up in bed, speaking in full sentences, not showing signs of respiratory compromise. Not a diabetic, on metformin for PCOS. Vital Signs Period Temp Pulse Resp BP Sys/Stokes Pulse Ox Last 24 Hr 97.9 F-98.4 F 84-94 20-22 112-126/70-76 95 GENERAL: The patient is awake, alert, and fully oriented, in no acute distress. HEAD: Normal with no signs of trauma. EYES: PERRL, extraocular movements intact, sclera anicteric, conjunctiva clear. No ptosis. ENT: Ears normal, nares patent, oropharynx clear without exudates, moist mucous membranes. NECK: Trachea midline, full range of motion, supple. LUNGS: mild expiratory wheezing mostly of right lung, upper left lobe with mild wheezing. tolerating room air. HEART: Regular rate and rhythm ABDOMEN: Soft, nontender, nondistended, normoactive bowel sounds EXTREMITIES: no edema. NEUROLOGICAL: Normal speech, gait steady Laboratory Results - last 24 hr 03/24/19 03/24/19 03/25/19 12:05 17:36 08:25 WBC 17.4 H RBC 4.82 Hgb 13.9 Hct 41.9 MCV 86.9 MCH 28.9 MCHC 33.2 RDW 14.2 Plt Count 364 MPV 8.4 Absolute Neuts (auto) 14.9 H Neutrophils % 85.6 H Neutrophils % (Manual) 85.9 H Band Neutrophils % 0.0 Lymphocytes % 11.0 D Lymphocytes % (Manual) 10.1 D Monocytes % 3.1 L Monocytes % (Manual) 1 L Eosinophils % 0.1 D Eosinophils % (Manual) 0.0 Basophils % 0.2 Basophils % (Manual) 0.0 Myelocytes % (Man) 0 Promyelocytes % (Man) 0 Blast Cells % (Manual) 0 Nucleated RBC % 0 Metamyelocytes 0 Hypochromia 0 Platelet Estimate Normal Polychromasia 1+ Poikilocytosis 1+ Anisocytosis 1+ Microcytosis 1+ Macrocytosis 0 Sodium Potassium Chloride Carbon Dioxide Anion Gap BUN Creatinine Est GFR (CKD-EPI)AfAm Est GFR (CKD-EPI)NonAf Random Glucose Calcium Total Bilirubin AST ALT Alkaline Phosphatase Troponin I < 0.02 < 0.02 Total Protein Albumin 03/25/19 08:25 WBC RBC Hgb Hct MCV MCH MCHC RDW Plt Count MPV Absolute Neuts (auto) Neutrophils % Neutrophils % (Manual) Band Neutrophils % Lymphocytes % Lymphocytes % (Manual) Monocytes % Monocytes % (Manual) Eosinophils % Eosinophils % (Manual) Basophils % Basophils % (Manual) Myelocytes % (Man) Promyelocytes % (Man) Blast Cells % (Manual) Nucleated RBC % Metamyelocytes Hypochromia Platelet Estimate Polychromasia Poikilocytosis Anisocytosis Microcytosis Macrocytosis Sodium 138 Potassium 4.3 Chloride 104 Carbon Dioxide 26 Anion Gap 7 L BUN 15.8 Creatinine 0.8 Est GFR (CKD-EPI)AfAm 113.86 Est GFR (CKD-EPI)NonAf 98.24 Random Glucose 116 H Calcium 9.4 Total Bilirubin 0.3 AST 8 L ALT 40 Alkaline Phosphatase 92 Troponin I Total Protein 7.6 Albumin 3.9 Active Medications Generic Name Dose Route Start Last Admin Trade Name Freq PRN Reason Stop Dose Admin Acetaminophen 650 mg 03/22/19 20:46 03/25/19 02:52 Tylenol - PO 650 mg Q6H PRN Administration PAIN LEVEL 4 - 6 Albuterol/Ipratropium 1 amp 03/23/19 12:00 03/25/19 07:30 Duoneb - NEB 1 amp RQID GILDA Administration Azithromycin 500 mg 03/24/19 10:00 03/24/19 10:51 Zithromax PO 03/26/19 10:01 500 mg DAILY GILDA Administration Budesonide/Formoterol Fumarate 2 puff 03/24/19 13:30 03/24/19 21:02 Symbicort 80/4.5mcg - IH 2 puff BID GILDA Administration Fluticasone Propionate 1 spray 03/23/19 10:00 03/24/19 21:02 Flonase - NS 1 spray BID GILDA Administration Guaifenesin 600 mg 03/24/19 10:00 03/24/19 21:04 Mucinex - PO 600 mg BID GILDA Administration Sodium Chloride 1,000 mls @ 75 mls/hr 03/23/19 08:15 03/24/19 18:06 Normal Saline - IV 75 mls/hr ASDIR GILDA Administration Levalbuterol HCl 0.63 mg 03/23/19 11:04 03/25/19 02:58 Xopenex IH 0.63 mg Q1H PRN Administration ASTHMA Loratadine 10 mg 03/23/19 16:45 03/24/19 11:38 Claritin - PO Not Given DAILY GILDA Melatonin 10 mg 03/23/19 01:30 03/24/19 21:03 Melatonin PO 10 mg HS GILDA Administration Metformin HCl 500 mg 03/24/19 22:00 03/24/19 21:04 Glucophage - PO 500 mg HS GILDA Administration Methylprednisolone Sodium Succinate 40 mg 03/24/19 18:00 03/25/19 01:21 Solu-Medrol - IVPUSH 40 mg Q8H-IV GILDA Administration Montelukast Sodium 10 mg 03/22/19 22:00 03/24/19 21:04 Singulair - PO 10 mg HS GILDA Administration Pantoprazole Sodium 40 mg 03/23/19 10:00 03/24/19 10:51 Protonix - PO 40 mg DAILY GILDA Administration ASSESSMENT/PLAN: Problem List - Problems (1) Asthma Assessment/Plan: Bronchial asthma exacerbation. on nebs, xopenex, solumedrol taper tolerating room air, stable oxygen saturations at rest. for a pre and post today. start on trial of azithromycin for 5 days total, on day 2 added mucinex which patient states is helping pulmonary evaluation appreciated Code(s): J45.909 - UNSPECIFIED ASTHMA, UNCOMPLICATED Qualifiers: Asthma severity: moderate Asthma persistence: unspecified Asthma complication type: with acute exacerbation Qualified Code(s): J45.901 - Unspecified asthma with (acute) exacerbation (2) Obesity (BMI 30-39.9) Assessment/Plan: weight loss encouraged Code(s): E66.9 - OBESITY, UNSPECIFIED (3) Chest pain Assessment/Plan: c/o of chest pain, right sided yesterday with mild shortness of breath. evaluated by cardiology EKG 03/22/2019 Sinus tachycardia at 134 BPM with normal intervals troponins negative x 3 for an echo in a.m. Code(s): R07.9 - CHEST PAIN, UNSPECIFIED (4) Ear ache Assessment/Plan: resolved viewed by otoscope at the bedside after pt c/o of left ear pain no acute findings except for mild redness behind right eardrum, no drainage, ear drum intact, no wax. monitor, and can see ENT as outpatient Code(s): H92.09 - OTALGIA, UNSPECIFIED EAR (5) Prophylactic measure Assessment/Plan: ns at 75cc monitor electrolytes full code ambulation encouraged Code(s): Z29.9 - ENCOUNTER FOR PROPHYLACTIC MEASURES, UNSPECIFIED Visit type - Emergency Visit Emergency Visit: Yes ED Registration Date: 03/22/19 Care time: The patient presented to the Emergency Department on the above date and was hospitalized for further evaluation of their emergent condition. - New Patient This patient is new to me today: No - Critical Care Critical Care patient: No - Discharge Referral Referred to [facility] Med P.C.: No
--- NOTE | 2019-03-25 10:42 | PN ---
Progress Note, Physician History of Present Illness: stable no new issues for echo on tuesday - Current Medication List Current Medications: Active Medications Acetaminophen (Tylenol -) 650 mg PO Q6H PRN PRN Reason: PAIN LEVEL 4 - 6 Last Admin: 03/25/19 02:52 Dose: 650 mg Albuterol/Ipratropium (Duoneb -) 1 amp NEB RQID [facility] Last Admin: 03/25/19 07:30 Dose: 1 amp Azithromycin (Zithromax) 500 mg PO DAILY [facility] Stop: 03/26/19 10:01 Last Admin: 03/24/19 10:51 Dose: 500 mg Budesonide/Formoterol Fumarate (Symbicort 80/4.5mcg -) 2 puff IH BID [facility] Last Admin: 03/24/19 21:02 Dose: 2 puff Fluticasone Propionate (Flonase -) 1 spray NS BID [facility] Last Admin: 03/24/19 21:02 Dose: 1 spray Guaifenesin (Mucinex -) 600 mg PO BID [facility] Last Admin: 03/24/19 21:04 Dose: 600 mg Sodium Chloride (Normal Saline -) 1,000 mls @ 75 mls/hr IV ASDIR [facility] Last Admin: 03/24/19 18:06 Dose: 75 mls/hr Levalbuterol HCl (Xopenex) 0.63 mg IH Q1H PRN PRN Reason: ASTHMA Last Admin: 03/25/19 02:58 Dose: 0.63 mg Loratadine (Claritin -) 10 mg PO DAILY [facility] Last Admin: 03/24/19 11:38 Dose: Not Given Melatonin (Melatonin) 10 mg PO HS [facility] Last Admin: 03/24/19 21:03 Dose: 10 mg Metformin HCl (Glucophage -) 500 mg PO HS [facility] Last Admin: 03/24/19 21:04 Dose: 500 mg Methylprednisolone Sodium Succinate (Solu-Medrol -) 40 mg IVPUSH Q8H-IV [facility] Last Admin: 03/25/19 01:21 Dose: 40 mg Montelukast Sodium (Singulair -) 10 mg PO HS [facility] Last Admin: 03/24/19 21:04 Dose: 10 mg Pantoprazole Sodium (Protonix -) 40 mg PO DAILY [facility] Last Admin: 03/24/19 10:51 Dose: 40 mg Tetrahydrozoline HCl (Visine -) 1 drop OD QID GILDA - Objective Vital Signs: Vital Signs Temperature 98 F 03/25/19 06:08 Pulse Rate 84 03/25/19 06:08 Respiratory Rate 20 03/25/19 06:08 Blood Pressure 112/74 03/25/19 06:08 O2 Sat by Pulse Oximetry (%) 95 03/24/19 21:00 Constitutional: Yes: No Distress, Calm Cardiovascular: Yes: S1, S2 Respiratory: Yes: Regular, Wheezes Gastrointestinal: Yes: Normal Bowel Sounds, Soft Musculoskeletal: Yes: WNL Extremities: Yes: WNL Neurological: Yes: Alert, Oriented Psychiatric: Yes: Alert, Oriented Labs: CBC, BMP 03/25/19 08:25 03/25/19 08:25 Assessment/Plan 33 F h/o moderate persistent asthma poorly controlled d/t medicaiton non- compliance, presents with LORI 2/2 ?URI. Patient moving air, however still having persistent wheezing. exacerbation of asthma sob resp difficulty obesity plan continue current mgmt incentive slim rest as per the team
[2019-03-25] MEDS: SODIUM CHLORIDE 1,000 ML IV SCH ×2 (10:45→10:59)
[2019-03-25] MEDS: LORATADINE 10 MG TABLET PO SCH (10:45)
[2019-03-25] MEDS: PANTOPRAZOLE 40 MG TABLET PO SCH (10:45)
[2019-03-25] MEDS: FLUTICASONE PROP 0.05% 16 GM NASAL SPRAY NS SCH ×2 (10:45→21:44)
[2019-03-25] MEDS: guaiFENesin 600 MG TABLET.ER (FP) PO SCH ×2 (10:46→21:42)
[2019-03-25] MEDS: AZITHROMYCIN 500 MG TABLET PO SCH (10:46)
[2019-03-25] MEDS: BUDESONIDE/FORMETEROL FUMARATE 80/4.5 mcg INHALER IH SCH ×2 (10:48→21:44)
--- NOTE | 2019-03-25 12:36 | EKG ---
Test Reason : Blood Pressure : / mmHG Vent. Rate : 104 BPM Atrial Rate : 104 BPM P-R Int : 142 ms QRS Dur : 076 ms QT Int : 326 ms P-R-T Axes : 061 064 008 degrees QTc Int : 428 ms SINUS TACHYCARDIA OTHERWISE NORMAL ECG WHEN COMPARED WITH ECG OF 22-MAR-2019 20:59, NO SIGNIFICANT CHANGE WAS FOUND Confirmed by JE HUMMEL MD ([id number]) on 03/25/2019 12:36:35 PM Referred By: Bobbi MATHIAS Confirmed By:JE HUMMEL MD
[2019-03-25] MEDS: TETRAHYDROZOLINE HCL EYE DROPS OD SCH ×3 (14:33→21:45)
[2019-03-25] MEDS: MELATONIN 5 MG TABLETS PO SCH (21:42)
[2019-03-25] MEDS: MONTELUKAST NA 10 MG TABLET PO SCH (21:42)
[2019-03-25] MEDS: metFORMIN HCL 500 MG TABLET (FP) PO SCH (21:42)
[2019-03-26] MEDS: methylPREDNISolone NA SUCC 40 MG/1 ML VIAL IVPUSH SCH ×3 (01:28→21:42)
[2019-03-26] MEDS: LEVALBUTEROL HCL 0.63 MG/3 ML VIAL.NEB. IH PRN (04:24)
[2019-03-26] MEDS: ACETAMINOPHEN 325 MG TABLET (FP) PO PRN (04:44)
[2019-03-26] MEDS: ALBUTEROL SO4 2.5/IPRATROPIUM 0.5 INH SOL 3 ML VIAL.NEB. NEB SCH ×4 (07:39→20:25)
[2019-03-26 07:52] LABS: BASO % 0.1 % (0-2.0); HEMATOCRIT 38.4 % (32.4-45.2); HEMOGLOBIN 12.7 GM/dL (10.7-15.3); LYMPH % 12.1 % (8-40); MCH 28.5 pg (25.7-33.7); MCHC 33.2 g/dl (32.0-36.0); MEAN CELL VOLUME 85.7 fl (80-96); MEAN PLT VOLUME 8.2 fl (7.5-11.1); NEUT % 84.8 % (42.8-82.8); PLATELET COUNT 322 K/MM3 (134-434); RBC 4.48 M/mm3 (3.60-5.2); RDW 13.9 % (11.6-15.6); WHITE BLOOD COUNT 13.1 K/mm3 (4.0-10.0)
[2019-03-26 08:29] LABS: ALBUMIN 3.4 g/dl (3.4-5.0); BILIRUBIN,TOTAL 0.4 mg/dL (0.2-1); BLOOD UREA NITROGEN 18.3 mg/dL (7-18); CALCIUM 9.4 mg/dL (8.5-10.1); CREATININE 0.7 mg/dL (0.55-1.3); POTASSIUM 4.4 mmol/L (3.5-5.1); TOT PROT 6.7 g/dl (6.4-8.2)
--- NOTE | 2019-03-26 08:36 | PN ---
Progress Note, Physician Chief Complaint: c/o dyspnea with minimal activity. Concerned about requiring O2 and SPO2 being low. Tearful about being from children History of Present Illness: Patient is a 33 year old female with a significant past medical history moderate persistent asthma, left shoulder impingement, seasonal allergies, and PCOS. Patient presents to [facility] with shortness of breath, wheezing, productive mucus since Tuesday. She was sent to urgent care and referred to the ED for further management. She is being admitted for acute asthma exacerbation. On exam patient sitting up in bed, speaking in full sentences, not showing signs of respiratory compromise. Not a diabetic, on metformin for PCOS. - Current Medication List Current Medications: Active Medications Acetaminophen (Tylenol -) 650 mg PO Q6H PRN PRN Reason: PAIN LEVEL 4 - 6 Last Admin: 03/26/19 04:44 Dose: 650 mg Albuterol/Ipratropium (Duoneb -) 1 amp NEB RQID [facility] Last Admin: 03/26/19 07:39 Dose: 1 amp Azithromycin (Zithromax) 500 mg PO DAILY [facility] Stop: 03/26/19 10:01 Last Admin: 03/25/19 10:46 Dose: 500 mg Budesonide/Formoterol Fumarate (Symbicort 80/4.5mcg -) 2 puff IH BID [facility] Last Admin: 03/25/19 21:44 Dose: 2 puff Fluticasone Propionate (Flonase -) 1 spray NS BID [facility] Last Admin: 03/25/19 21:44 Dose: 1 spray Guaifenesin (Mucinex -) 600 mg PO BID [facility] Last Admin: 03/25/19 21:42 Dose: 600 mg Sodium Chloride (Normal Saline -) 1,000 mls @ 75 mls/hr IV ASDIR [facility] Last Admin: 03/25/19 10:59 Dose: 75 mls/hr Levalbuterol HCl (Xopenex) 0.63 mg IH Q1H PRN PRN Reason: ASTHMA Last Admin: 03/26/19 04:24 Dose: 0.63 mg Loratadine (Claritin -) 10 mg PO DAILY [facility] Last Admin: 03/25/19 10:45 Dose: 10 mg Melatonin (Melatonin) 10 mg PO HS [facility] Last Admin: 03/25/19 21:42 Dose: 10 mg Metformin HCl (Glucophage -) 500 mg PO HS [facility] Last Admin: 03/25/19 21:42 Dose: 500 mg Methylprednisolone Sodium Succinate (Solu-Medrol -) 40 mg IVPUSH Q8H-IV [facility] Last Admin: 03/26/19 01:28 Dose: 40 mg Montelukast Sodium (Singulair -) 10 mg PO HS [facility] Last Admin: 03/25/19 21:42 Dose: 10 mg Pantoprazole Sodium (Protonix -) 40 mg PO DAILY [facility] Last Admin: 03/25/19 10:45 Dose: 40 mg Tetrahydrozoline HCl (Visine -) 1 drop OD QID [facility] Last Admin: 03/25/19 21:45 Dose: 1 drop - Objective Vital Signs: Vital Signs Temperature 98.2 F 03/26/19 07:03 Pulse Rate 88 03/26/19 07:03 Respiratory Rate 03/26/19 07:03 Blood Pressure 104/62 03/26/19 07:03 O2 Sat by Pulse Oximetry (%) 96 03/25/19 21:00 Constitutional: Yes: Well Nourished, Anxious, Mild Distress (with dyspnea) Eyes: Yes: WNL, Conjunctiva Clear HENT: Yes: WNL, Atraumatic, Normocephalic Neck: Yes: WNL, Supple, Trachea Midline Cardiovascular: Yes: WNL, Regular Rate and Rhythm, Tachycardia (sinus tachy 110s ) Respiratory: Yes: Diminished (at bases L>R), On Nasal O2, Poor Air Entry, SOB on Exertion, Wheezes (R>L [place]) Gastrointestinal: Yes: WNL, Normal Bowel Sounds ...Rectal Exam: Yes: Deferred Genitourinary: Yes: WNL Breast(s): Yes: WNL Musculoskeletal: Yes: WNL Extremities: Yes: WNL Edema: No Peripheral Pulses WNL: Yes Peripheral Pulses: Left Radial: 2+, Right Radial: 2+, Left Doralis Pedis: 2+, Right Dorsalis Pedis: 2+, Left Femoral: 2+, Right Femoral: 2+ Integumentary: Yes: WNL Neurological: Yes: WNL, Alert, Oriented ...Motor Strength: WNL Psychiatric: Yes: WNL Labs: CBC, BMP 03/26/19 07:20 03/26/19 07:20 - ....Imaging Chest X-ray: Image Reviewed (No effusion or infiltrates) Problem List - Problems (1) Asthma exacerbation Assessment/Plan: pulm following c/w solumedrol at decreased dose q 12h c/w singular, mucinex c/w inhaled bronchodilators standing and PRN completed course of abx encourage use of incentive spirometry ambulation, low SPO2 most likely r/t atelectasis if clinically improved can convert to prednisone tomorrow and continue taper as outpatient Code(s): J45.901 - UNSPECIFIED ASTHMA WITH (ACUTE) EXACERBATION (2) Tachycardia with heart rate 100-120 beats per minute Assessment/Plan: asymptomatic tachycardia inhaler bronchodilators could be contributing to tachycardia troponins negative x 2 seen by cardiology pending TTE Code(s): R00.0 - TACHYCARDIA, UNSPECIFIED (3) Prophylactic measure Assessment/Plan: FEN Fluids: adequate PO intake Electrolytes: replete as indicated Nutrition: regular diet DVT prophylaxis: oob, ambulation Dispo: continues to require inpatient care. Full code discharge planning to home Code(s): Z29.9 - ENCOUNTER FOR PROPHYLACTIC MEASURES, UNSPECIFIED (4) Chest pain Assessment/Plan: resolved TTE pending Code(s): R07.9 - CHEST PAIN, UNSPECIFIED (5) Ear ache Assessment/Plan: resolved Code(s): H92.09 - OTALGIA, UNSPECIFIED EAR (6) Obesity (BMI 30-39.9) Assessment/Plan: counseled on weight loss Code(s): E66.9 - OBESITY, UNSPECIFIED Visit type - Emergency Visit Emergency Visit: Yes ED Registration Date: 03/22/19 Care time: The patient presented to the Emergency Department on the above date and was hospitalized for further evaluation of their emergent condition. - New Patient This patient is new to me today: Yes Date on this admission: 03/26/19 - Critical Care Critical Care patient: No - Discharge Referral Referred to [facility] Med P.C.: No
[2019-03-26] MEDS ORDERED: PT OWN MED DRAWER 7, Y5N ONE ×2 (09:16→21:33)
[2019-03-26] MEDS: AZITHROMYCIN 500 MG TABLET PO SCH (09:17)
[2019-03-26] MEDS: PANTOPRAZOLE 40 MG TABLET PO SCH (09:17)
[2019-03-26] MEDS: SODIUM CHLORIDE 1,000 ML IV SCH (09:17)
[2019-03-26] MEDS: guaiFENesin 600 MG TABLET.ER (FP) PO SCH ×2 (09:17→21:42)
[2019-03-26] MEDS: LORATADINE 10 MG TABLET PO SCH (09:17)
--- NOTE | 2019-03-26 09:18 | PN ---
Progress Note, Physician History of Present Illness: still feeling sob feels very weak going for echo today - Current Medication List Current Medications: Active Medications Acetaminophen (Tylenol -) 650 mg PO Q6H PRN PRN Reason: PAIN LEVEL 4 - 6 Last Admin: 03/26/19 04:44 Dose: 650 mg Albuterol/Ipratropium (Duoneb -) 1 amp NEB RQID [facility] Last Admin: 03/26/19 07:39 Dose: 1 amp Azithromycin (Zithromax) 500 mg PO DAILY [facility] Stop: 03/26/19 10:01 Last Admin: 03/25/19 10:46 Dose: 500 mg Budesonide/Formoterol Fumarate (Symbicort 80/4.5mcg -) 2 puff IH BID [facility] Last Admin: 03/25/19 21:44 Dose: 2 puff Fluticasone Propionate (Flonase -) 1 spray NS BID [facility] Last Admin: 03/25/19 21:44 Dose: 1 spray Guaifenesin (Mucinex -) 600 mg PO BID [facility] Last Admin: 03/25/19 21:42 Dose: 600 mg Sodium Chloride (Normal Saline -) 1,000 mls @ 75 mls/hr IV ASDIR [facility] Last Admin: 03/25/19 10:59 Dose: 75 mls/hr Levalbuterol HCl (Xopenex) 0.63 mg IH Q1H PRN PRN Reason: ASTHMA Last Admin: 03/26/19 04:24 Dose: 0.63 mg Loratadine (Claritin -) 10 mg PO DAILY [facility] Last Admin: 03/25/19 10:45 Dose: 10 mg Melatonin (Melatonin) 10 mg PO HS [facility] Last Admin: 03/25/19 21:42 Dose: 10 mg Metformin HCl (Glucophage -) 500 mg PO HS [facility] Last Admin: 03/25/19 21:42 Dose: 500 mg Methylprednisolone Sodium Succinate (Solu-Medrol -) 40 mg IVPUSH Q8H-IV [facility] Last Admin: 03/26/19 01:28 Dose: 40 mg Montelukast Sodium (Singulair -) 10 mg PO HS [facility] Last Admin: 03/25/19 21:42 Dose: 10 mg Pantoprazole Sodium (Protonix -) 40 mg PO DAILY [facility] Last Admin: 03/25/19 10:45 Dose: 40 mg Tetrahydrozoline HCl (Visine -) 1 drop OD QID [facility] Last Admin: 03/25/19 21:45 Dose: 1 drop - Objective Vital Signs: Vital Signs Temperature 98.2 F 03/26/19 07:03 Pulse Rate 88 03/26/19 07:03 Respiratory Rate 20 03/26/19 07:03 Blood Pressure 104/62 03/26/19 07:03 O2 Sat by Pulse Oximetry (%) 96 03/25/19 21:00 Constitutional: Yes: Anxious, Mild Distress, Obese, Other (agitated) Eyes: Yes: Conjunctiva Clear Cardiovascular: Yes: Regular Rate and Rhythm Respiratory: Yes: Regular, CTA Bilaterally Gastrointestinal: Yes: Normal Bowel Sounds, Soft Musculoskeletal: Yes: WNL Extremities: Yes: WNL Labs: CBC, BMP 03/26/19 07:20 03/26/19 07:20 Assessment/Plan 33 F h/o moderate persistent asthma poorly controlled d/t medicaiton non- compliance, presents with LORI 2/2 ?URI. Patient moving air, however still having persistent wheezing. exacerbation of asthma sob resp difficulty obesity plan continue current mgmt incentive slim rest as per the team await for echo result
[2019-03-26] MEDS: FLUTICASONE PROP 0.05% 16 GM NASAL SPRAY NS SCH ×2 (09:22→21:41)
[2019-03-26] MEDS: BUDESONIDE/FORMETEROL FUMARATE 80/4.5 mcg INHALER IH SCH ×2 (09:23→21:42)
[2019-03-26] MEDS: TETRAHYDROZOLINE HCL EYE DROPS OD SCH ×4 (09:25→21:43)
--- NOTE | 2019-03-26 10:16 | PN ---
Progress Note (short form) - Note Progress Note: PULMONARY States breathing is improving. Still some wheezing. No fevers. Concerned that her SpO2 was low. Vital Signs Period Temp Pulse Resp BP Sys/Stokes Pulse Ox Last 24 Hr 97.2 F-98.4 F 82-110 18-20 104-127/62-74 96 Gen: NAD at rest Heart: RRR Lung: bilateral scattered wheezes Abd: soft, nontender Ext: no edema CBC, BMP 03/26/19 07:20 03/26/19 07:20 Active Medications Acetaminophen (Tylenol -) 650 mg PO Q6H PRN PRN Reason: PAIN LEVEL 4 - 6 Last Admin: 03/26/19 04:44 Dose: 650 mg Albuterol/Ipratropium (Duoneb -) 1 amp NEB RQID [facility] Last Admin: 03/26/19 07:39 Dose: 1 amp Budesonide/Formoterol Fumarate (Symbicort 80/4.5mcg -) 2 puff IH BID [facility] Last Admin: 03/26/19 09:23 Dose: 2 puff Fluticasone Propionate (Flonase -) 1 spray NS BID [facility] Last Admin: 03/26/19 09:22 Dose: 1 spray Guaifenesin (Mucinex -) 600 mg PO BID [facility] Last Admin: 03/26/19 09:17 Dose: 600 mg Sodium Chloride (Normal Saline -) 1,000 mls @ 75 mls/hr IV ASDIR [facility] Last Admin: 03/26/19 09:17 Dose: 75 mls/hr Levalbuterol HCl (Xopenex) 0.63 mg IH Q1H PRN PRN Reason: ASTHMA Last Admin: 03/26/19 04:24 Dose: 0.63 mg Loratadine (Claritin -) 10 mg PO DAILY [facility] Last Admin: 03/26/19 09:17 Dose: 10 mg Melatonin (Melatonin) 10 mg PO HS [facility] Last Admin: 03/25/19 21:42 Dose: 10 mg Metformin HCl (Glucophage -) 500 mg PO HS [facility] Last Admin: 03/25/19 21:42 Dose: 500 mg Methylprednisolone Sodium Succinate (Solu-Medrol -) 40 mg IVPUSH Q8H-IV [facility] Last Admin: 03/26/19 09:17 Dose: 40 mg Montelukast Sodium (Singulair -) 10 mg PO HS [facility] Last Admin: 03/25/19 21:42 Dose: 10 mg Pantoprazole Sodium (Protonix -) 40 mg PO DAILY [facility] Last Admin: 03/26/19 09:17 Dose: 40 mg Tetrahydrozoline HCl (Visine -) 1 drop OD QID [facility] Last Admin: 03/26/19 09:25 Dose: 1 drop A/P Acute Asthma Exacerbation GERD Anxiety - will decrease medrol to q12h - inhaled bronchodilators standing and PRN - O2 to keep SpO2 >90% - intermittent hypoxia likely due to atelectasis - incentive spirometry - symbicort, singulair - monitor peak flow - DVT prophylaxis - outpt PFTs - if continues to improve, can likely change steroids to PO prednisone 40mg daily in AM - plan d/w pt and she agrees
--- NOTE | 2019-03-26 13:31 | ECHO ---
Name: SHEELA SASKIA Exam:Adult Echocardiogram Study Date: 03/26/2019 11:35 AM Age: 33 yrs Reason For Study: check for effusion chest pain Height: 63 in Weight: 204 lb BSA: 2.0 m2 MMode/2D Measurements & Calculations IVSd: 0.97 cm Ao root diam: 2.7 cm LVIDd: 4.3 cm LA dimension: 2.7 cm LVIDs: 2.8 cm LVPWd: 1.2 cm LVPWs: 1.3 cm EDV(Teich): 82.0 ml ESV(Teich): 29.1 ml LAV (MOD-bp): 31.0 ml RV S Pantera: 16.5 cm/sec Doppler Measurements & Calculations MV E max pantera: 81.9 cm/sec Ao V2 max: 148.4 cm/sec MV A max pantera: 72.6 cm/sec Ao max P.8 mmHg MV E/A: 1.1 MV dec time: 0.15 sec LV V1 max P.3 mmHg PA V2 max: 116.1 cm/sec LV V1 max: 103.2 cm/sec PA max P.4 mmHg Med Peak E' Pantera: 9.6 cm/sec Med E/e': 8.5 Lat Peak E' Pantera: 11.6 cm/sec Lat E/e': 7.0 Left Ventricle The left ventricular size, thickness and function are normal. Right Ventricle The right ventricle is grossly normal size. The right ventricular systolic function is normal. Atria Normal left and right atrial size and function. Mitral Valve The mitral valve is grossly normal. Tricuspid Valve The tricuspid valve is not well visualized, but is grossly normal. Aortic Valve The aortic valve is normal in structure and function. Pulmonic Valve The pulmonic valve is not well visualized. Great Vessels The aortic root is normal size. Pericardium/Pleura There is no pericardial effusion. Interpretation Summary Normal Left and right heart size and function No significant valvular dysfunction Pericardim: fat pad, no ovious effusion. Giancarlo Luna 03/26/2019 01:31 PM
--- NOTE | 2019-03-26 14:11 | PN ---
Progress Note, Physician Chief Complaint: No chest pain Lying flat comfortable History of Present Illness: 33 year old female with a PMH of moderate persistent asthma, multiple allergies , and Poly Cystic Ovary Syndrome. She presented with an acute asthma exacerbation triggered by dog dander exposure. She developed brief, sharp, mild sternal chest pain that was non radiating and not associated with exertion. Troponin negative x2 EKG 03/22/2019 Sinus tachycardia at 134 BPM with normal intervals, normal axis, RSR' in V1 and V2, and NSSTTW changes. No change from baseline. - Current Medication List Current Medications: Active Medications Acetaminophen (Tylenol -) 650 mg PO Q6H PRN PRN Reason: PAIN LEVEL 4 - 6 Last Admin: 03/26/19 04:44 Dose: 650 mg Albuterol/Ipratropium (Duoneb -) 1 amp NEB RQID [facility] Last Admin: 03/26/19 11:35 Dose: Not Given Budesonide/Formoterol Fumarate (Symbicort 80/4.5mcg -) 2 puff IH BID [facility] Last Admin: 03/26/19 09:23 Dose: 2 puff Fluticasone Propionate (Flonase -) 1 spray NS BID [facility] Last Admin: 03/26/19 09:22 Dose: 1 spray Guaifenesin (Mucinex -) 600 mg PO BID [facility] Last Admin: 03/26/19 09:17 Dose: 600 mg Sodium Chloride (Normal Saline -) 1,000 mls @ 75 mls/hr IV ASDIR [facility] Last Admin: 03/26/19 09:17 Dose: 75 mls/hr Levalbuterol HCl (Xopenex) 0.63 mg IH Q1H PRN PRN Reason: ASTHMA Last Admin: 03/26/19 04:24 Dose: 0.63 mg Loratadine (Claritin -) 10 mg PO DAILY [facility] Last Admin: 03/26/19 09:17 Dose: 10 mg Melatonin (Melatonin) 10 mg PO HS [facility] Last Admin: 03/25/19 21:42 Dose: 10 mg Metformin HCl (Glucophage -) 500 mg PO HS [facility] Last Admin: 03/25/19 21:42 Dose: 500 mg Methylprednisolone Sodium Succinate (Solu-Medrol -) 40 mg IVPUSH BID [facility] Montelukast Sodium (Singulair -) 10 mg PO [facility] Last Admin: 03/25/19 21:42 Dose: 10 mg Pantoprazole Sodium (Protonix -) 40 mg PO DAILY [facility] Last Admin: 03/26/19 09:17 Dose: 40 mg Tetrahydrozoline HCl (Visine -) 1 drop OD QID [facility] Last Admin: 03/26/19 09:25 Dose: 1 drop - Objective Vital Signs: Vital Signs Temperature 98 F 03/26/19 10:00 Pulse Rate 116 H 03/26/19 10:00 Respiratory Rate 03/26/19 10:00 Blood Pressure 113/75 03/26/19 10:00 O2 Sat by Pulse Oximetry (%) 96 03/26/19 09:00 Constitutional: Yes: No Distress Neck: Yes: Supple Cardiovascular: Yes: Regular Rate and Rhythm, S1, S2. No: Murmur Respiratory: Yes: CTA Bilaterally Gastrointestinal: Yes: Soft Edema: No Labs: CBC, BMP 03/26/19 07:20 03/26/19 07:20 Problem List - Problems (1) Chest pain Code(s): R07.9 - CHEST PAIN, UNSPECIFIED Assessment/Plan 33 year old female with a PMH of moderate persistent asthma, multiple allergies , and Poly Cystic Ovary Syndrome. She presented with an acute asthma exacerbation triggered by dog dander exposure. She developed brief, sharp, mild sternal chest pain that was non radiating and not associated with exertion. Troponin negative x2 EKG 03/22/2019 Sinus tachycardia at 134 BPM with normal intervals, normal axis, RSR' in V1 and V2, and NSSTTW changes. No change from baseline. Chest Pain Atypical and was brief for only seconds and has not returned No EKG of enzyme evidence for a coronary syndrome. Echocardiogram with normal LVEF and no significant valve disease. No pericardial effusion. No further cardiac work up at this time. Will sign off. Please have patient follow up as outpatient with Dr. Cheung [phone]
[2019-03-26 14:36] LABS: ANISOCYTOSIS 1+; MACROCYTOSIS 0; PLATELET ESTIMATE NORMAL; TEAR DROP CELLS 1+
[2019-03-26] MEDS: metFORMIN HCL 500 MG TABLET (FP) PO SCH (21:41)
[2019-03-26] MEDS: MONTELUKAST NA 10 MG TABLET PO SCH (21:42)
[2019-03-26] MEDS: MELATONIN 5 MG TABLETS PO SCH (21:42)
[2019-03-27] MEDS: LEVALBUTEROL HCL 0.63 MG/3 ML VIAL.NEB. IH PRN (05:30)
[2019-03-27] MEDS: ALBUTEROL SO4 2.5/IPRATROPIUM 0.5 INH SOL 3 ML VIAL.NEB. NEB SCH ×2 (07:20→11:00)
[2019-03-27] MEDS: methylPREDNISolone NA SUCC 40 MG/1 ML VIAL IVPUSH SCH (10:30)
[2019-03-27] MEDS: FLUTICASONE PROP 0.05% 16 GM NASAL SPRAY NS SCH (10:30)
[2019-03-27] MEDS: SODIUM CHLORIDE 1,000 ML IV SCH (10:31)
[2019-03-27] MEDS: guaiFENesin 600 MG TABLET.ER (FP) PO SCH (10:31)
[2019-03-27] MEDS: LORATADINE 10 MG TABLET PO SCH (10:31)
[2019-03-27] MEDS: TETRAHYDROZOLINE HCL EYE DROPS OD SCH ×2 (10:31→15:39)
[2019-03-27] MEDS: PANTOPRAZOLE 40 MG TABLET PO SCH (10:39)
[2019-03-27] MEDS: BUDESONIDE/FORMETEROL FUMARATE 80/4.5 mcg INHALER IH SCH (10:40)
--- NOTE | 2019-03-27 10:52 | PN ---
Progress Note (short form) - Note Progress Note: PULMONARY Breathing continues to improve. Less wheezing and cough. Vital Signs Period Temp Pulse Resp BP Sys/Stokes Pulse Ox Last 24 Hr 98.0 F-98.3 F 89-106 20-20 112-128/69-75 97-98 Gen: NAD at rest Heart: RRR Lung: bilateral scattered wheezes Abd: soft, nontender Ext: no edema CBC, BMP 03/26/19 07:20 03/26/19 07:20 Active Medications Acetaminophen (Tylenol -) 650 mg PO Q6H PRN PRN Reason: PAIN LEVEL 4 - 6 Last Admin: 03/26/19 04:44 Dose: 650 mg Albuterol/Ipratropium (Duoneb -) 1 amp NEB RQID [facility] Last Admin: 03/27/19 07:20 Dose: 1 amp Budesonide/Formoterol Fumarate (Symbicort 80/4.5mcg -) 2 puff IH BID [facility] Last Admin: 03/27/19 10:40 Dose: 2 puff Fluticasone Propionate (Flonase -) 1 spray NS BID [facility] Last Admin: 03/27/19 10:30 Dose: 1 spray Guaifenesin (Mucinex -) 600 mg PO BID [facility] Last Admin: 03/27/19 10:31 Dose: 600 mg Sodium Chloride (Normal Saline -) 1,000 mls @ 75 mls/hr IV ASDIR [facility] Last Admin: 03/27/19 10:31 Dose: Not Given Levalbuterol HCl (Xopenex) 0.63 mg IH Q1H PRN PRN Reason: ASTHMA Last Admin: 03/27/19 05:30 Dose: 0.63 mg Loratadine (Claritin -) 10 mg PO DAILY [facility] Last Admin: 03/27/19 10:31 Dose: 10 mg Melatonin (Melatonin) 10 mg PO [facility] Last Admin: 03/26/19 21:42 Dose: 10 mg Metformin HCl (Glucophage -) 500 mg PO [facility] Last Admin: 03/26/19 21:41 Dose: 500 mg Methylprednisolone Sodium Succinate (Solu-Medrol -) 40 mg IVPUSH BID [facility] Last Admin: 03/27/19 10:30 Dose: 40 mg Montelukast Sodium (Singulair -) 10 mg PO [facility] Last Admin: 03/26/19 21:42 Dose: 10 mg Pantoprazole Sodium (Protonix -) 40 mg PO DAILY [facility] Last Admin: 03/27/19 10:39 Dose: 40 mg Tetrahydrozoline HCl (Visine -) 1 drop OD QID [facility] Last Admin: 03/27/19 10:31 Dose: 1 drop A/P Acute Asthma Exacerbation GERD Anxiety - can change steroids to PO prednisone 40mg daily and taper by 10mg q3 days - inhaled bronchodilators standing and PRN - O2 to keep SpO2 >90% - intermittent hypoxia likely due to atelectasis - incentive spirometry - symbicort, singulair - monitor peak flow - DVT prophylaxis - outpt PFTs - can discharge on prednisone taper, symbicort 160/4.5mcg 2 puffs BID, singulair 10mg qhs and xopenex prn - plan d/w pt and she agrees
[2019-03-27] MEDS ORDERED: AZITHROMYCIN 250 MG TABLET PO SCH (11:00)
--- NOTE | 2019-03-27 11:03 | PN ---
Progress Note, Physician - Current Medication List Current Medications: Active Medications Acetaminophen (Tylenol -) 650 mg PO Q6H PRN PRN Reason: PAIN LEVEL 4 - 6 Last Admin: 03/26/19 04:44 Dose: 650 mg Albuterol/Ipratropium (Duoneb -) 1 amp NEB RQID [facility] Last Admin: 03/27/19 07:20 Dose: 1 amp Azithromycin (Zithromax -) 250 mg PO DAILY [facility] Budesonide/Formoterol Fumarate (Symbicort 80/4.5mcg -) 2 puff IH BID [facility] Last Admin: 03/27/19 10:40 Dose: 2 puff Fluticasone Propionate (Flonase -) 1 spray NS BID [facility] Last Admin: 03/27/19 10:30 Dose: 1 spray Guaifenesin (Mucinex -) 600 mg PO BID [facility] Last Admin: 03/27/19 10:31 Dose: 600 mg Sodium Chloride (Normal Saline -) 1,000 mls @ 75 mls/hr IV ASDIR [facility] Last Admin: 03/27/19 10:31 Dose: Not Given Levalbuterol HCl (Xopenex) 0.63 mg IH Q1H PRN PRN Reason: ASTHMA Last Admin: 03/27/19 05:30 Dose: 0.63 mg Loratadine (Claritin -) 10 mg PO DAILY [facility] Last Admin: 03/27/19 10:31 Dose: 10 mg Melatonin (Melatonin) 10 mg PO [facility] Last Admin: 03/26/19 21:42 Dose: 10 mg Metformin HCl (Glucophage -) 500 mg PO HS [facility] Last Admin: 03/26/19 21:41 Dose: 500 mg Methylprednisolone Sodium Succinate (Solu-Medrol -) 40 mg IVPUSH BID [facility] Last Admin: 03/27/19 10:30 Dose: 40 mg Montelukast Sodium (Singulair -) 10 mg PO [facility] Last Admin: 03/26/19 21:42 Dose: 10 mg Pantoprazole Sodium (Protonix -) 40 mg PO DAILY [facility] Last Admin: 03/27/19 10:39 Dose: 40 mg Tetrahydrozoline HCl (Visine -) 1 drop OD QID [facility] Last Admin: 03/27/19 10:31 Dose: 1 drop - Objective Vital Signs: Vital Signs Temperature 98.1 F 03/27/19 06:53 Pulse Rate 89 03/27/19 06:53 Respiratory Rate 20 03/27/19 06:53 Blood Pressure 112/72 03/27/19 06:53 O2 Sat by Pulse Oximetry (%) 98 03/27/19 04:00 Labs: CBC, BMP 03/26/19 07:20 03/26/19 07:20
--- NOTE | 2019-03-27 12:41 | DS ---
Physical Exam: SUBJECTIVE: Patient seen and examined. sitting up eating breakfast. Patient seen and examined at the bedside. tells me that she feels better today. she is able to ambulate in the room without assistance from staff or without assistive devices. she denies any dizziness, denies chest pain, denies shortness of breath. Wants to go home today and asking to be discharged. Wants to follow up with Dr. Park and making an appointment with his office for follow up. OBJECTIVE: Patient is a 33 year old female with a significant past medical history moderate persistent asthma, left shoulder impingement, seasonal allergies, and PCOS (on metformin). Patient presents to [facility] with shortness of breath, wheezing, productive mucus since Tuesday. She was sent to urgent care and referred to the ED for further management. She was admitted for acute asthma exacerbation. On exam patient sitting up in bed, speaking in full sentences, not showing signs of respiratory compromise. She has been treated with a solumedrol taper for acute asthma exacerbation during her hospital stay and will be discharged home today with pulmonary followup. SEE PROBLEM LIST BELOW: Vital Signs Period Temp Pulse Resp BP Sys/Stokes Pulse Ox Last 24 Hr 98.0 F-98.3 F 89-106 20-20 112-128/69-75 97-98 PHYSICAL EXAM GENERAL: The patient is awake, alert, and fully oriented, in no acute distress. HEAD: Normal with no signs of trauma. EYES: PERRL, extraocular movements intact, sclera anicteric, conjunctiva clear. ENT: Ears normal, nares patent, oropharynx clear without exudates, moist mucous membranes. NECK: Trachea midline, full range of motion, supple. LUNGS: mild wheezing on right upper lobe, right lung mid/lower lobe clear. left lung clear. on room air with stable sats. HEART: Regular rate and rhythm, S1, S2 without murmur, rub or gallop. ABDOMEN: Soft, nontender, nondistended, normoactive bowel sounds, no guarding, no rebound, no hepatosplenomegaly, no masses. EXTREMITIES: 2+ pulses, warm, well-perfused, no edema. NEUROLOGICAL: Cranial nerves II through XII grossly intact. Normal speech, gait not observed. PSYCH: Normal mood, normal affect. SKIN: Warm, dry, normal turgor, no rashes or lesions noted. LABS Laboratory Results - last 24 hr 03/26/19 07:20 Neutrophils % (Manual) 81.4 Band Neutrophils % 1.0 Lymphocytes % (Manual) 11.7 Monocytes % (Manual) 3 L D Eosinophils % (Manual) 0.0 Basophils % (Manual) 0.0 Myelocytes % (Man) 1 D Promyelocytes % (Man) 0 Blast Cells % (Manual) 0 Nucleated RBC % 0 Metamyelocytes 1 D Hypochromia 0 Platelet Estimate Normal Platelet Comment Present Polychromasia 0 Poikilocytosis 1+ Anisocytosis 1+ Microcytosis 1+ Macrocytosis 0 Spherocytes 1+ Tear Drop Cells 1+ HOSPITAL COURSE: Date of Admission:03/22/19 Date of Discharge: 03/27/19 Minutes to complete discharge: 60 Discharge Summary Problems reviewed: Yes Reason For Visit: ASTHMA Current Active Problems Asthma (Acute) Asthma exacerbation (Acute) Chest pain (Acute) Ear ache (Acute) Obesity (BMI 30-39.9) (Acute) Prophylactic measure (Acute) Tachycardia with heart rate 100-120 beats per minute (Acute) Condition: Improved - Instructions Diet, Activity, Other Instructions: Mrs Restrepo: You were admitted to [facility] for acute asthma exacerbation on 03/22/2019 and will be discharged home today. When you were admitted, you were seen by pulmonology, cardiology and ID physicians as well as the hospitalists. Here are our discharge instructions: Medications: (1) Prednisone (each prednisone pill is 10mg) Take Prednisone 40mg DAILY once per day on 03/28/2019, 03/29/2019 and 03/30/2019 - 4 pills of 10mg Take Prednisone 30mg DAILY once per day on 03/31/2019, 04/01/2019 and 04/02/2019 - 3 pills of 10mg Take Prednisone 20mg DAILY once per day on 04/03/2019, 04/04/2019 and 04/05/2019 - 2 pills of 10mg Take Prednisone 10mg DAILY once per day on 04/06/2019, 04/07/2019 and 04/08/2019 - 1 pill of 10mg (2) Azithromycin 250mg ONCE per day for 2 more days (to complete a total of a 5 day course) (3) Protonix 40mg daily, take this while you are on the steriods to protect your stomach from the steriods. (4) Continue your home Symbicort twice per day. (5) Xopenex as needed for shortness of breath (6) Singulair 10mg at bedtime for asthma flare prevention Follow ups: Please follow up with Dr. Park for an outpatient follow up. thank you for allowing us to care for you. Referrals: Rey Cheung MD [Staff Physician] - Pallavi Linton MD [Primary Care Provider] - Disposition: HOME - Home Medications Comprehensive Discharge Medication List: Ambulatory Orders Montelukast Na [Singulair -] 10 mg PO HS 03/08/14 Albuterol Sulfate Inhaler - [Ventolin HFA Inhaler -] 1 - 2 inh PO DAILY PRN 12/12 metFORMIN HCL [Metformin HCl] 1,000 mg PO BID 12/05/17 Albuterol 0.083% Nebulizer Melissa [Ventolin 0.083% Nebulizer Soln -] 1 amp NEB TID #30 amp 03/27/19 Albuterol 2.5/Ipratropium 0.5 [Duoneb -] 1 amp NEB RQID amp 03/27/19 Azithromycin [Zithromax 250mg Tablets -] 250 mg PO DAILY #2 tablet 03/27/19 Budesonide/Formeterol Fumarate [SYMBICORT 80/4.5mcg -] 2 puff IH BID #1 inhaler 03/27/19 Fluticasone Prop 0.05% Nasal [Flonase -] 1 spray NS BID #1 spray 03/27/19 Guaifenesin [Mucinex -] 600 mg PO BID tablet.er 03/27/19 Levalbuterol HCl [Xopenex] 0.63 mg IH Q1H PRN #1 vial.neb. 03/27/19 Loratadine [Claritin -] 10 mg PO DAILY tablet 03/27/19 Montelukast Na [Singulair -] 10 mg PO HS #0 tablet 03/27/19 Nebulizer [Aeroeclipse II] 1 each MC TID #1 each 03/27/19 Pantoprazole Sodium [Protonix -] 40 mg PO DAILY #30 tablet.ec 03/27/19 Prednisone 10 mg PO DAILY #30 tablet 03/27/19 Sodium Chloride Inhalation [Normal Saline For Inhalation -] 3 ml IH Q6H #30 vial.neb 03/27/19 Problem List - Problems (1) Asthma Assessment/Plan: Bronchial asthma exacerbation. improved. on nebs, xopenex, solumedrol taper during hospital stay. to be converted to prednisone taper with outpatient follow up with pulmonary. tolerating room air, stable oxygen saturations. pre and post shows patient does not qualify for home oxygen. on mucinex which patient states is helping pulmonary follow up as an outpatient. Code(s): J45.909 - UNSPECIFIED ASTHMA, UNCOMPLICATED Qualifiers: Asthma severity: moderate Asthma persistence: unspecified Asthma complication type: with acute exacerbation Qualified Code(s): J45.901 - Unspecified asthma with (acute) exacerbation (2) Obesity (BMI 30-39.9) Assessment/Plan: weight loss encouraged Code(s): E66.9 - OBESITY, UNSPECIFIED (3) Chest pain Assessment/Plan: c/o of chest pain, right sided yesterday with mild shortness of breath. evaluated by cardiology EKG 03/22/2019 Sinus tachycardia at 134 BPM with normal intervals troponins negative x 3 normal echo, will need outpatient cardiology follow up. Code(s): R07.9 - CHEST PAIN, UNSPECIFIED (4) Ear ache Assessment/Plan: resolved Code(s): H92.09 - OTALGIA, UNSPECIFIED EAR (5) Prophylactic measure Assessment/Plan: discharge home Code(s): Z29.9 - ENCOUNTER FOR PROPHYLACTIC MEASURES, UNSPECIFIED This patient is new to me today: Yes Date on this admission: 03/27/19 Emergency Visit: No Critical Care patient: No - Discharge Referral Referred to [facility] No
[2019-03-27 15:05] VITALS: BP 112/66; PULSE 106; TEMP 98.1
== END 2019-03-27 16:57 | disposition home or self-care (01) | DRG 202 ==
LOC: JER 14:10 → JERBED 17:22 → J8W 20:25
PROVIDERS: ATTEND Nurse Practitioner Family
DX: J45.41 Moderate persistent asthma with (acute) exacerbation (principal); J98.11 Atelectasis; J45.901 Unspecified asthma with (acute) exacerbation; E66.9 Obesity, unspecified; Z68.36 Body mass index [BMI] 36.0-36.9, adult; F41.9 Anxiety disorder, unspecified; K21.9 Gastro-esophageal reflux disease without esophagitis; K76.0 Fatty (change of) liver, not elsewhere classified; J20.9 Acute bronchitis, unspecified; R07.89 Other chest pain; E28.2 Polycystic ovarian syndrome; R00.0 Tachycardia, unspecified; H92.09 Otalgia, unspecified ear; H92.02 Otalgia, left ear; R09.02 Hypoxemia
CPT/HCPCS: 36415; 36600; 71045-TC-FY; 71046-TC-FY; 80053; 80307; 82803; 83036; 83735; 84484; 85025; 87804; 87807; 93005; 93010; 93306-TC; 94150; 94640; 94761; 97116-GP; 97161-GP; 99284-25; J0131; J7030

== ENCOUNTER 2020-03-15 12:35 | Emergency (ER) | payer OTHER ==
[2020-03-15 13:13] VITALS: BP 119/84; PULSE 104; TEMP 98.6; BMI 34.0
[2020-03-15] MEDS ORDERED: SODIUM CHLORIDE 1,000 ML IV SCH (13:15)
[2020-03-15 14:52] LABS: BASO % 0.6 % (0-2.0); EOS % 6.2 % (0-4.5); HEMATOCRIT 39.7 % (32.4-45.2); HEMOGLOBIN 13.1 GM/dL (10.7-15.3); LYMPH % 28.9 % (8-40); MCH 28.3 pg (25.7-33.7); MCHC 32.9 g/dl (32.0-36.0); MEAN PLT VOLUME 8.6 fl (7.5-11.1); MONO % 7.2 % (3.8-10.2); NEUT % 57.1 % (42.8-82.8); PLATELET COUNT 301 K/MM3 (134-434); RBC 4.62 M/mm3 (3.60-5.2); RDW 14.1 % (11.6-15.6); WHITE BLOOD COUNT 7.2 K/mm3 (4.0-10.0)
[2020-03-15 15:10] LABS: ALBUMIN 3.5 g/dl (3.4-5.0); BLOOD UREA NITROGEN 10.1 mg/dL (7-18); CALCIUM 8.6 mg/dL (8.5-10.1)
[2020-03-15 15:16] LABS: BILIRUBIN,TOTAL 0.1 mg/dL (0.2-1); CREATININE 0.8 mg/dL (0.55-1.3); TOT PROT 7.1 g/dl (6.4-8.2)
== END 2020-03-15 16:11 | disposition home or self-care (01) ==
LOC: JER 12:35
DX: B34.9 Viral infection, unspecified (principal); E86.0 Dehydration; M71.21 Synovial cyst of popliteal space [Baker], right knee; Z11.52 Encounter for screening for COVID-19
CPT/HCPCS: 36415; 71046-TC-FY; 80053; 85025; 93971-TC; 99284-25